=== PATIENT | female | born 1950 | race Caucasian/White ===

== ENCOUNTER → 2017-11-29 10:54 | Outpatient (CLI) | payer OTHER, SELFPAY ==
[2017-11-29 12:19] LABS: Add Manual Diff / Slide Review NO; Basophils Percent Auto 0.6 % (0-2); Eosinophils Percent Auto 2.1 % (2-4); Hemoglobin 11.7 g/dL (12.0-16.0); Lymphocytes Percent Auto 26.3 % (25-40); Mean Corpuscular HGB Conc 34.4 % (30-36); Mean Corpuscular Hemoglobin 29.3 PG (26-34); Mean Corpuscular Volume 85.2 fL (80-100); Monocytes Percent Auto 5.5 % (3-14); Neutrophils Absolute Auto 3500 /uL (3000-5900); Neutrophils Percent Auto 65.5 % (50-75); Platelet Count 219 X10^3/uL (150-400); Red Blood Cell Count 3.99 X10^6/uL (4.0-5.2); Red Cell Distribution Width 15.2 % (11.6-14.8); White Blood Cell Count 5.3 X10^3/uL (4.5-11.0)
[2017-11-29 12:46] LABS: Alanine Aminotransferase 21 IU/L (9-52); Albumin 3.7 g/dL (3.5-5.0); Alkaline Phosphatase 76 U/L (38-126); Aspartate Aminotransferase 19 IU/L (14-36); Bilirubin Total 0.4 mg/dL (0.2-1.3); Blood Urea Nitrogen 21 mg/dL (7-17); Carbon Dioxide 27 mmol/L (22-32); Chloride 106 mmol/L (98-107); Estimated Glomerular Filt Rate 34.4 mL/min (>60); Globulin 3.6 g/dL (1.7-4.1); Glucose 94 mg/dL (80-110); HEMOLYSIS < 15 (0-50); Potassium 3.9 mmol/L (3.4-5.1); Sodium 143 mmol/L (137-145); Total Protein 7.3 g/dL (6.3-8.2)
[2017-11-29 12:55] LABS: Cholesterol 165 mg/dL (140-199); HDL Cholesterol 65 mg/dL (40-60); LDL Cholesterol Calculated 75 mg/dL (<100); Triglycerides 124 mg/dL (35-150)
[2017-11-29 13:19] LABS: Thyroid Stimulating Hormone 2.43 uIU/mL (0.47-4.68)
== END ==
PROVIDERS: Family Provider Internal Medicine Hematology & Oncology; PCP Family Medicine; Visit Provider Family Medicine
DX: E03.9 Hypothyroidism, unspecified (principal); E78.5 Hyperlipidemia, unspecified; I10 Essential (primary) hypertension; D64.9 Anemia, unspecified; C50.912 Malignant neoplasm of unspecified site of left female breast
CPT/HCPCS: 36415; 80053; 80061; 84443; 85025

== ENCOUNTER → 2018-01-09 09:58 | Outpatient (CLI) | payer OTHER, SELFPAY ==
--- NOTE | 2018-01-09 10:00 | DI.US.S_ITS ---
ULTRASOUND OF LEFT BREAST: 01/09/2018 Comparison is made to exams dated: 01/09/2018 mammogram, 12/14/2016 mammogram, 02/03/2016 localization, 02/03/2016 specimen, 02/03/2016 mammogram, and 12/31/2015 mammogram - [facility]. Color flow and real-time ultrasound of the left breast were performed on the areas of interest. Valente scale images of the real-time examination were reviewed. There is a post-surgical scar in the left breast at 2 o'clock middle depth. This correlates as palpated and with mammography findings. IMPRESSION: BENIGN There is no sonographic evidence of malignancy. The post-surgical scar in the left breast is benign. However, clinical follow up is recommended. A 1 year screening mammogram is recommended. This exam was interpreted at Station ID: [id number]. Electronically Signed By: Radha peña/:01/09/2018 11:45:02 letter sent: Clinical Evaluation Ultrasound BI-RADS: 2 Benign
--- NOTE | 2018-01-09 10:00 | DI.MG.S_ITS ---
BILATERAL DIGITAL DIAGNOSTIC MAMMOGRAM 3D/2D POST LUMPECTOMY: 01/09/2018 CLINICAL: Left breast mass. Personal history of breast cancer. Family history of breast cancer. Comparison is made to exams dated: 12/14/2016 mammogram, 02/03/2016 localization, and 02/03/2016 [facility]. There are scattered fibroglandular elements in both breasts. No significant masses, calcifications, or other findings are seen in either breast. IMPRESSION: INCOMPLETE: NEEDS ADDITIONAL IMAGING EVALUATION There is no mammographic abnormality seen in the left breast to correspond with the area of clinical concern, however, targeted ultrasound of the left breast is recommended and will be performed immediately following this exam. This exam was interpreted at Station ID: [id number]. NOTE: For mammograms, a report in lay terms will be sent to the patient. Approximately 15% of breast malignancies will not be visualized mammographically. In the management of a palpable breast mass, a negative mammogram must not discourage biopsy of a clinically suspicious lesion. Electronically Signed By: Radha Sharma M.D. lk/:01/09/2018 10:40:11 letter sent: Additional Imaging Needed ACR BI-RADS Category 0: Incomplete [id number]
== END ==
PROVIDERS: Family Provider Internal Medicine Hematology & Oncology; PCP Family Medicine; Visit Provider Internal Medicine Hematology & Oncology
DX: R92.8 Other abnormal and inconclusive findings on diagnostic imaging of breast (principal); L90.5 Scar conditions and fibrosis of skin; Z85.3 Personal history of malignant neoplasm of breast; Z80.3 Family history of malignant neoplasm of breast
CPT/HCPCS: 76642; 77066; G0279

== ENCOUNTER 2018-01-13 16:00 | Oncology outpatient (ONC) | payer OTHER, SELFPAY ==
[2017-08-02 14:25] LABS: Add Manual Diff / Slide Review NO; Basophils Percent Auto 0.9 % (0-2); Eosinophils Percent Auto 2.4 % (2-4); Hematocrit 33.9 % (36-46); Hemoglobin 11.7 g/dL (12.0-16.0); Lymphocytes Percent Auto 25.2 % (25-40); Mean Corpuscular HGB Conc 34.4 % (30-36); Mean Corpuscular Hemoglobin 28.7 PG (26-34); Mean Corpuscular Volume 83.5 fL (80-100); Monocytes Percent Auto 8.2 % (3-14); Neutrophils Absolute Auto 3200 /uL (3000-5900); Neutrophils Percent Auto 63.3 % (50-75); Platelet Count 249 X10^3/uL (150-400); Red Blood Cell Count 4.06 X10^6/uL (4.0-5.2); Red Cell Distribution Width 15.3 % (11.6-14.8)
[2017-08-02 14:41] LABS: Alanine Aminotransferase 24 IU/L (9-52); Albumin Globulin Ratio 1.1 (1.0-2.8); Alkaline Phosphatase 95 U/L (38-126); Aspartate Aminotransferase 18 IU/L (14-36); BUN Creatinine Ratio 12.9 (6-22); Bilirubin Total 0.4 mg/dL (0.2-1.3); Blood Urea Nitrogen 18 mg/dL (7-17); Calcium 9.3 mg/dL (8.4-10.2); Carbon Dioxide 28 mmol/L (22-32); Chloride 102 mmol/L (98-107); Estimated Glomerular Filt Rate 37.3 mL/min (>60); Globulin 3.6 g/dL (1.7-4.1); Glucose 106 mg/dL (80-110); HEMOLYSIS < 15 (0-50); Potassium 3.8 mmol/L (3.4-5.1); Sodium 139 mmol/L (137-145); Total Protein 7.6 g/dL (6.3-8.2)
--- NOTE | 2017-08-02 16:58 | ONC.GEN.PN ---
Diagnosis (1) Breast cancer, left breast Diagnosis: 08/02/17 16:59 1. Antecedent history of left-sided breast cancer, following a confirmatory needle biopsy on 12/31/2015. Tissue consistent with infiltrating ductal carcinoma. ERA/PRA receptors both strongly positive. The Her 2 [place] protein was under expressed. The patient went on to have a left lumpectomy and sentinel node biopsy on 02/03/2016. Four sentinel lymph nodes were negative for metastatic disease. Grade 2 disease. The primary tumor measured 9 mm. Patient was staged as T1b, N0, grade 2. Oncotype testing on 02/13/2016 confirmed a recurrence score of 10. The patient went on to complete radiation therapy. Initiated on Femara 04/15/2016. Very poorly tolerated. Subsequently discontinued after approximately 1 month of coverage. No subsequent antiestrogen therapy pursued. 2. Recently confirmed atrial fibrillation, under management. 3. Next mammography screening due in either December or January of this year. History of Present Illness History Of Present Illness: 08/02/17 17:03 Marifer returns today for routine follow-up. Her last visit here was in late August of last year. Overall she continues to do very well. She is pain-free. She still has dyspnea on exertion, which she attributes to generalized deconditioning and her weight. Home Medications and Allergies Home Medications Medication Instructions Recorded Confirmed Type cholecalciferol (vitamin D3) 4,000 Q DAY #0 10/10/15 History [Vitamin D3] metronidazole [Metrogel Vaginal] 1 appl TOPICAL HSP #0 04/15/16 History potassium chloride [Klor-Con M20] 20 meq PO [facility] #90 tab 09/03/16 Rx furosemide 20 mg PO QDAY #90 tab 11/04/16 Rx atorvastatin [Lipitor] 20 mg PO HS #90 tab 12/09/16 Rx warfarin [Jantoven] 0 PO SEE INSTRUCTIONS #100 tab 05/31/17 Rx levothyroxine 137 mcg tablet 137 mcg PO Q DAY #90 tab 07/19/17 Rx Allergies Allergy/AdvReac Type Severity Reaction Status Date / Time nickel [NICKEL] Allergy Mild RASH Unverified 06/15/17 13:04 Exam Exam: Blood pressure 156/79. Temperature 98.2??. Pulse rate 72. O2 saturation on room air was 97%. Weight 231 lb. The oropharynx today was clear. Teeth were in excellent repair. There was no direct percussible spinal tenderness. There was no palpable rib cage tenderness. Both lungs were clear to auscultation and percussion. No pathologic lymphadenopathy was noted today in the pre or postauricular, neck, chin, supraclavicular or axillary areas. The breast examination was quite unremarkable bilaterally. There was little if any seroma effect or induration in the left breast. Heart sounds were fine. Her abdomen was soft, nontender and without palpable hepatomegaly. There was no left upper extremity lymphedema. There was no lower extremity fluid retention. Results - Labs 08/02/17 14:13 08/02/17 14:13 Laboratory Last Values WBC 5.0 X10^3/uL (4.5-11.0) 08/02/17 14:13 RBC 4.06 X10^6/uL (4.0-5.2) 08/02/17 14:13 Hgb 11.7 g/dL (12.0-16.0) L 08/02/17 14:13 Hct 33.9 % (36-46) L 08/02/17 14:13 MCV 83.5 fL (80-100) 08/02/17 14:13 MCH 28.7 PG (26-34) 08/02/17 14:13 MCHC 34.4 % (30-36) 08/02/17 14:13 RDW 15.3 % (11.6-14.8) H 08/02/17 14:13 Plt Count 249 X10^3/uL (150-400) 08/02/17 14:13 Neut % (Auto) 63.3 % (50-75) 08/02/17 14:13 Lymph % (Auto) 25.2 % (25-40) 08/02/17 14:13 [place] % (Auto) 8.2 % (3-14) 08/02/17 14:13 Eos % (Auto) 2.4 % (2-4) 08/02/17 14:13 Baso % (Auto) 0.9 % (0-2) 08/02/17 14:13 Neut # (Auto) 3200 /uL (5264-9352) 08/02/17 14:13 Sodium 139 mmol/L (137-145) 08/02/17 14:13 Potassium 3.8 mmol/L (3.4-5.1) 08/02/17 14:13 Chloride 102 mmol/L (98-107) 08/02/17 14:13 Carbon Dioxide 28 mmol/L (22-32) 08/02/17 14:13 BUN 18 mg/dL (7-17) H 08/02/17 14:13 Creatinine 1.40 mg/dL (0.52-1.04) H 08/02/17 14:13 Estimated GFR 37.3 mL/min (>60) L 08/02/17 14:13 BUN/Creatinine Ratio 12.9 (6-22) 08/02/17 14:13 Glucose 106 mg/dL (80-110) 08/02/17 14:13 Calcium 9.3 mg/dL (8.4-10.2) 08/02/17 14:13 Total Bilirubin 0.4 mg/dL (0.2-1.3) 08/02/17 14:13 AST 18 IU/L (14-36) 08/02/17 14:13 ALT 24 IU/L (9-52) 08/02/17 14:13 Alkaline Phosphatase 95 U/L (38-126) 08/02/17 14:13 Total Protein 7.6 g/dL (6.3-8.2) 08/02/17 14:13 Albumin 4.0 g/dL (3.5-5.0) 08/02/17 14:13 Globulin 3.6 g/dL (1.7-4.1) 08/02/17 14:13 Albumin/Globulin Ratio 1.1 (1.0-2.8) 08/02/17 14:13 Impression Marifer is now about 18 months out from her surgery. Her examination today was fine. I did make a strong pitch today for her to be initiated on tamoxifen. She had a terrible go of things with the Femara. She was warned about the rare side effects of endometrial cancer and thrombus. She will call immediately for any vaginal bleeding, unilateral leg swelling or unexplained acute dyspnea. I made note today of her borderline anemia and serum creatinine of 1.6 in late April. I will plan to recheck both of those tests today before her departure. I have her returning for routine follow-up in 3 months. She will see one of our new colleagues at that time. Addendum: Marfier's follow-up CBC today shows improvement in her hemoglobin level from 11.0 to 11.9. Her white count, MCV and platelet count were all normal. Her serum creatinine improved from 1.6 to 1.4. We will follow up again regarding these numbers when she returns for her 3 month revisitatation.
[2017-08-04 18:42] LABS: Cancer Antigen 27.29 17 U/mL (< 38)
--- NOTE | 2017-12-12 12:44 | ONC.PN ---
PN -Subjective Interval history: Chief complaint 67-year-old female with left breast cancer here for scheduled follow-up. History of present illness Mrs. Marifer Harris is a 67-year-old female with left sided breast cancer. It was confirmed by needle biopsy on December the 08/25/2015. And the histology was consistent with infiltrating ductal carcinoma. The cancer is ER positive NV positive and her 2 negative. The patient went on to have a left lumpectomy and sentinel lymph node biopsy on February 03, 2016. Four lymph nodes were negative for metastasis. Grade 2 disease. The primary tumor measured 9 mm. Patient was staged pT1 B N0 grade 2. Oncotype recurrence score performed on February 13, 2016 was 10. Patient then completed a full course of radiation treatment. She was initiated on Femara on April 15, 2016. Patient tolerated extremely poor and had to stop about 1 month later. She was evaluated by Dr. Coleman about in July of 2017, who pursuaded her to start treatment with tamoxifen. Patient said that she is now taking tamoxifen 20 mg once daily and tolerated very well. She recalled that when she was on Femara, she had no energy at all and felt terrible. She was also found to have a kidney damage after she was started on Femara. During her previous visit with Dr. Coleman, the kidney function has been stable with creatinine level 1.4. Patient presents here today for continued follow-up. Patient is not taking in addition warfarin for atrial fibrillation. She denies any abnormal bleeding. Patient reports good energy and good appetite. Her weight has been stable. Patient has not had her annual mammogram yet has already received the reminder. - Additional ROS All systems PM: reviewed and no additional remarkable complaints except as stated Home Medications and Allergies Home Medications Medication Instructions Recorded Confirmed Type cholecalciferol (vitamin D3) 4,000 units PO Q DAY #0 10/10/15 12/12/17 History [Vitamin D3] atorvastatin 20 mg tablet 20 mg PO HS #90 tab 09/26/17 12/12/17 Rx furosemide 20 mg tablet 20 mg PO QDAY #90 tab 09/26/17 12/12/17 Rx metronidazole 0.75 % vaginal gel 0.75 % VAG BEDTIME PRN #0 gram 09/26/17 12/12/17 History potassium chloride ER 20 mEq 20 meq PO [facility] #90 tab 09/26/17 12/12/17 Rx tablet,extended release(part/cryst) tamoxifen 20 mg tablet 20 mg PO DAILY 09/26/17 12/12/17 History warfarin 5 mg tablet 5 mg PO SEE INSTRUCTIONS #100 tab 09/27/17 12/12/17 Rx levothyroxine 137 mcg tablet 137 mcg PO Q DAY #90 tab 10/26/17 12/12/17 Rx Allergies Allergy/AdvReac Type Severity Reaction Status Date / Time nickel [NICKEL] Allergy Mild RASH Verified 11/15/17 15:32 Exam Vital signs: Temperature 97.6?, heart rate 74, respiratory rate 17, blood pressure 138/74, saturation 99% on room air, weight 105.4 kilos. ECOG 1 Narrative: Constitutional: Well developed, well nourished, not in any acute respiratory distress, average body habitus, well groomed, pleasant and cooperative. HEENT: Normocephalic atraumatic. Extraocular muscle movement intact. Pupils are round, equal and reactive to light and accommodations. Anicteric sclera. No hearing difficulty; Oral mucus membrane moist and without ulcers. Neck: Supple, symmetrical, and tracheal midline; No palpable thyromegaly and no palpable lymph nodes. Respiratory: No use of accessory muscles. Clear to auscultation, and no wheezes or rales or rubs. Cardiovascular: Regular rate and rhythm, S1 and S2 normal, no murmurs gallops or rubs. No JVD. No pitting edema of lower extremities. Abdomen: Soft, nontender, non-distended, bowel sounds normal, no palpable organomegaly, no hernia, no palpable masses. Lower extremities: No palpable pedal edema. Lymphatic: no palpable lymph nodes in the neck, axillae, or groins. Musculoskeletal: normal gait and station, no clubbing, no cyanosis, no pitting edema. Skin: no rashes, no ulcers, no petechiae Neurological: Awake and alert and oriented x3. CN II-XII grossly intact. No focal motor or sensory deficit. Psychiatric: Good judgment, good insight, normal affect, normal thought process, cooperative, no depression, no anxiety. Breast exam: Right: The nipple is not retracted, no skin changes. No palpable masses or nodules and no palpable lymph nodes in the right axilla. Left: The nipple is without any retraction. There is no skin changes. There is surgical wound that has completely healed. There is a 1 cm size nodule at about 2-3 o'clock location just adjacent to the surgical wound. Nontender. No palpable lymph nodes in the left axilla. Physical examinations were chaperoned. Results - Labs All the lab results were reviewed with the patient. The most recent laboratory tests were performed on November 29, 2017 and creatinine level is 1.5 which is slightly higher than previous 1.4 in July of 2017. No other abnormal findings of of the blood work, except mild anemia which is stable. Hgb was 11.7 Assessment and Plan (1) Breast cancer, left breast Patient will continue to take the tamoxifen 20 mg once daily. I once again emphasized the potential side effects associated with the use of tamoxifen especially endometrial carcinoma as well as the increased risk of thromboembolism. Patient voiced understanding. Patient is now taking warfarin for her atrial fibrillation. It will help prevent the thromboembolism. Patient is due for her annual mammogram. I will order the mammogram I will bring the patient back after the mammogram is done. On my physical examination, there is a 1 cm nodule in the left breast at 2-3 o'clock region which could be just a scar after the previous breast surgery. (2) CKD (chronic kidney disease) stage 3, GFR 30-59 ml/min Patient has a chronic kidney disease stage 3. The exact etiology is not sure. The relationship with Femara is also uncertain. I encouraged the patient to stay follow-up with her primary care provider and also possibly referred to kidney specialist to establish care. Patient voiced understanding. (3) Anemia Chronic anemia probably related to the chronic kidney disease. We will continue to follow since it is stable without any symptoms.
[2017-12-12 13:20] VITALS: BP 138/74; PULSE 74; RESP 17; TEMP 36.4; O2SAT 99
--- NOTE | 2018-01-02 11:18 | ONC.NAV ---
Description: Survivorship Care Plan Summary Activity: Copy sent to patient, PCP notified that a copy can be found scanned into the patient's EMR.
[2018-01-13 16:15] VITALS: BP 134/61; PULSE 73; RESP 18; TEMP 36.7; O2SAT 99
--- NOTE | 2018-01-13 16:36 | ONC.PN ---
PN -Subjective Interval history: 67-year-old female with left breast cancer here for scheduled follow-up. Since her previous visit, patient underwent a mammogram on January 09, 2018. The mammogram showed scattered fibroglandular elements in both breasts. The same day ultrasound showed no sonographic evidence malignancy. A 1 year screening mammogram is recommended. In addition patient also was evaluated by Nephrology. History of present illness Mrs. Marifer Harris is a 67-year-old female with left sided breast cancer. It was confirmed by needle biopsy on Dec 11, 2015. 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 The cancer is ER positive [place] positive and HER2 negative. The patient went on to have a left lumpectomy and sentinel lymph node biopsy on Feb 03, 2016. Four lymph nodes were negative for metastasis. Grade 2 disease. The primary tumor measured 9 mm. Patient was staged pT1b N0, grade 2. Oncotype recurrence score performed on Feb 13, 2016 was 10. Patient then completed a full course of radiation treatment. She was initiated on Femara on Apr 15, 2016. Patient tolerated extremely poor and had to stop about 1 month later. She was evaluated by Dr. Coleman about in July of 2017, who pursuaded her to start treatment with tamoxifen. Patient said that she is now taking tamoxifen 20 mg once daily and tolerated very well. She recalled that when she was on Femara, she had no energy at all and felt terrible. She was also found to have a kidney damage after she was started on Femara. During her previous visit with Dr. Coleman, the kidney function has been stable with creatinine level 1.4. Patient presents here today for continued follow-up. Patient is now taking in addition warfarin for atrial fibrillation. . - Additional ROS All systems PM: reviewed and no additional remarkable complaints except as stated Home Medications and Allergies Home Medications Medication Instructions Recorded Confirmed Type cholecalciferol (vitamin D3) 4,000 units PO Q DAY #0 10/10/15 12/12/17 History [Vitamin D3] atorvastatin 20 mg tablet 20 mg PO HS #90 tab 09/26/17 12/12/17 Rx furosemide 20 mg tablet 20 mg PO QDAY #90 tab 09/26/17 12/12/17 Rx metronidazole 0.75 % vaginal gel 0.75 % VAG BEDTIME PRN #0 gram 09/26/17 12/12/17 History potassium chloride ER 20 mEq 20 meq PO [facility] #90 tab 09/26/17 12/12/17 Rx tablet,extended release(part/cryst) tamoxifen 20 mg tablet 20 mg PO DAILY 09/26/17 12/12/17 History warfarin 5 mg tablet 5 mg PO SEE [facility] #100 tab 09/27/17 12/12/17 Rx levothyroxine 137 mcg tablet 137 mcg PO Q DAY #90 tab 10/26/17 12/12/17 Rx Allergies Allergy/AdvReac Type Severity Reaction Status Date / Time nickel [NICKEL] Allergy Mild RASH Verified 11/15/17 15:32 Exam Vital signs: Temp 98.1 F 01/13/18 16:15 Pulse 73 01/13/18 16:15 Resp 18 01/13/18 16:15 BP 134/61 01/13/18 16:15 Pulse Ox 99 01/13/18 16:15 ECOG 1 Narrative: Constitutional: Well developed, well nourished, not in any acute respiratory distress, average body habitus, well groomed, pleasant and cooperative. HEENT: Normocephalic atraumatic. Extraocular muscle movement intact. Pupils are round, equal and reactive to light and accommodations. Anicteric sclera. No hearing difficulty; Oral mucus membrane moist and without ulcers. Neck: Supple, symmetrical, and tracheal midline; No palpable thyromegaly and no palpable lymph nodes. Respiratory: No use of accessory muscles. Clear to auscultation, and no wheezes or rales or rubs. Cardiovascular: Regular rate and rhythm, S1 and S2 normal, no murmurs gallops or rubs. No JVD. No pitting edema of lower extremities. Abdomen: Soft, nontender, non-distended, bowel sounds normal, no palpable organomegaly, no hernia, no palpable masses. Lower extremities: No palpable pedal edema. Lymphatic: no palpable lymph nodes in the neck, axillae, or groins. Musculoskeletal: normal gait and station, no clubbing, no cyanosis, no pitting edema. Skin: no rashes, no ulcers, no petechiae Neurological: Awake and alert and oriented x3. CN II-XII grossly intact. No focal motor or sensory deficit. Psychiatric: Good judgment, good insight, normal affect, normal thought process, cooperative, no depression, no anxiety. Breast exam: DEFERRED. Results - Labs Lab from november 29, 2017: wbc 5.3, hemoglobin 11.7, hematocrit 34, platelets 219, sodium 143, potassium 3.9, chloride 106, carbon dioxide 27, BUN 21, creatinine 1.5, EGFR 34.4, glucose level 94, calcium 9.0, total bilirubin 0.4, total protein 7.3, albumin 3.7, triglyceride 124, cholesterol 165, LDL cholesterol 75 high density cholesterol 65 Assessment and Plan (1) Breast cancer, left breast I reviewed the mammogram and the ultrasound study of the left breast with the patient. There is no evidence of abnormal findings. A 1 year follow-up screening mammogram is recommended. Plan 1. Continue Tamoxifen 20 mg daily 2. RTC in 6 months, CBC, CMP 3. Next mammogram due in one year (01/2019) (2) CKD (chronic kidney disease) stage 3, GFR 30-59 ml/min Patient has a chronic kidney disease stage 3. The exact etiology is not sure. The relationship with Femara is also uncertain. 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 Alvarez (3) Anemia Chronic anemia probably related to the chronic kidney disease. We will continue to follow since it is stable without any symptoms. Plan: Surveillance.
--- NOTE | 2018-01-13 16:47 | P.PNONC_ITS ---
PN -Subjective Interval history: 67-year-old female with left breast cancer here for scheduled follow-up. Since her previous visit, patient underwent a mammogram on January 09, 2018. The mammogram showed scattered fibroglandular elements in both breasts. The same day ultrasound showed no sonographic evidence malignancy. A 1 year screening mammogram is recommended. In addition patient also was evaluated by Nephrology. History of present illness Mrs. Marifer Harris is a 67-year-old female with left sided breast cancer. It was confirmed by needle biopsy on Dec 11, 2015. 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 The cancer is ER positive SD positive and HER2 negative. The patient went on to have a left lumpectomy and sentinel lymph node biopsy on Feb 03, 2016. Four lymph nodes were negative for metastasis. Grade 2 disease. The primary tumor measured 9 mm. Patient was staged pT1b N0, grade 2. Oncotype recurrence score performed on Feb 13, 2016 was 10. Patient then completed a full course of radiation treatment. She was initiated on Femara on Apr 15, 2016. Patient tolerated extremely poor and had to stop about 1 month later. She was evaluated by Dr. Coleman about in July of 2017, who pursuaded her to start treatment with tamoxifen. Patient said that she is now taking tamoxifen 20 mg once daily and tolerated very well. She recalled that when she was on Femara, she had no energy at all and felt terrible. She was also found to have a kidney damage after she was started on Femara. During her previous visit with Dr. Coleman, the kidney function has been stable with creatinine level 1.4. Patient presents here today for continued follow-up. Patient is now taking in addition warfarin for atrial fibrillation. . - Additional ROS All systems PM: reviewed and no additional remarkable complaints except as stated Home Medications and Allergies Home Medications Medication Instructions Recorded Confirmed Type cholecalciferol (vitamin D3) 4,000 units PO Q DAY #0 10/10/15 12/12/17 History [Vitamin D3] atorvastatin 20 mg tablet 20 mg PO HS #90 tab 09/26/17 12/12/17 Rx furosemide 20 mg tablet 20 mg PO QDAY #90 tab 09/26/17 12/12/17 Rx metronidazole 0.75 % vaginal gel 0.75 % VAG BEDTIME PRN #0 gram 09/26/17 History potassium chloride ER 20 mEq 20 meq PO AMCC #90 tab 09/26/17 12/12/17 Rx tablet,extended release(part/cryst) tamoxifen 20 mg tablet 20 mg PO DAILY 09/26/17 12/12/17 History warfarin 5 mg tablet 5 mg PO SEE INSTRUCTIONS #100 tab 09/27/17 12/12/17 Rx levothyroxine 137 mcg tablet 137 mcg PO Q DAY #90 tab 10/26/17 12/12/17 Rx Allergies Allergy/AdvReac Type Severity Reaction Status Date / Time nickel [NICKEL] Allergy Mild RASH Verified 11/15/17 15:32 Exam Vital signs: 3 Temp 98.1 F 01/13/18 16:15 Pulse 73 01/13/18 16:15 Resp 18 01/13/18 16:15 BP 134/61 01/13/18 16:15 Pulse Ox 99 01/13/18 16:15 ECOG 1 Narrative: Constitutional: Well developed, well nourished, not in any acute respiratory distress, average body habitus, well groomed, pleasant and cooperative. HEENT: Normocephalic atraumatic. Extraocular muscle movement intact. Pupils are round, equal and reactive to light and accommodations. Anicteric sclera. No hearing difficulty; Oral mucus membrane moist and without ulcers. Neck: Supple, symmetrical, and tracheal midline; No palpable thyromegaly and no palpable lymph nodes. Respiratory: No use of accessory muscles. Clear to auscultation, and no wheezes or rales or rubs. Cardiovascular: Regular rate and rhythm, S1 and S2 normal, no murmurs gallops or rubs. No JVD. No pitting edema of lower extremities. Abdomen: Soft, nontender, non-distended, bowel sounds normal, no palpable organomegaly, no hernia, no palpable masses. Lower extremities: No palpable pedal edema. Lymphatic: no palpable lymph nodes in the neck, axillae, or groins. Musculoskeletal: normal gait and station, no clubbing, no cyanosis, no pitting edema. Skin: no rashes, no ulcers, no petechiae Neurological: Awake and alert and oriented x3. CN II-XII grossly intact. No focal motor or sensory deficit. Psychiatric: Good judgment, good insight, normal affect, normal thought process , cooperative, no depression, no anxiety. Breast exam: DEFERRED. Results - Labs Lab from november 29, 2017: wbc 5.3, hemoglobin 11.7, hematocrit 34, platelets 219, sodium 143, potassium 3.9, chloride 106, carbon dioxide 27, BUN 21, creatinine 1.5, EGFR 34.4, glucose level 94, calcium 9.0, total bilirubin 0.4, total protein 7.3, albumin 3.7, triglyceride 124, cholesterol 165, LDL cholesterol 75 high density cholesterol 65 Assessment and Plan (1) Breast cancer, left breast I reviewed the mammogram and the ultrasound study of the left breast with the patient. There is no evidence of abnormal findings. A 1 year follow-up screening mammogram is recommended. Plan 1. Continue Tamoxifen 20 mg daily 2. RTC in 6 months, CBC, CMP 3. Next mammogram due in one year (01/2019) (2) CKD (chronic kidney disease) stage 3, GFR 30-59 ml/min Patient has a chronic kidney disease stage 3. The exact etiology is not sure. The relationship with Femara is also uncertain. I encouraged the patient to stay follow-up with her primary care provider Plan: She is now being followed by hospice rn Dr. Alvarez (3) Anemia Chronic anemia probably related to the chronic kidney disease. We will continue to follow since it is stable without any symptoms. Plan: Surveillance.
--- NOTE | 2018-01-23 16:00 | PC.NURSE ---
Triage: pt called to ask when she is supposed to get a screening mammogram next. Per Dr Gomez's dictation, pt is due for her next screening mammogram in 1 year 01/2019. Pt states she was confused because she got a letter from radiology stating that she may need further imaging tests. Explained that she already had ultrasound which confirmed the findings of no abnormalities found by mammogram. Nothing in Dr Gomez's note suggests any further imaging needs to be done currently.
== END 2018-01-14 12:00 ==
PROVIDERS: Family Provider Family Medicine; PCP Family Medicine; Visit Provider Internal Medicine Hematology & Oncology
DX: C50.912 Malignant neoplasm of unspecified site of left female breast (principal); I48.91 Unspecified atrial fibrillation; N18.3 Chronic kidney disease, stage 3 (moderate); Z17.0 Estrogen receptor positive status [ER+]; D64.9 Anemia, unspecified; Z79.810 Long term (current) use of selective estrogen receptor modulators (SERMs); Z79.01 Long term (current) use of anticoagulants
CPT/HCPCS: 36415; 80053; 85025; 86300; 99214; 99215

== ENCOUNTER → 2018-02-09 10:07 | Outpatient (CLI) | payer OTHER, SELFPAY ==
--- NOTE | 2018-02-09 | DI.US.S_ITS ---
PROCEDURE: US RENAL COMPLETE INDICATIONS: CHRONIC KIDNEY DISEASE TECHNIQUE: Real-time scanning was performed of the kidneys and bladder, with image documentation. COMPARISON: [facility], , RENAL COMPLETE, 10/11/2016, 13:27. FINDINGS: Kidneys: Kidneys are normal in size. Right kidney measures 10.3 cm long; left kidney measures 10.1 cm long. Right renal cortical thickness is 1.4 cm; left renal cortical thickness is 1.2 cm. Renal cortical echotexture is normal. No hydronephrosis or nephrolithiasis. No suspicious solid mass lesions. Bladder: Pre-void bladder volume is 91 mL. Post-void residual is 7 mL. Pre-void images demonstrate no intraluminal masses or stones. On pre-void images, bilateral ureteral jets are noted with color Doppler interrogation. (Of note, ureteral jets may not be detectable in up to 25% of cases due to insufficient differences in specific gravity between ureteral and bladder urine). Miscellaneous: No free pelvic fluid. IMPRESSION: Normal appearance of the kidneys. Dictated by: Mc VALE Interpreted: Joaquín Hernandez MD on 02/09/2018 at 14:21 Approved by: Joaquín Hernandez M.D. on 02/09/2018 at 16:42
== END ==
PROVIDERS: PCP Family Medicine; Visit Provider Physician Assistant
DX: N18.9 Chronic kidney disease, unspecified (principal)
CPT/HCPCS: 76770

== ENCOUNTER 2018-03-22 09:37 | Emergency (ER) | payer OTHER, SELFPAY ==
[2018-03-22 09:40] VITALS: BP 150/67; PULSE 82; RESP 18; TEMP 36.7; O2SAT 95
--- NOTE | 2018-03-22 09:49 | ED.GIBLEED ---
HPI - GI Bleed General Chief complaint: Syncope Stated complaint: passed out last night,blood in stool Time Seen by Provider: 03/22/18 09:47 Source: patient and family Mode of arrival: ambulatory Limitations: no limitations History of Present Illness HPI Narrative: 67-year-old female, former smoker presents with a chief complaint a near syncopal episode last evening. She has had trouble with cramping abdominal discomfort off for many months. Typically her symptoms will last a short bit and then she feels better. She is unable to establish any pattern to these cramps but she has been evaluated multiple times. Yesterday the patient was walking when her cramps became very sudden and intense causing her to feel sweaty and then lightheaded. She helped herself to the ground and may or may not have passed out completely. She denies any chest pain or shortness of breath. Her symptoms past after 15 min or so and she was at her normal baseline until this morning when she had a bowel movement and noticed some blood on toilet paper. Given that she is on Coumadin for her AFib and had this near syncopal episode she was instructed by her primary care provider to present to the emergency department for evaluation MD complaint: blood on toilet paper Onset (ago): day(s) Pain Consistency: intermittent, now resolved and colicky Severity: moderate Relieving factors: none Exacerbating factors: none Context: anticoagulant use Associated symptoms: abdominal pain Treatments Prior to Arrival: none Related Data Home Medications Medication Instructions Recorded Confirmed tamoxifen 20 mg tablet 20 mg PO DAILY 09/26/17 03/22/18 atorvastatin [Lipitor] 20 mg PO BEDTIME 03/22/18 03/22/18 diltiazem HCl [Cartia XT] 300 mg PO QPM 03/22/18 03/22/18 flecainide 100 mg PO Q12H 03/22/18 03/22/18 levothyroxine 137 mcg PO DAILY 03/22/18 03/22/18 metronidazole 1 applic TOPICAL BEDTIME PRN 03/22/18 03/22/18 warfarin 5 mg PO MOTUWETHFRSA 03/22/18 03/22/18 warfarin [Jantoven] 7.5 mg PO FARRELL 03/22/18 03/22/18 Allergies Allergy/AdvReac Type Severity Reaction Status Date / Time nickel [NICKEL] Allergy Mild RASH Verified 11/15/17 15:32 Review of Systems Constitutional Denies chills, Denies fever(s), Denies lethargy and Denies weakness Eyes Denies change in vision, Denies eye discharge, Denies irritation and Denies loss of vision ENT Ears, Nose, Mouth, and Throat: Denies change in voice, Denies neck pain and Denies sore throat Cardiovascular Denies chest pain, Denies irregular heart rhythm, Denies lightheadedness, Denies palpitations, Denies dyspnea, Denies dyspnea on exertion and Denies orthopnea Respiratory Denies cough, Denies dyspnea, Denies dyspnea on exertion and Denies wheezing Gastrointestinal Gastrointestinal: Reports abdominal pain, Denies change in bowel habits, Denies diarrhea, Denies nausea and Denies vomiting Genitourinary Denies hematuria, Denies flank pain, Denies urinary incontinence and Denies urinary urgency Musculoskeletal Denies neck pain Integumentary/Breasts Denies pruritus, Denies erythema, Denies rash and Denies wounds Neurologic Denies confusion, Denies loss of vision and Denies weakness Psychiatric Denies anxiety, Denies confusion, Denies depression, Denies homicidal ideation and Denies suicidal ideation Endocrine Denies palpitations Hematologic/Lymphatic Denies easy bruising Allergic/Immunologic Denies wheezing [facility] Medical History Atrial fibrillation (Chronic) Depression (Chronic 1997) Dyspepsia (Chronic) Hypothyroidism (Chronic 1997) Menopause (Chronic) Mitral regurgitation (Chronic 05/2014) Rosacea (Chronic 2015) Sleep apnea (Chronic) Ankle pain (Resolved 2015) Chicken pox (Resolved ~1962) Foot pain (Resolved 2015) Mumps (Resolved ~1957) Surgical History Anesthesia (Resolved) History of bilateral salpingo-oophorectomy (BSO) (Resolved 11/26/16) History of cardiac radiofrequency ablation (RFA) (Resolved 01/2015) History of knee replacement (Resolved 10/04/08) Status post tubal ligation (Resolved 1979) Family History Brother Tachycardia Hyperlipidemia Alzheimer's dementia, Onset Age: 55 Bladder cancer Father CAD (coronary artery disease) Mother Age: 90 Hypothyroidism DDD (degenerative disc disease) Dementia Grandfather Heart disease Grandmother Heart disease Grandfather No problems noted. Grandmother No problems noted. Social History marital status: household members: family lives independently: Yes caregiver/support person: No housing: house Smoking Status: Former smoker second hand exposure: No alcohol intake: never substance use type: does not use Exam Narrative Exam Narrative: GENERAL: 67-year-old female, pleasant, resting comfortably minimal distress HEAD: Atraumatic. Normocephalic. No temporal or scalp tenderness. EYES: Pupils equal round and reactive. Extraocular motions intact. No scleral icterus. No injection or drainage. ENT: Nose without bleeding, purulent drainage or septal hematoma. Throat without erythema, tonsillar hypertrophy or exudate. Uvula midline. Airway patent. NECK: Trachea midline. No JVD or lymphadenopathy. Supple, nontender, no meningeal signs. CARDIOVASCULAR: Regular rate and rhythm without murmurs, gallops, or rubs. RESPIRATORY: Clear to auscultation. Breath sounds equal bilaterally. No wheezes, rales, or rhonchi. GASTROINTESTINAL: Abdomen soft, non-tender, nondistended. No hepato-splenomegaly, or palpable masses. No guarding. RECTAL: Very minimal amount of bright red blood on tip of finger. No hernia fissure or pain on palpation. This test performed with patient's permission and female nursing clinical recruiter at bedside EXTREMITIES: No clubbing, cyanosis, or edema. No joint tenderness, effusion, or edema noted. BACK: Nontender without deformity or crepitance. No flank tenderness. NEURO: AOx3. SKIN: No rash or erythema. Initial Vital Signs Initial Vital Signs: Vital Signs Temperature 98.1 F 03/22/18 09:40 Pulse Rate 82 03/22/18 09:40 Respiratory Rate 18 03/22/18 09:40 Blood Pressure 150/67 H 03/22/18 09:40 Pulse Oximetry 95 03/22/18 09:40 Course Orders Ordered: ED Orders 03/22/18 10:06 EKG-12 Lead Routine 03/22/18 10:30 Complete Blood Count AUTO DIFF Stat Comprehensive Metabolic Panel Stat Partial Thromboplastin Time Stat Prothrombin Time INR Stat Troponin & CK Cardiac Panel Stat Type and Screen Stat Discontinued Medications Ondansetron HCl (Zofran) 4 mg IV NOW ONE Stop: 03/22/18 09:48 Last Admin: 03/22/18 10:44 Dose: 4 mg Pantoprazole Sodium (Protonix) 40 mg IV NOW ONE Stop: 03/22/18 09:48 Last Admin: 03/22/18 10:44 Dose: 40 mg Reevaluation(s) Reevaluation #1: Patient feels great at time of discharge. Asymptomatic with orthostatics and able to ambulate to the department without difficulty Vital Signs - 8 hr 03/22/18 09:40 03/22/18 11:00 03/22/18 12:00 Temperature 98.1 F Pulse Rate 82 70 75 Pulse Rate [Orthostatic Sitting] Pulse Rate [Orthostatic Standing] Respiratory Rate 18 Blood Pressure 150/67 H Blood Pressure [Left Arm] 134/71 151/110 H Blood Pressure [Orthostatic Sitting] Blood Pressure [Orthostatic Standing] Pulse Oximetry 95 96 97 03/22/18 12:28 Temperature Pulse Rate Pulse Rate [Orthostatic Sitting] 75 Pulse Rate [Orthostatic Standing] 90 Respiratory Rate Blood Pressure Blood Pressure [Left Arm] Blood Pressure [Orthostatic Sitting] 151/110 H Blood Pressure [Orthostatic Standing] 154/87 H Pulse Oximetry MDM - GI Bleed Differential Diagnosis Likely Lower gastrointestinal hemorrhage Medical Records Attestation: I reviewed the patient's medical records. Lab Data Attestation: I reviewed the patient's lab results. Result diagrams: 03/22/18 10:30 03/22/18 10:30 Lab Results 03/22/18 03/22/18 03/22/18 Range/Units 10:30 10:30 10:30 WBC 9.2 (4.5-11.0) X10^3/uL RBC 4.09 (4.0-5.2) X10^6/uL Hgb 11.7 L (12.0-16.0) g/dL Hct 35.1 L (36-46) % MCV 85.8 (80-100) fL MCH 28.6 (26-34) PG MCHC 33.3 (30-36) % RDW 14.6 (11.6-14.8) % Plt Count 245 (150-400) X10^3/uL Neut % (Auto) 78.4 H (50-75) % Lymph % (Auto) 15.9 L (25-40) % [place] % (Auto) 4.7 (3-14) % Eos % (Auto) 0.4 L (2-4) % Baso % (Auto) 0.6 (0-2) % Neut # (Auto) 7200 H (8182-7343) /uL Lymph # (Auto) 1500 (1670-9083) /uL [place] # (Auto) 400 (0-900) /uL Eos # (Auto) 0 (0-450) /uL Baso # (Auto) 100 (0-100) /uL PT 27.6 H (10.1-12.7) SECONDS INR 2.3 H (0.9-1.3) APTT 36 (26.4-36.2) SECONDS Sodium 139 (137-145) mmol/L Potassium 3.7 (3.4-5.1) mmol/L Chloride 104 (98-107) mmol/L Carbon Dioxide 27 (22-32) mmol/L BUN 19 H (7-17) mg/dL Creatinine 1.40 H (0.52-1.04) mg/dL Estimated GFR 37.3 L (>60) mL/min BUN/Creatinine Ratio 13.6 (6-22) Glucose 99 (80-110) mg/dL Calcium 8.7 (8.4-10.2) mg/dL Total Bilirubin 0.4 (0.2-1.3) mg/dL AST 19 (14-36) IU/L ALT 25 (9-52) IU/L Alkaline Phosphatase 59 (38-126) U/L Total Creatine Kinase 34 (30-135) U/L CK-MB (CK-2) TNP CK-MB (CK-2) Rel Index TNP Troponin I < 0.012 (0.01-0.034) ng/mL Total Protein 6.6 (6.3-8.2) g/dL Albumin 3.5 (3.5-5.0) g/dL Globulin 3.1 (1.7-4.1) g/dL Albumin/Globulin Ratio 1.1 (1.0-2.8) Blood Type Antibody Screen 03/22/18 Range/Units 10:30 WBC (4.5-11.0) X10^3/uL RBC (4.0-5.2) X10^6/uL Hgb (12.0-16.0) g/dL Hct (36-46) % MCV (80-100) fL MCH (26-34) PG MCHC (30-36) % RDW (11.6-14.8) % Plt Count (150-400) X10^3/uL Neut % (Auto) (50-75) % Lymph % (Auto) (25-40) % [place] % (Auto) (3-14) % Eos % (Auto) (2-4) % Baso % (Auto) (0-2) % Neut # (Auto) (8160-0514) /uL Lymph # (Auto) (0710-0358) /uL [place] # (Auto) (0-900) /uL Eos # (Auto) (0-450) /uL Baso # (Auto) (0-100) /uL PT (10.1-12.7) SECONDS INR (0.9-1.3) APTT (26.4-36.2) SECONDS Sodium (137-145) mmol/L Potassium (3.4-5.1) mmol/L Chloride (98-107) mmol/L Carbon Dioxide (22-32) mmol/L BUN (7-17) mg/dL Creatinine (0.52-1.04) mg/dL Estimated GFR (>60) mL/min BUN/Creatinine Ratio (6-22) Glucose (80-110) mg/dL Calcium (8.4-10.2) mg/dL Total Bilirubin (0.2-1.3) mg/dL AST (14-36) IU/L ALT (9-52) IU/L Alkaline Phosphatase (38-126) U/L Total Creatine Kinase (30-135) U/L CK-MB (CK-2) CK-MB (CK-2) Rel Index Troponin I (0.01-0.034) ng/mL Total Protein (6.3-8.2) g/dL Albumin (3.5-5.0) g/dL Globulin (1.7-4.1) g/dL Albumin/Globulin Ratio (1.0-2.8) Blood Type O Positive Antibody Screen Negative [facility] Narrative Medical decision making narrative: Multiple etiologies for patient's symptoms considered including: [Arrhythmia, but thought less likely given lack of palpitations and her prodromal symptoms. Anemia or hypotension considered but thought not to be primary factor given her resolution of symptoms without addressing this cause. Vagal response to pain thought likely to be a large contributor given presence of significant pain, diaphoresis and slow onset with complete resolution after pain improved. Patient's symptoms improved or duration of stay with above-stated therapies. Findings and discharge diagnosis discussed with patient/family followed by verbalization of understanding Return precautions discussed with patient/family whom verbalize understanding. Discharge Plan Departure Patient Disposition: Home Clinical Impression: Bright red rectal bleeding Discharge Date/Time: 03/22/18 13:20 Interventions: ED Discharge Assessment Last Done: 03/22/18 13:20 Instructions: DI for Rectal Bleeding Activity Restrictions/Additional Instructions: *You have been diagnosed with [ acute rectal bleed, therapeutic INR ] *What to do: *Take medications as directed *Follow up with your primary care provider in 2-3 days, call for an appointment. Let them know you were seen in the Emergency Department and that we ask that you be seen in follow up *Return to ER if you should have any new, worsening or concerning symptoms Prescriptions: No Action tamoxifen 20 mg tablet 20 mg PO DAILY RF: 0 diltiazem HCl [Cartia XT] 300 mg capsule,extended release 24hr 300 mg PO QPM RF: 0 flecainide 100 mg tablet 100 mg PO Q12H RF: 0 levothyroxine 137 mcg tablet 137 mcg PO DAILY RF: 0 atorvastatin [Lipitor] 20 mg tablet 20 mg PO BEDTIME RF: 0 warfarin 5 mg tablet 5 mg PO MOTUWETHFRSA RF: 0 metronidazole 0.75 % Gel 1 applic TOPICAL BEDTIME PRN (Reason: ROSACIA) RF: 0 warfarin [Jantoven] 5 mg tablet 7.5 mg PO FARRELL RF: 0 Referrals: Lily Belcher MD [Primary Care Provider] - Melissa Cast MD [Physician] -
--- NOTE | 2018-03-22 10:23 | PC.NURSE ---
hx of afib on warfarin, pt reports, intermittent diarrhea for 3 weeks, last night approx 630pm, developed abdominal cramping, felt like fainting, leaned against the wall, sat self down. then walk to the bathroom, pt did have have some nausea and vomiting. slept , then at 5am, noted blood when wiping. still has nausea at this time. pt report [place] [facility] [place] [facility].
[2018-03-22] MEDS: ONDANSETRON 4 MG/2 ML INJ IV (10:44)
[2018-03-22] MEDS: PANTOPRAZOLE 40 MG VIAL IV (10:44)
[2018-03-22 10:51] LABS: Add Manual Diff / Slide Review NO; Basophils Absolute Auto 100 /uL (0-100); Basophils Percent Auto 0.6 % (0-2); Eosinophils Absolute Auto 0 /uL (0-450); Eosinophils Percent Auto 0.4 % (2-4); Hematocrit 35.1 % (36-46); Hemoglobin 11.7 g/dL (12.0-16.0); Lymphocytes Absolute Auto 1500 /uL (1100-4500); Lymphocytes Percent Auto 15.9 % (25-40); Mean Corpuscular HGB Conc 33.3 % (30-36); Mean Corpuscular Hemoglobin 28.6 PG (26-34); Mean Corpuscular Volume 85.8 fL (80-100); Monocytes Absolute Auto 400 /uL (0-900); Monocytes Percent Auto 4.7 % (3-14); Neutrophils Absolute Auto 7200 /uL (1500-7000); Neutrophils Percent Auto 78.4 % (50-75); Platelet Count 245 X10^3/uL (150-400); Red Blood Cell Count 4.09 X10^6/uL (4.0-5.2); Red Cell Distribution Width 14.6 % (11.6-14.8); White Blood Cell Count 9.2 X10^3/uL (4.5-11.0)
[2018-03-22 10:52] LABS: INR 2.3 (0.9-1.3); Prothrombin Time 27.6 SECONDS (10.1-12.7)
[2018-03-22 10:55] LABS: PTT Partial Thromboplastin Tim 36 SECONDS (26.4-36.2)
[2018-03-22 10:57] LABS: Alanine Aminotransferase 25 IU/L (9-52); Albumin 3.5 g/dL (3.5-5.0); Albumin Globulin Ratio 1.1 (1.0-2.8); Alkaline Phosphatase 59 U/L (38-126); Aspartate Aminotransferase 19 IU/L (14-36); BUN Creatinine Ratio 13.6 (6-22); Bilirubin Total 0.4 mg/dL (0.2-1.3); Blood Urea Nitrogen 19 mg/dL (7-17); Calcium 8.7 mg/dL (8.4-10.2); Carbon Dioxide 27 mmol/L (22-32); Chloride 104 mmol/L (98-107); Creatine Kinase 34 U/L (30-135); Estimated Glomerular Filt Rate 37.3 mL/min (>60); Globulin 3.1 g/dL (1.7-4.1); Glucose 99 mg/dL (80-110); HEMOLYSIS < 15 (0-50); Potassium 3.7 mmol/L (3.4-5.1); Sodium 139 mmol/L (137-145); Total Protein 6.6 g/dL (6.3-8.2)
[2018-03-22 11:00] VITALS: BP 134/71; PULSE 70; O2SAT 96
[2018-03-22 11:09] LABS: Troponin I < 0.012 ng/mL (0.01-0.034)
[2018-03-22 12:00] VITALS: BP 151/110; PULSE 75; O2SAT 97
[2018-03-22 12:28] VITALS: BP 151/110; BP 154/87; PULSE 75; PULSE 90
--- NOTE | 2018-03-22 12:28 | PC.NURSE ---
by nursing center tutor jermaine wise
== END 2018-03-22 13:20 | disposition home or self-care (01) ==
PROVIDERS: Emergency Provider Emergency Medicine; PCP Family Medicine
DX: K62.5 Hemorrhage of anus and rectum (principal)
CPT/HCPCS: 36591; 80053; 82550; 84484; 85025; 85610; 85730; 86850; 86900; 86901; 93005; 93010; 96374; 96375; 99283; 99284; C9113; J2405

== ENCOUNTER → 2018-04-10 09:09 | Outpatient (CLI) | payer OTHER, SELFPAY ==
--- NOTE | 2018-04-10 09:13 | DI.US.S_ITS ---
PROCEDURE: US ABDOMEN COMPLETE INDICATIONS: persistent nausea, RUQ/epigastric abd pain TECHNIQUE: Real-time scanning was performed of the abdominal and retroperitoneal organs, with image documentation. COMPARISON: , US, RENAL COMPLETE, 10/11/2016, 13:27. FINDINGS: Liver: The liver is enlarged without visualized focal lesion. Gallbladder: Gallbladder is unremarkable. Wall thickness is within normal limits measuring 2.2 mm. Biliary ducts: Intrahepatic bile ducts are non-dilated. Extrahepatic bile duct caliber measures 4.8 mm. Normal is 6-7 mm or less in diameter, or 10 mm or less post-cholecystectomy. Pancreas: Visualized portions of the pancreas are sonographically normal. Spleen: Spleen is normal in size and homogeneous in echotexture. Kidneys: Kidneys are normal in size and echotexture. Right kidney measures 11.0 cm long; left kidney measures 9.9 cm long. No hydronephrosis or nephrolithiasis. No solid masses. Aorta: Visualized aorta is normal in caliber at less than 3 cm. Iliacs: Proximal common iliac arteries are normal in caliber at less than 2.5 cm. IVC: Intrahepatic inferior vena cava is patent. Miscellaneous: No free abdominal fluid. IMPRESSION: 1. Hepatomegaly without visualized focal lesion. 2. Gallbladder is unremarkable. Dictated by: Tere Camacho M.D. on 04/10/2018 at 10:56 Approved by: Tere Camacho M.D. on 04/10/2018 at 10:57
== END ==
PROVIDERS: PCP Family Medicine; Visit Provider Family Medicine
DX: R11.0 Nausea (principal); R10.11 Right upper quadrant pain; R16.0 Hepatomegaly, not elsewhere classified
CPT/HCPCS: 76700

== ENCOUNTER 2018-06-13 13:25 | Day surgery (SDC) | payer OTHER, SELFPAY ==
--- NOTE | 2018-06-13 | PATH_ITS ---
[facility] Accession Number: [id number] . 01 Material submitted: . colon - MIDRIGHT COLON POLYP . 02 Diagnosis: Mid Right Colon, Polyp, Biopsy: Multiple fragments of tubular adenoma. No evidence of malignancy or high-grade dysplasia. MRV/06/15/2018 . 02 Electronically signed: . Jessa Larose MD, Pathologist NPI- [id number] . 01 Gross description: . MIDRIGHT COLON POLYP: Received in formalin are multiple fragment(s) of chapa, soft tissue measuring 1.8 x 1.0 x 0.5 cm in aggregate submitted entirely in 1 cassette(s) /CKI /CKI . 02 Pathologist provided ICD-10: D12.6 . 02 CPT . 098738 Performed at: 01 [facility] [address] [id number] MD Yariel Houston MD Phone: [phone] Performed at: 02 [facility] [place] [address] [place], [place] [id number] MD Jessa Larose MD Phone: [phone]
[2018-06-13] MEDS: SODIUM CHLORIDE 0.9% 1,000 ML 100 ML IV (13:48)
[2018-06-13 13:50] VITALS: BP 131/73; PULSE 76; RESP 20; TEMP 37.2; O2SAT 96; BMI 41.1
--- NOTE | 2018-06-13 15:36 | PM.PREOP ---
Pre-operative Note Interval Note History & Physical reviewed/Exam performed by Physician: Yes Changes to H&P: No ASA Class (for procedural sedation): II
[2018-06-13 16:25] VITALS: BP 111/42; PULSE 77; RESP 16; TEMP 36.8; O2SAT 97
[2018-06-13 16:29] VITALS: BP 119/56; PULSE 72; RESP 21; O2SAT 97
[2018-06-13 16:35] VITALS: PULSE 74; RESP 17; O2SAT 97
[2018-06-13 16:36] VITALS: BP 122/57
--- NOTE | 2018-06-13 16:48 | PM.OP.1 ---
Operative Date/Time/Diagnoses Date of procedure: 06/13/18 Time of procedure: 16:49 Post-op diagnosis: same Procedure & Clinicians Procedure: Colonoscopy to the cecum with polypectomy Same procedure as scheduled: Yes Indications: Rectal bleeding Surgeon: Melissa Cast Anesthesia Type: Sedation (Fentanyl and Versed) Operative Notes Findings: 1. Adequate prep 2. Two to 2-1/2 cm polyp in the mid to proximal ascending colon. Removed approximately 90% of the polyp with snare and cautery and retained most of it for pathology. The site was marked with Zaina ink 3. Tortuous, lax, and elongated colon 4. Grade 2 internal hemorrhoids without stigmata of recent bleeding 5. Diverticulosis limited to the sigmoid region with primarily small scattered pockets Closure Type: not applicable Specimen(s): other (Polyp from the mid ascending colon) Estimated Blood Loss (mL): 1 Procedure in detail: After obtaining informed consent, the patient was brought to the GI suite and placed in the left lateral decubitus position on the examination table. After placement of appropriate monitors, the patient was given incremental doses of Versed and Fentanyl until an appropriate level of sedation was achieved. A time out was held per SCOAP protocol. A digital rectal examination was performed and did not reveal any masses or obstructing lesions. The colonoscope was gently passed into the patient's anus and the entire colon navigated to the level of the cecum with significant difficulty due to colon laxity and tortuosity.. Once in the cecum, the scope was withdrawn being sure to go before and beyond all mucosal folds and prominences and get an excellent examination. Upon pulling the scope back, we noted a large semi pedunculated polyp in the proximal to mid ascending colon. This was removed in 3 pieces with snare and cautery and retained for pathology using a combination of Sommer net, tripod device, and graspers. The remaining bed of the polyp was so thin that it was felt not safe to proceed for the last few fragments. The area was tattooed with Zaina ink for later surveillance. Other findings are noted above. At the level of the rectal vault, the scope was retroflexed and the internal anal canal was examined. The scope was straightened and air aspirated from the colon. The instrument was removed from the patient's body and the procedure was concluded. The patient was allowed to awaken from sedation without difficulty and taken to the post-anesthesia care unit in good condition. Total sedation time was 36 minutes Total withdrawal time was 21 minutes Complications: none Condition: stable Disposition: PACU Plan for aftercare: 1. Discharge to home 2. Await pathology results for final recommendations 3. Assuming benign pathology, plan for repeat colonoscopy in 3 months
[2018-06-13 16:56] VITALS: BP 127/68; PULSE 71; RESP 12; TEMP 37.2; O2SAT 98
[2018-06-13 18:09] LABS: Adenovirus F 40/41 Not Detected (Not Detect); Astrovirus Not Detected (Not Detect); Campylobacter Not Detected (Not Detect); Clostridium difficile toxin AB Not Detected (Not Detect); Cryptosporidium Not Detected (Not Detect); Cyclospora cayetanensis Not Detected (Not Detect); Entamoeba histolytica Not Detected (Not Detect); Enteroaggregative E.coli Not Detected (Not Detect); Enteropathogenic E.coli Not Detected (Not Detect); Enterotoxigenic E.coli It/st Not Detected (Not Detect); Giardia lamblia Not Detected (Not Detect); Norovirus GI/GII Not Detected (Not Detect); Plesiomonsa shigelloides Not Detected (Not Detect); Rotavirus A Not Detected (Not Detect); Salmonella Not Detected (Not Detect); Sapovirus Not Detected (Not Detect); Shiga-like toxin-prod E.coli Not Detected (Not Detect); Shigella/Enteroinvasive E.coli Not Detected (Not Detect); Vibrio Not Detected (Not Detect); Vibrio cholerae Not Detected (Not Detect); Yersinia enterocolitica Not Detected (Not Detect)
== END 2018-06-13 17:04 | disposition home or self-care (01) ==
PROVIDERS: PCP Family Medicine; Visit Provider Surgery
PROC: 0DJD8ZZ Inspection of Lower Intestinal Tract, Via Natural or Artificial Opening Endoscopic (ICD-10-PCS; CPT 45378; principal; 2018-06-13 16:00)
DX: K62.5 Hemorrhage of anus and rectum (principal); I48.91 Unspecified atrial fibrillation; Z79.01 Long term (current) use of anticoagulants; F32.9 Major depressive disorder, single episode, unspecified; E03.9 Hypothyroidism, unspecified; G47.30 Sleep apnea, unspecified; I34.0 Nonrheumatic mitral (valve) insufficiency; K64.1 Second degree hemorrhoids; K57.30 Diverticulosis of large intestine without perforation or abscess without bleeding; D12.2 Benign neoplasm of ascending colon
CPT/HCPCS: 45381; 45385; 87507; 99152; 99153

== ENCOUNTER 2018-09-28 06:42 | Day surgery (SDC) | payer OTHER, SELFPAY ==
[2018-09-28] VITALS (12 sets, daily range): BP systolic 115–154; BP diastolic 54–80; PULSE 64–70; RESP 11–16; TEMP 35.8–36.6; O2SAT 96–99; BMI 39.8
--- NOTE | 2018-09-28 | PATH_ITS ---
[facility] Accession Number: [id number] . 01 Material submitted: . colon - TRANSVERSE COLON POLYP . 01 Clinical history: . COLONOSCOPY . 02 Diagnosis: Biopsy, Transverse Colon Polyp: Tubular adenoma. MRV/09/29/2018 . 02 Electronically signed: . Anoop Shepherd MD, Pathologist NPI- [id number] . 01 Gross description: . TRANSVERSE COLON POLYP: Received in formalin is 1 fragment(s) of chapa, soft tissue measuring 0.2 x 0.2 x 0.2 cm which is entirely submitted and submitted entirely in 1 cassette(s) /DMC /DMC . 02 Pathologist provided ICD-10: D12.3 . 02 CPT . 624080 Performed at: 01 [facility] [address] [id number] MD Yariel Houston MD Phone: [phone] Performed at: 02 [facility] [place] [address] [place], [place] [id number] MD Jessa Larose MD Phone: [phone]
[2018-09-28] MEDS: SODIUM CHLORIDE 0.9% 1,000 ML 200 ML IV (07:27)
--- NOTE | 2018-09-28 07:54 | PM.HP.1 ---
History of Present Illness Date Patient Seen: 09/28/18 Time Patient Seen: 07:35 Chief complaint: [id number] COLONOSCOPY Narrative: PT seen and examined unchanged since recent clinic note reattempt un resectable polypectomy Patient History Family & Social History Social History: household members family lives independently Yes caregiver/support person No Tobacco & Substance use: Smoking Status Former smoker alcohol intake never Meds Home Medications Medication Instructions Recorded Confirmed Type tamoxifen 20 mg tablet 20 mg PO DAILY 09/26/17 09/28/18 History atorvastatin [Lipitor] 20 mg PO BEDTIME 03/22/18 09/28/18 History diltiazem HCl 300 mg PO QPM 03/22/18 09/28/18 History flecainide 100 mg PO Q12H 03/22/18 09/28/18 History metronidazole 1 applic TOPICAL BEDTIME PRN 03/22/18 09/28/18 History warfarin 5 mg PO MOTUWETHFRSA 03/22/18 09/28/18 History warfarin [Jantoven] 7.5 mg PO FARRELL 03/22/18 09/14/18 History levothyroxine 137 mcg tablet 137 mcg PO DAILY #90 tab 05/01/18 09/28/18 Rx ResMed AirSense 10 CPAP #1 ea 05/29/18 09/14/18 History cholecalciferol (vitamin D3) 2,000 unit PO DAILY 09/28/18 09/28/18 History [Vitamin D3] Allergies Allergy/AdvReac Type Severity Reaction Status Date / Time nickel [NICKEL] Allergy Mild RASH Verified 09/28/18 07:12 Exam Vital Signs (past 8 hours): - 09/28/18 07:16 Temperature 97.9 F Pulse Rate 70 Respiratory Rate 15 Blood Pressure 117/67 Pulse Oximetry 97 Oxygen Delivery Method Room Air
[2018-09-28] MEDS: GLUCAGON,HUMAN RECOMBINANT 1 MG/ML VIAL IV (08:24)
--- NOTE | 2018-09-28 09:16 | SUR.OPER ---
changed positioning several times from side to back to stomach to other side, used stiffening wire and eventually ran out of scope but did not reach the cecum.
[2018-09-28] MEDS: fentaNYL 250 MCG/5 ML INJ IV (09:19)
[2018-09-28] MEDS: MIDAZOLAM 5 MG/5 ML VIAL IV (09:23)
--- NOTE | 2018-09-28 09:35 | P.OP.ENDO_ITS ---
Operative Date/Time/Diagnoses Date of procedure: 09/28/18 Time of procedure: 09:26 Pre-op diagnosis: incompletely resected right colon polyp Procedure & Clinicians Study performed: Diagnostic colonoscopy -incomplete Same procedure as scheduled: Yes Indications: 68-year-old female presents 3 months status post most recent colonoscopy which identified a large sessile polyp in the right colon. With multiple snare attempts majority of the polyp was removed approximately 90% however due to the a thin wall status post resection the decision was made to stop this and to complete the resection at a later time. Pathology ultimately demonstrated a tubular adenoma without malignancy. Patient recovered well she returned to clinic her warfarin anticoagulation was stopped for 7 days and she re-presented for repeat colonoscopy for attempted resection. Of note the area of the right colon with the incompletely resected polyp had been tattooed Surgeon: Brendon Leone Procedure Notes SCOAP/Timeout: Completed Procedure in detail: Patient was brought to the endoscopy suite time-out was completed. She was initially sedated with the small dose of fentanyl and midazolam. Of note during the course of her procedure she was exquisitely sensitive to the colonoscope manipulation and over the entire course of the procedure required a total of 350 mcg of fentanyl and 14 mg of midazolam. Despite these large amounts she was not clearly comfortable during much of the case. 160 cm colonoscope was advanced through the folds of the rectum and colon -of note she had a little long floppy colon with multiple tight turn. This proximal progression fairly slow. Numerous times a scope had to be withdrawn and readvanced reduced multiple loops. Abdominal pressure was applied multiple occasions. To advanced the scope the patient was placed in the supplying, prone, right and left decubitus positions at different times during the advancement of the scope. I was successful in advancing the scope as far as the hepatic flexure -but ran out of scope length multiple times at this juncture. This was despite multiple attempts to back out scope in readvance as well as utilization of the scope stiffener. Ultimately the entire scope was withdrawn - a small sessile lesion was identified at the mid transverse colon this was removed with cold biopsy forcep. A pediatric scope was advanced to assist with navigation through the tight turns -this was 160 cm and similarly there was none of scope length at the vicinity of the hepatic flexure. This was slowly withdrawn no additional lesions were identified Scope withdrawal time: na Sedation minutes: 80 Specimen(s): other (Polyp mid transverse colon) Complications: none Impression: Diverticula by of the sigmoid and transverse colons A transverse polyp status post cold biopsy resection Long tortuous highly redundant colon Recommendations: Other recommendation (Follow-up with advanced endoscopy) Plan for aftercare: Referral to advanced endoscopy Follow up: weeks Disposition: PACU
== END 2018-09-28 11:21 | disposition home or self-care (01) ==
PROVIDERS: PCP Family Medicine; Visit Provider Surgery
PROC: 0DJD8ZZ Inspection of Lower Intestinal Tract, Via Natural or Artificial Opening Endoscopic (ICD-10-PCS; CPT 45378; principal; 2018-09-28 07:45)
DX: Z86.010 Personal history of colon polyps (principal); Z79.01 Long term (current) use of anticoagulants; D12.3 Benign neoplasm of transverse colon
CPT/HCPCS: 45380; 99152; 99153; J1610; J2250; J3010

== ENCOUNTER → 2019-01-02 08:26 | Outpatient (CLI) | payer OTHER, SELFPAY ==
[2019-01-02 09:01] LABS: Add Manual Diff / Slide Review NO; Basophils Absolute Auto 0 /uL (0-100); Basophils Percent Auto 0.6 % (0-2); Eosinophils Absolute Auto 200 /uL (0-450); Eosinophils Percent Auto 2.6 % (2-4); Hematocrit 34.9 % (36-46); Hemoglobin 12.2 g/dL (12.0-16.0); Lymphocytes Absolute Auto 1300 /uL (1100-4500); Lymphocytes Percent Auto 22.1 % (25-40); Mean Corpuscular HGB Conc 34.9 % (30-36); Mean Corpuscular Hemoglobin 30.8 PG (26-34); Mean Corpuscular Volume 88.4 fL (80-100); Monocytes Absolute Auto 400 /uL (0-900); Monocytes Percent Auto 6.5 % (3-14); Neutrophils Absolute Auto 4000 /uL (1500-7000); Neutrophils Percent Auto 68.2 % (50-75); Platelet Count 222 X10^3/uL (150-400); Red Blood Cell Count 3.94 X10^6/uL (4.0-5.2); Red Cell Distribution Width 13.9 % (11.6-14.8); White Blood Cell Count 5.9 X10^3/uL (4.5-11.0)
[2019-01-02 09:13] LABS: Alanine Aminotransferase 15 IU/L (9-52); Albumin 3.7 g/dL (3.5-5.0); Albumin Globulin Ratio 1.1 (1.0-2.8); Alkaline Phosphatase 64 U/L (38-126); Aspartate Aminotransferase 19 IU/L (14-36); BUN Creatinine Ratio 14.7 (6-22); Bilirubin Total 0.4 mg/dL (0.2-1.3); Blood Urea Nitrogen 22 mg/dL (7-17); Calcium 8.9 mg/dL (8.4-10.2); Carbon Dioxide 28 mmol/L (22-32); Chloride 104 mmol/L (98-107); Estimated Glomerular Filt Rate 34.3 mL/min (>60); Globulin 3.3 g/dL (1.7-4.1); Glucose 104 mg/dL (80-110); HEMOLYSIS < 15 (0-50); Potassium 4.1 mmol/L (3.4-5.1); Sodium 138 mmol/L (137-145)
[2019-01-02 09:58] LABS: Thyroid Stimulating Hormone 2.87 uIU/mL (0.47-4.68)
== END ==
PROVIDERS: Internal Medicine Hematology & Oncology; Family Provider Family Medicine; PCP Family Medicine; Visit Provider Family Medicine
DX: E03.9 Hypothyroidism, unspecified (principal); C50.912 Malignant neoplasm of unspecified site of left female breast
CPT/HCPCS: 36415; 80053; 84443; 85025

== ENCOUNTER → 2019-01-10 11:02 | Outpatient (CLI) | payer OTHER, SELFPAY ==
--- NOTE | 2019-01-10 11:04 | DI.MG.S_ITS ---
BILATERAL DIGITAL SCREENING MAMMOGRAM 3D/2D WITH CAD POST LUMPECTOMY: 01/10/2019 CLINICAL: Routine screening. Personal history of left breast cancer. Family history of breast cancer. Comparison is made to exams dated: 01/09/2018 mammogram, 12/14/2016 mammogram, and 02/03/2016 [facility]. There are scattered fibroglandular elements in both breasts. Current study was also evaluated with a Computer Aided Detection (CAD) system. There are benign calcifications in both breasts. There also are benign post operative findings in the left breast. No significant masses, calcifications, or other findings are seen in either breast. There has been no significant interval change. IMPRESSION: There is no mammographic evidence of malignancy. A 1 year screening mammogram is recommended. This exam was interpreted at Station ID: [id number]. NOTE: For mammograms, a report in lay terms will be sent to the patient. Approximately 15% of breast malignancies will not be visualized mammographically. In the management of a palpable breast mass, a negative mammogram must not discourage biopsy of a clinically suspicious lesion. Electronically Signed By: Avi meyer/vivian:01/10/2019 13:30:19 letter sent: Normal Exam ACR BI-RADS Category 2: Benign Finding(s) 3342F
== END ==
PROVIDERS: Family Provider Family Medicine; PCP Family Medicine; Visit Provider Internal Medicine Hematology & Oncology
DX: Z12.31 Encounter for screening mammogram for malignant neoplasm of breast (principal); Z80.3 Family history of malignant neoplasm of breast; Z85.3 Personal history of malignant neoplasm of breast
CPT/HCPCS: 77063; 77067

== ENCOUNTER 2019-04-29 00:19 | Inpatient (IN) | payer OTHER, SELFPAY ==
[2019-04-29] VITALS (12 sets, daily range): BP systolic 86–171; BP diastolic 46–92; PULSE 73–98; RESP 12–25; TEMP 35.9–38.1; O2SAT 92–98; BMI 40.2
[2019-04-29 00:38] LABS: Add Manual Diff / Slide Review NO; Basophils Absolute Auto 100 /uL (0-100); Basophils Percent Auto 0.8 % (0-2); Eosinophils Absolute Auto 200 /uL (0-450); Eosinophils Percent Auto 1.1 % (2-4); Hemoglobin 12.6 g/dL (12.0-16.0); Lymphocytes Absolute Auto 3900 /uL (1100-4500); Lymphocytes Percent Auto 26.4 % (25-40); Mean Corpuscular HGB Conc 33.9 % (30-36); Mean Corpuscular Volume 88.4 fL (80-100); Monocytes Absolute Auto 500 /uL (0-900); Monocytes Percent Auto 3.6 % (3-14); Neutrophils Absolute Auto 10200 /uL (1500-7000); Neutrophils Percent Auto 68.1 % (50-75); Platelet Count 254 X10^3/uL (150-400); Red Blood Cell Count 4.19 X10^6/uL (4.0-5.2); Red Cell Distribution Width 14.5 % (11.6-14.8)
[2019-04-29 00:42] LABS: Alanine Aminotransferase 17 IU/L (<35); Albumin 3.9 g/dL (3.5-5.0); Albumin Globulin Ratio 1.1 (1.0-2.8); Alkaline Phosphatase 93 U/L (38-126); Aspartate Aminotransferase 23 IU/L (14-36); BUN Creatinine Ratio 12.3 (6-22); Bilirubin Total 0.4 mg/dL (0.2-1.3); Blood Urea Nitrogen 27 mg/dL (7-17); Calcium 9.6 mg/dL (8.4-10.2); Carbon Dioxide 24 mmol/L (22-32); Chloride 106 mmol/L (98-107); Creatine Kinase 111 U/L (30-135); Globulin 3.5 g/dL (1.7-4.1); Glucose 176 mg/dL (80-110); HEMOLYSIS < 15 (0-50); Potassium 3.5 mmol/L (3.4-5.1); Sodium 140 mmol/L (137-145); Total Protein 7.4 g/dL (6.3-8.2)
[2019-04-29 00:53] LABS: PTT Partial Thromboplastin Tim 26 SECONDS (26.4-36.2)
[2019-04-29 00:54] LABS: Troponin I < 0.012 ng/mL (0.01-0.034)
--- NOTE | 2019-04-29 00:55 | PC.NURSE ---
bright red blood present in stool when up to bedside commode. Provider Rebel chopra.
[2019-04-29 00:57] LABS: CKMB % Relative Index 0.8 % (1.5-5.0); Creatine Kinase MB 0.86 ng/mL (<2.37)
[2019-04-29] MEDS: SODIUM CHLORIDE 0.9% 1,000 ML 2000 ML IV (01:05)
[2019-04-29] MEDS: PANTOPRAZOLE 40 MG VIAL IV (01:05)
--- NOTE | 2019-04-29 01:20 | PC.NURSE ---
patient reports sudden onset of lower abd pain, cramping. Patient reports she knew she was going to pass out so she sat down but was unable to get up for some time approx 1 hr. pt orthostatic hypotension per EMS.
[2019-04-29] MEDS: PANTOPRAZOLE 80 MG in SODIUM CHLORIDE 0.9% 100 ML 10 ML IV ×3 (01:58→20:40)
--- NOTE | 2019-04-29 02:05 | ED.GENADULT ---
HPI - General Adult General Chief complaint: Syncope Stated complaint: Near Syncope Time Seen by Provider: 04/29/19 00:31 Source: EMS Mode of arrival: EMS History of Present Illness HPI narrative: 69-year-old woman with near-syncope after developing acute diarrhea. Apparently she has a history of recurring episodes of diarrhea associated with cramping and near syncope. Most recent colonoscopy was September 28, 2017 that showed 1 polyp and diverticulosis. With the 1st episode of stool this evening she is not sure what it looked like. She has another episode of moderate volume stool in the emergency department that appears to be melena. She states that she is not having any vomiting but she has been mildly nauseated. She will get diaphoretic as she is having more stomach cramps just prior to having another loose stool. Related Data Home Medications Medication Instructions Recorded Confirmed diltiazem HCl 300 mg PO QPM 03/22/18 11/28/18 flecainide 100 mg PO Q12H 03/22/18 11/28/18 metronidazole 1 applic TOPICAL BEDTIME PRN 03/22/18 11/28/18 ResMed AirSense 10 CPAP #1 ea 05/29/18 11/28/18 cholecalciferol (vitamin D3) 2,000 unit PO DAILY 09/28/18 11/28/18 [Vitamin D3] lisinopril 5 mg PO DAILY 02/05/19 02/05/19 Previous Rx's Medication Instructions Recorded atorvastatin 20 mg tablet See Rx Instructions .ROUTE 11/14/18 .COMPLEX #90 tablet levothyroxine 137 mcg tablet See Rx Instructions .ROUTE 02/09/19 .COMPLEX #90 tablet tamoxifen 20 mg PO DAILY #90 tab 02/26/19 warfarin 5 mg tablet 5 mg PO DAILY #45 tab 03/30/19 Allergies Allergy/AdvReac Type Severity Reaction Status Date / Time nickel [NICKEL] Allergy Mild RASH Verified 04/29/19 00:27 Review of Systems Review of Systems Narrative: Denies ? fever ? cough ? cold ? chest pain ? dyspnea ? orthopnea ? wheezing ? abdominal pain ? change to bowel or bladder habits ? nausea vomiting ? skin changes ? rashes Patient History Medical History Ankle pain (Resolved 2015) Atrial fibrillation (Chronic) Chicken pox (Resolved ~1962) Depression (Chronic 1997) Dyspepsia (Chronic) Foot pain (Resolved 2015) Hypothyroidism (Chronic 1997) Menopause (Chronic) Mitral regurgitation (Chronic 05/2014) Morbid obesity with body mass index (BMI) of 40.0 to 49.9 (Chronic) Mumps (Resolved ~195) Obstructive sleep apnea (Chronic ~10/27/09) Rosacea (Chronic 2015) Surgical History Anesthesia (Resolved) History of bilateral salpingo-oophorectomy (BSO) (Resolved 11/26/16) History of cardiac radiofrequency ablation (RFA) (Resolved 01/2015) History of knee replacement (Resolved 10/04/08) Status post tubal ligation (Resolved 1979) Family History Brother Tachycardia Hyperlipidemia Alzheimer's dementia Bladder cancer Father CAD (coronary artery disease) Mother Age: 91 Hypothyroidism DDD (degenerative disc disease) Dementia Grandfather Heart disease Grandmother Heart disease Grandfather No problems noted. Grandmother No problems noted. Social History marital status: household members: family lives independently: Yes caregiver/support person: No housing: house Smoking Status: Former smoker second hand exposure: No alcohol intake: never substance use type: does not use Smoking Status: Former smoker Exam Narrative Exam Narrative: General: Healthy appearing, Well-nourished well-developed HEENT: Moist mucous membranes, normal sclera with reactive pupils, Neck: No JVD, supple Respiratory: Lungs are clear to auscultation, no wheezing no rales no rhonchi. Full and symmetrical air movement Cardiac: Regular rate and rhythm no murmurs no bruits Abdomen: Soft nontender, hyperactive bowel tones, no flank pain Skin: Pale and dry, no rashes Neurologic: Grossly neurologically intact with no obvious asymmetries or abnormalities Extremities: No trauma, well perfused Psych: Cooperative, appropriate insight and affect Initial Vital Signs Initial Vital Signs: Vital Signs Temperature 96.6 F L 04/29/19 00:24 Pulse Rate 73 04/29/19 00:24 Respiratory Rate 12 04/29/19 00:24 Blood Pressure 134/60 04/29/19 00:24 Pulse Oximetry 98 04/29/19 00:24 Course Orders Ordered: ED Orders 04/29/19 00:15 Type and Screen Stat 04/29/19 00:20 Complete Blood Count AUTO DIFF Stat Comprehensive Metabolic Panel Stat Partial Thromboplastin Time Stat Prothrombin Time INR Stat Troponin & CK Cardiac Panel Stat 04/29/19 00:45 EKG-12 Lead Stat 04/29/19 05:41 Hemoglobin and Hematocrit Stat Pantoprazole Sodium 80 mg/ (Sodium Chloride) 100 mls @ 10 mls/hr IV CONT QUINTEN Last Admin: 04/29/19 01:58 Dose: 8 mg/hr, 10 mls/hr Documented by: NICHO Sodium Chloride (Normal Saline 0.9%) 1,000 mls @ 150 mls/hr IV CONT QUINTEN Sodium Chloride (Normal Saline 0.9%) 1,000 mls @ 1,000 mls/hr IV BOLUS ONE Stop: 04/29/19 03:50 Last Admin: 04/29/19 02:53 Dose: 1,000 mls/hr Documented by: NICHO Discontinued Medications Sodium Chloride (Normal Saline 0.9%) 1,000 mls @ 2,000 mls/hr IV BOLUS ONE Stop: 04/29/19 01:00 Last Infusion: 04/29/19 02:52 Dose: 0 mls/hr Documented by: Admin: 04/29/19 01:05 Dose: 2,000 mls/hr Documented by: VERONICA Ondansetron HCl (Zofran) 4 mg IV NOW ONE Stop: 04/29/19 00:43 Pantoprazole Sodium (Protonix) 40 mg IV NOW ONE Stop: 04/29/19 00:43 Last Admin: 04/29/19 01:05 Dose: 40 mg Documented by: VERONICA Phytonadione (Mephyton) 5 mg PO NOW ONE Stop: 04/29/19 03:39 Last Admin: 04/29/19 03:44 Dose: 5 mg Documented by: Vital Signs Vital signs: Vital Signs - 8 hr 04/29/19 00:24 04/29/19 00:31 04/29/19 01:19 Temperature 96.6 F L Pulse Rate 73 Respiratory Rate 12 Blood Pressure 134/60 Blood Pressure [Orthostatic Sitting] 87/46 L Blood Pressure [Right Arm] 86/47 L Pulse Oximetry 98 Medical Decision Making Lab Data Lab results reviewed: Yes I reviewed the patient's lab results. Result diagrams: 04/29/19 00:20 04/29/19 00:20 Labs: Lab Results 04/29/19 04/29/19 04/29/19 Range/Units 00:15 00:20 00:20 WBC 15.0 H (4.5-11.0) X10^3/uL RBC 4.19 (4.0-5.2) X10^6/uL Hgb 12.6 (12.0-16.0) g/dL Hct 37.0 (36-46) % MCV 88.4 (80-100) fL MCH 30.0 (26-34) PG MCHC 33.9 (30-36) % RDW 14.5 (11.6-14.8) % Plt Count 254 (150-400) X10^3/uL Neut % (Auto) 68.1 (50-75) % Lymph % (Auto) 26.4 (25-40) % [place] % (Auto) 3.6 (3-14) % Eos % (Auto) 1.1 L (2-4) % Baso % (Auto) 0.8 (0-2) % Neut # (Auto) 77624 H (2347-3935) /uL Lymph # (Auto) 3900 (6826-5345) /uL [place] # (Auto) 500 (0-900) /uL Eos # (Auto) 200 (0-450) /uL Baso # (Auto) 100 (0-100) /uL PT (10.1-12.7) SECONDS INR (0.9-1.3) APTT (26.4-36.2) SECONDS Sodium 140 (137-145) mmol/L Potassium 3.5 (3.4-5.1) mmol/L Chloride 106 (98-107) mmol/L Carbon Dioxide 24 (22-32) mmol/L BUN 27 H (7-17) mg/dL Creatinine 2.20 H (0.52-1.04) mg/dL Estimated GFR 22.0 L (>60) mL/min BUN/Creatinine Ratio 12.3 (6-22) Glucose 176 H (80-110) mg/dL Calcium 9.6 (8.4-10.2) mg/dL Total Bilirubin 0.4 (0.2-1.3) mg/dL AST 23 (14-36) IU/L ALT 17 (<35) IU/L Alkaline Phosphatase 93 (38-126) U/L Total Creatine Kinase 111 (30-135) U/L CK-MB (CK-2) 0.86 (<2.37) ng/mL CK-MB (CK-2) Rel Index 0.8 L (1.5-5.0) % Troponin I < 0.012 (0.01-0.034) ng/mL Total Protein 7.4 (6.3-8.2) g/dL Albumin 3.9 (3.5-5.0) g/dL Globulin 3.5 (1.7-4.1) g/dL Albumin/Globulin Ratio 1.1 (1.0-2.8) Blood Type O Positive Antibody Screen Negative 04/29/19 Range/Units 00:20 WBC (4.5-11.0) X10^3/uL RBC (4.0-5.2) X10^6/uL Hgb (12.0-16.0) g/dL Hct (36-46) % MCV (80-100) fL MCH (26-34) PG MCHC (30-36) % RDW (11.6-14.8) % Plt Count (150-400) X10^3/uL Neut % (Auto) (50-75) % Lymph % (Auto) (25-40) % [place] % (Auto) (3-14) % Eos % (Auto) (2-4) % Baso % (Auto) (0-2) % Neut # (Auto) (3645-0010) /uL Lymph # (Auto) (7960-7186) /uL [place] # (Auto) (0-900) /uL Eos # (Auto) (0-450) /uL Baso # (Auto) (0-100) /uL PT 23.0 H (10.1-12.7) SECONDS INR 2.0 H (0.9-1.3) APTT 26 L D (26.4-36.2) SECONDS Sodium (137-145) mmol/L Potassium (3.4-5.1) mmol/L Chloride (98-107) mmol/L Carbon Dioxide (22-32) mmol/L BUN (7-17) mg/dL Creatinine (0.52-1.04) mg/dL Estimated GFR (>60) mL/min BUN/Creatinine Ratio (6-22) Glucose (80-110) mg/dL Calcium (8.4-10.2) mg/dL Total Bilirubin (0.2-1.3) mg/dL AST (14-36) IU/L ALT (<35) IU/L Alkaline Phosphatase (38-126) U/L Total Creatine Kinase (30-135) U/L CK-MB (CK-2) (<2.37) ng/mL CK-MB (CK-2) Rel Index (1.5-5.0) % Troponin I (0.01-0.034) ng/mL Total Protein (6.3-8.2) g/dL Albumin (3.5-5.0) g/dL Globulin (1.7-4.1) g/dL Albumin/Globulin Ratio (1.0-2.8) Blood Type Antibody Screen Initial H&H suggests dehydration without initial anemia. INR is 2.0. Chemistries show significant worsening renal function with a change from 1.5 up to 2.2 for creatinine. ECG Data Attestation: I personally reviewed and interpreted this ECG as follows: Interpretation: Ventricular rate of 71. Normal sinus rhythm. Moderate intraventricular conduction delay. No ischemic changes normal axis MDM Narrative Medical decision making narrative: Presents with what she initially thought it was simply significant diarrhea with abdominal cramping. He rests breast turns out to be GI bleeding with melanotic stool. Initial H and H are unremarkable however renal function is worsening. Will continue hydration, plan on rechecking another H&H. Will continue Protonix drip anticipate admission with surgery/GI consultation tomorrow Fluid resuscitation is continuing as she is orthostatic. Will also give her 5 mg of oral vitamin K to try and correct the INR of 2 Care is reviewed with Dr. Blood, the admitting physician. With initial H&H of 12.6 and 37, 2 L of normal saline is infused. She is still mildly orthostatic but improving nicely. Another H&H will be obtained after the 2 L of fluid and after a number of episodes of recurrent melena here in the emergency department. She is no longer tachycardic. Blood has been typed and crossed. She is safe for admission to the hospital at this time. Discharge Plan Departure Patient Disposition: Admitted As Inpatient Clinical Impression: Anticoagulated on warfarin, Acute GI bleeding Referrals: Lily Belcher MD [Primary Care Provider] - Admit Date/Time: 04/29/19 03:41 Admit Provider: Esteban Blood
--- NOTE | 2019-04-29 02:07 | PC.NURSE ---
patient experienced another bloody stool. Gross blood present in commode. provider notified.
[2019-04-29] MEDS: SODIUM CHLORIDE 0.9% 1,000 ML 1000 ML IV (02:53)
[2019-04-29] MEDS: PHYTONADIONE (VIT K1) 5 MG TABLET PO (03:44)
[2019-04-29] MEDS: SODIUM CHLORIDE 0.9% 1,000 ML 150 ML IV ×3 (03:54→17:59)
[2019-04-29] MEDS: ONDANSETRON 4 MG/2 ML INJ IV (04:20)
--- NOTE | 2019-04-29 05:42 | PC.NURSE ---
Pt. admitted from ER, arrived via stretcher then use the BSC prior to transferring to hospital bed. Pt. voided and also passed a small amt. of bright red blood mixed in with urine. Pt. denies feeling dizzy, is c/o 5/10 constant abdominal cramping since ER stay, no c/o nausea or vomiting. VSS, HR per tele is sinus rhythm without ectopy. Settled in bed, instructed to use call light if needed anything and never get OOB without assistance callie. that she came in with c/o near syncopal episode. IVF is NS at 150 ml/hr still ER order as well as Pantoprazole at 8mg/hr both infusing at right AC. Pt. provided a warm blanket over her abdomen for cramping and a couple warm blankets for c/o feeling cold.
[2019-04-29 05:56] LABS: Hematocrit 35.9 % (36-46); Hemoglobin 11.8 g/dL (12.0-16.0)
--- NOTE | 2019-04-29 10:17 | P.HP_ITS ---
History of Present Illness History of Present Illness Date Patient Seen: 04/29/19 Time Patient Seen: 10:17 Chief complaint: Near Syncope Narrative: GI bleed. Patient mid early this morning through the emergency room for GI bleed. Patient is basically well yesterday during the day last night she began have abdominal cramps of some loose stools about 10:00 a.m.. She thinks it may been some but at that time. This morning she was having difficulty ambulating and felt like she was going to pass out daughter who was unable to lift her up so a horticultural nursery assistant was called. Evaluation by paramedics as well as emergency room found her to be have orthostatic ABS vital signs reviewed responding to fluid resuscitation successfully so. Report from the emergency room doctor was out there was stool there that appeared from her perspective be ?melena?. Patient denies having had black stools in the past or recently unclear whether not she has has not. She has not taken any anti-inflammatories. She does take warfarin for her atrial fibrillation. He has had intermittent GI issues in the past. Underwent colonoscopy twice last year by the surgeons here on hospital. Apparently was difficult unable to complete. Apparently was referred to remote encoding operations supervisor at yet to be determined as that has not been completed. Patient does have a history of a document diverticulosis. She polyp was done this past summer that showed tubular adenoma. Other medical problems and includes atrial fibrillation she has undergone cardioversion and ablation. She is in sinus rhythm. But she apparently is on warfarin ?forever?. She is unaware of a when she goes atrial fibrillation hands prophylaxis. 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 Has history of breast cancer status post lumpectomy and lymph node dissection. Underwent radiation and is ?cancer-free?. She is on tamoxifen for same for another couple years per Other medical problems include hypertension and hyperlipidemia, hypothyroidism. Has sleep apnea and uses CPAP machine Patient History Medical History Ankle pain (Resolved 2015) Atrial fibrillation (Chronic) Chicken pox (Resolved ~1962) Depression (Chronic 1997) Dyspepsia (Chronic) Foot pain (Resolved 2015) Hypothyroidism (Chronic 1997) Menopause (Chronic) Mitral regurgitation (Chronic 05/2014) Morbid obesity with body mass index (BMI) of 40.0 to 49.9 (Chronic) Mumps (Resolved ~1957) Obstructive sleep apnea (Chronic ~10/27/09) Rosacea (Chronic 2016) Surgical History Anesthesia (Resolved) History of bilateral salpingo-oophorectomy (BSO) (Resolved 11/26/16) History of cardiac radiofrequency ablation (RFA) (Resolved 01/2015) History of knee replacement (Resolved 10/04/08) Status post tubal ligation (Resolved 1979) Family & Social History Family History Brother Tachycardia Hyperlipidemia Alzheimer's dementia Bladder cancer Father CAD (coronary artery disease) Mother Age: 91 Hypothyroidism DDD (degenerative disc disease) Dementia Grandfather Heart disease Grandmother Heart disease Grandfather No problems noted. Grandmother No problems noted. Social History: household members family Prior Living Arrangements House lives independently Yes caregiver/support person No Safety & Behavioral: Feels Safe in Current Yes Environment Been Physically Hurt or No Threatened By a Person Suicidal Ideation Description None Suicide Plan Description No Plan Tobacco & Substance use: Smoking Status Former smoker Smoking packs per day 1 alcohol intake never Substance Use Type does not use Meds Home Medications and Allergies Home Medications Medication Instructions Recorded Confirmed Type diltiazem HCl 300 mg PO QPM 03/22/18 04/29/19 History flecainide 100 mg PO Q12H 03/22/18 04/29/19 History metronidazole 1 applic TOPICAL BEDTIME PRN 03/22/18 04/29/19 History ResMed AirSense 10 CPAP #1 ea 05/29/18 04/29/19 History cholecalciferol (vitamin D3) 2,000 unit PO DAILY 09/28/18 04/29/19 History [Vitamin D3] lisinopril 5 mg PO DAILY 02/05/19 04/29/19 History levothyroxine 137 mcg tablet See Rx Instructions .ROUTE 02/09/19 04/29/19 Rx .COMPLEX #90 tablet tamoxifen 20 mg PO DAILY #90 tab 02/26/19 04/29/19 Rx warfarin 5 mg tablet 5 mg PO DAILY #45 tab 03/30/19 04/29/19 Rx atorvastatin 20 mg PO QPM 04/29/19 04/29/19 History Allergies Allergy/AdvReac Type Severity Reaction Status Date / Time nickel [NICKEL] Allergy Mild RASH Verified 04/29/19 00:27 Review of Systems Review of Systems ROS: Yes All systems reviewed with the patient and are negative except as otherwise documented Exam Vital Signs (past 8 hours): - 04/29/19 04:32 04/29/19 05:20 04/29/19 06:03 Temperature 97.0 F L Pulse Rate 78 86 80 Respiratory Rate 15 21 19 Blood Pressure 139/92 H 147/75 H Blood Pressure [Right Arm] 141/65 H Pulse Oximetry 94 98 95 04/29/19 07:05 04/29/19 08:00 04/29/19 09:00 Temperature 97.2 F L Pulse Rate 82 86 Respiratory Rate 16 25 H Blood Pressure 140/66 140/73 142/76 H Blood Pressure [Right Arm] Pulse Oximetry 97 97 Oxygen Delivery Method Room Air Oxygen Flow Rate 0 Narrative Exam Narrative: Gen.: [] Patient is examined in her hospital bed resting quietly and she appears in no distress she does complain of some lower abdominal discomfort Skin: [Warm well perfused. No prominent lesions. Nonicteric]. HEENT: PERRL., [normal EOM, external ears canals TMs normal, nasal mucosa normal and midline septum, oropharynx without lesions.] Neck: [Trachea midline. Thyroid nontender and not enlarged. Carotids without bruits. No lymphadenopathy] Back: [No obvious deformity or tenderness]. Chest: [Clear to P&A. Symmetric]. CV: [RRR no murmur or gallop. No JVD]. Abdomen: [No masses bruits tenderness or visceromegaly]. Neuro: [Cranial nerves II through XII grossly intact. Sensory and motor exams intact. Gait normal.] Mental status: [Intact for screening] Extremities: [No cyanosis clubbing or edema] Musculoskeletal: [No gross deformities] Lymphatics: [Negative for lymphadenopathy, supraclavicular axillary or inguinal] Abdominal exam is totally benign. Objective Labs Result Diagrams: 04/29/19 05:43 04/29/19 00:20 Labs: Laboratory Results - last 24 hr 04/29/19 04/29/19 04/29/19 00:15 00:20 00:20 WBC 15.0 H RBC 4.19 Hgb 12.6 Hct 37.0 MCV 88.4 MCH 30.0 MCHC 33.9 RDW 14.5 Plt Count 254 Neut % (Auto) 68.1 Lymph % (Auto) 26.4 [place] % (Auto) 3.6 Eos % (Auto) 1.1 L Baso % (Auto) 0.8 Neut # (Auto) 88466 H Lymph # (Auto) 3900 [place] # (Auto) 500 Eos # (Auto) 200 Baso # (Auto) 100 PT INR APTT Sodium 140 Potassium 3.5 Chloride 106 Carbon Dioxide 24 BUN 27 H Creatinine 2.20 H Estimated GFR 22.0 L BUN/Creatinine Ratio 12.3 Glucose 176 H Calcium 9.6 Total Bilirubin 0.4 AST 23 ALT 17 Alkaline Phosphatase 93 Total Creatine Kinase 111 CK-MB (CK-2) 0.86 CK-MB (CK-2) Rel Index 0.8 L Troponin I < 0.012 Total Protein 7.4 Albumin 3.9 Globulin 3.5 Albumin/Globulin Ratio 1.1 Nasal Screen MRSA (PCR) Blood Type O Positive Antibody Screen Negative 04/29/19 04/29/19 04/29/19 00:20 05:10 05:43 WBC RBC Hgb 11.8 L Hct 35.9 L MCV MCH MCHC RDW Plt Count Neut % (Auto) Lymph % (Auto) [place] % (Auto) Eos % (Auto) Baso % (Auto) Neut # (Auto) Lymph # (Auto) [place] # (Auto) Eos # (Auto) Baso # (Auto) PT 23.0 H INR 2.0 H APTT 26 L D Sodium Potassium Chloride Carbon Dioxide BUN Creatinine Estimated GFR BUN/Creatinine Ratio Glucose Calcium Total Bilirubin AST ALT Alkaline Phosphatase Total Creatine Kinase CK-MB (CK-2) CK-MB (CK-2) Rel Index Troponin I Total Protein Albumin Globulin Albumin/Globulin Ratio Nasal Screen MRSA (PCR) Negative for mrsa Blood Type Antibody Screen Labs reviewed as above. Of significance hemoglobin is stable. INR is noted. Perhaps of more significance is a deterioration of her renal function creatinine is 2.2 the worse has been as far as I can tell. Patient received vitamin K in the emergency room Assessment & Plan Assessment & Plan narrative: 1. GI bleed. Clearly has lower GI bleed. Presumably from her diverticulosis. Questionable whether not she had melena and upper GI bleed. Yet to be determined. Have discussed same with Dr. Bell general surgeon automobiles salesperson who will be seeing her later on today to determine whether not she needs any further scoping unlikely that should need any colonoscopy. Question becomes whether not she needs EGD. 2. Chronic recurrent abdominal pain it sounds more like irritable bowel. She has had issues with abdominal pain for multiple years. Will try her on antispasmodics see if that helps. 3. Chronic kidney disease stage 3 creatinine worsened has been. Some of this may be related to dehydration and to the GI bleed. Will withhold her lisinopril for the time being. Sees ships or barges loader for same. 4. Atrial fibrillation now in sinus rhythm. On suppression as well as anticoagulation indefinitely. Sees Dr. Sterling for same. 5. Anticoagulation to be withheld for the time being. 6. History of breast cancer that apparently is in remission. Patient being followed by Oncology for same. 7. Pre-existing hypothyroidism presume stable. 8. Pre-existing hyperlipidemia presumed stable. 9. Pre-existing hypertension stable. 10. Pre-existing rosacea being treated with metronidazole stable. Patient medically stable at this time. Anticipate at least 2 midnight stay further is investigating forthcoming. Dr. Lily Belcher, her primary care physician will be seeing her in the morning to assume care Quality VTE Deep Vein Thrombosis/Pulmonary Embolism Present on Admission: Yes
[2019-04-29] MEDS: DICYCLOMINE 10 MG CAPSULE PO ×2 (10:46→14:04)
[2019-04-29 10:47] LABS: Add Manual Diff / Slide Review NO; Basophils Absolute Auto 300 /uL (0-100); Basophils Percent Auto 2.3 % (0-2); Eosinophils Absolute Auto 0 /uL (0-450); Eosinophils Percent Auto 0.1 % (2-4); Hemoglobin 12.1 g/dL (12.0-16.0); Lymphocytes Absolute Auto 600 /uL (1100-4500); Mean Corpuscular HGB Conc 33.6 % (30-36); Mean Corpuscular Hemoglobin 29.6 PG (26-34); Monocytes Absolute Auto 200 /uL (0-900); Neutrophils Absolute Auto 10300 /uL (1500-7000); Neutrophils Percent Auto 90.6 % (50-75); Platelet Count 205 X10^3/uL (150-400); Red Blood Cell Count 4.09 X10^6/uL (4.0-5.2); Red Cell Distribution Width 14.4 % (11.6-14.8); White Blood Cell Count 11.4 X10^3/uL (4.5-11.0)
[2019-04-29] MEDS: FLECAINIDE 100 MG TABLET PO ×2 (10:47→20:41)
[2019-04-29 10:54] LABS: BUN Creatinine Ratio 15.6 (6-22); Blood Urea Nitrogen 25 mg/dL (7-17); Calcium 8.6 mg/dL (8.4-10.2); Carbon Dioxide 19 mmol/L (22-32); Chloride 113 mmol/L (98-107); Estimated Glomerular Filt Rate 31.8 mL/min (>60); Glucose 121 mg/dL (80-110); HEMOLYSIS 49 (0-50); Potassium 4.6 mmol/L (3.4-5.1); Sodium 140 mmol/L (137-145)
--- NOTE | 2019-04-29 14:06 | DI.CT.S_ITS ---
PROCEDURE: CT ABDOMEN PELVIS WO CON INDICATIONS: suprapubic and llq pain r/o diverticulitis TECHNIQUE: After the administration of oral contrast, 5 mm thick sections acquired from the diaphragms to the symphysis. 5 mm coronal and sagittal reformats were performed. For radiation dose reduction, the following was used: automated exposure control, adjustment of mA and/or kV according to patient size. COMPARISON: [facility], CT, PE STUDY (CTA CHEST), 05/09/2014, 15:20. [facility], CT, THORAX WITHOUT CONTRAST, 03/03/2015, 10:18. [place], PET NECK TO MID THIGH STD, 02/06/2016, 13:34. FINDINGS: Image quality: Excellent. ABDOMEN: Lung bases: There is a 1.3 x 2.1 cm spiculated groundglass density in the right lower lobe. This was present on the priors PET/CT dated 02/06/2016 and appears slightly enlarged (previously 0.8 x 1.5 cm). Heart size is normal. There is a small hiatal hernia. Solid organs: Liver is normal in size. Gallbladder is normal. Pancreas is normal in size. Spleen is normal in size. No adrenal nodules. Both kidneys are normal in size, without hydronephrosis or nephrolithiasis. Peritoneum and bowel: There is diffuse colonic wall thickening and pericolonic stranding consistent with colitis. Scattered colonic diverticula are present. Bowel loops demonstrate normal caliber. Normal appendix. No free air. There is a small amount of free fluid. Nodes and vessels: No retroperitoneal or mesenteric adenopathy by size criteria. Aorta and inferior vena cava are normal in size. Miscellaneous: No ventral hernias. PELVIS: Genitourinary: Bladder wall thickness is normal. Miscellaneous: No inguinal hernias or adenopathy. Bones: No suspicious bony lesions. No vertebral body compression fractures. IMPRESSION: 1. Diffuse colonic wall thickening with pericolonic stranding consistent with colitis. Potential etiologies include infectious colitis, inflammatory bowel disease and ischemia. 2. There are scattered colonic diverticula. No CT findings to suggest acute diverticulitis. 3. A small amount of free fluid in the abdomen and pelvis. 4. A 1.3 x 2.1 cm groundglass density in the right lower lobe, which appears slightly enlarged since 02/06/2016. This could be a inflammatory nodule or low-grade malignancy such as adenocarcinoma in situ. A followup PET CT may be indicated. Dictated by: Ivan Barrow M.D. on 04/29/2019 at 17:16 Approved by: Ivan Barrow M.D. on 04/29/2019 at 17:24
--- NOTE | 2019-04-29 14:12 | P.CONS_ITS ---
History of Present Illness Consult details Date Patient Seen: 04/29/19 Time Patient Seen: 14:12 Chief complaint: Near Syncope Reason for consult: GI bleed Requesting provider: Esteban Blood Narrative: The patient is a woman who is been having intermittent GI bleeding. She had a colonoscopy by Dr. Cast over year ago and a repeat exam performed/attempted less than 1 year ago in September. That repeat was unsuccessful in viewing the area of abnormality in her ascending colon which was the desired effect of the colonoscopy. She was actually referred to GI but never made that follow-up call to make an appointment. She presents now with crampy suprapubic and left lower quadrant pain very similar to episodes in the past. It was not until she arrived here that she began to pass blood. She has abdomen she did not pass of black stool was just dark red. The patient is chronically anticoagulated due to atrial fibrillation. She also suffers from chronic renal failure with a creatinine of 1.6 Meds Home Medications and Allergies Home Medications Medication Instructions Recorded Confirmed Type diltiazem HCl 300 mg PO QPM 03/22/18 04/29/19 History flecainide 100 mg PO Q12H 03/22/18 04/29/19 History metronidazole 1 applic TOPICAL BEDTIME PRN 03/22/18 04/29/19 History ResMed AirSense 10 CPAP #1 ea 05/29/18 04/29/19 History cholecalciferol (vitamin D3) 2,000 unit PO DAILY 09/28/18 04/29/19 History [Vitamin D3] lisinopril 5 mg PO DAILY 02/05/19 04/29/19 History levothyroxine 137 mcg tablet See Rx Instructions .ROUTE 02/09/19 04/29/19 Rx .COMPLEX #90 tablet tamoxifen 20 mg PO DAILY #90 tab 02/26/19 04/29/19 Rx warfarin 5 mg tablet 5 mg PO DAILY #45 tab 03/30/19 04/29/19 Rx atorvastatin 20 mg PO QPM 04/29/19 04/29/19 History Allergies Allergy/AdvReac Type Severity Reaction Status Date / Time nickel [NICKEL] Allergy Mild RASH Verified 04/29/19 00:27 Review of Systems Review of Systems Narrative: Patient denies cough cold. No chest pain she is hypertensive and is on antiarrhythmic so because of her AFib. No blood in her urine. No seizures. No blackouts though she does get dizzy when she is having these episodes of bleeding Exam Vital Signs (past 8 hours): - 04/29/19 07:05 04/29/19 08:00 04/29/19 09:00 Temperature 97.2 F L Pulse Rate 82 86 Respiratory Rate 16 25 H Blood Pressure 140/66 140/73 142/76 H Pulse Oximetry 97 97 04/29/19 13:21 Temperature 98.2 F Pulse Rate 98 H Respiratory Rate 21 Blood Pressure 148/82 H Pulse Oximetry 92 Oxygen Delivery Method Room Air Oxygen Flow Rate 0 Narrative Exam Narrative: Very pleasant woman who is morbidly obese no apparent distress eyes nonicteric pupils equal round reactive to light conjunctiva were pink ears without lesion nasal septum midline oral mucosa is pink moist no open lesions. Lungs are clear to auscultation without rales or rhonchi heart regular rate and rhythm without murmur gallop abdomen is protuberant soft nontender. No masses. Objective Labs Result Diagrams: 04/29/19 10:25 04/29/19 10:25 Labs: Laboratory Results - last 24 hr 04/29/19 04/29/19 04/29/19 00:15 00:20 00:20 WBC 15.0 H RBC 4.19 Hgb 12.6 Hct 37.0 MCV 88.4 MCH 30.0 MCHC 33.9 RDW 14.5 Plt Count 254 Neut % (Auto) 68.1 Lymph % (Auto) 26.4 [place] % (Auto) 3.6 Eos % (Auto) 1.1 L Baso % (Auto) 0.8 Neut # (Auto) 57303 H Lymph # (Auto) 3900 [place] # (Auto) 500 Eos # (Auto) 200 Baso # (Auto) 100 PT INR APTT Sodium 140 Potassium 3.5 Chloride 106 Carbon Dioxide 24 BUN 27 H Creatinine 2.20 H Estimated GFR 22.0 L BUN/Creatinine Ratio 12.3 Glucose 176 H Calcium 9.6 Total Bilirubin 0.4 AST 23 ALT 17 Alkaline Phosphatase 93 Total Creatine Kinase 111 CK-MB (CK-2) 0.86 CK-MB (CK-2) Rel Index 0.8 L Troponin I < 0.012 Total Protein 7.4 Albumin 3.9 Globulin 3.5 Albumin/Globulin Ratio 1.1 Nasal Screen MRSA (PCR) Blood Type O Positive Antibody Screen Negative 02/04/29/19 04/29/19 00:20 05:10 05:43 WBC RBC Hgb 11.8 L Hct 35.9 L MCV MCH MCHC RDW Plt Count Neut % (Auto) Lymph % (Auto) [place] % (Auto) Eos % (Auto) Baso % (Auto) Neut # (Auto) Lymph # (Auto) [place] # (Auto) Eos # (Auto) Baso # (Auto) PT 23.0 H INR 2.0 H APTT 26 L D Sodium Potassium Chloride Carbon Dioxide BUN Creatinine Estimated GFR BUN/Creatinine Ratio Glucose Calcium Total Bilirubin AST ALT Alkaline Phosphatase Total Creatine Kinase CK-MB (CK-2) CK-MB (CK-2) Rel Index Troponin I Total Protein Albumin Globulin Albumin/Globulin Ratio Nasal Screen MRSA (PCR) Negative for mrsa Blood Type Antibody Screen 04/29/19 04/29/19 10:25 10:25 WBC 11.4 H RBC 4.09 Hgb 12.1 Hct 36.0 MCV 88.0 MCH 29.6 MCHC 33.6 RDW 14.4 Plt Count 205 Neut % (Auto) 90.6 H D Lymph % (Auto) 5.0 L D [place] % (Auto) 2.0 L Eos % (Auto) 0.1 L Baso % (Auto) 2.3 H Neut # (Auto) 24093 H Lymph # (Auto) 600 L [place] # (Auto) 200 Eos # (Auto) 0 Baso # (Auto) 300 H PT INR APTT Sodium 140 Potassium 4.6 Chloride 113 H Carbon Dioxide 19 L BUN 25 H Creatinine 1.60 H Estimated GFR 31.8 L BUN/Creatinine Ratio 15.6 Glucose 121 H Calcium 8.6 Total Bilirubin AST ALT Alkaline Phosphatase Total Creatine Kinase CK-MB (CK-2) CK-MB (CK-2) Rel Index Troponin I Total Protein Albumin Globulin Albumin/Globulin Ratio Nasal Screen MRSA (PCR) Blood Type Antibody Screen Assessment & Plan Assessment & Plan narrative: Well in the room as patient had to go to the bathroom she passed large maroon-colored stool. I orders CT scan of the abdomen and pelvis to make sure she does not have diverticulitis as her presenting complaint was actually pain not passage of blood which started later. She will probably require repeat colonoscopy. This would have to be done under general anesthesia. I would not do it at this time that is prep her today but probably tomorrow once she stop bleeding.
--- NOTE | 2019-04-29 14:42 | PC.NURSE ---
Pt has been up to BSC several times today passing bright red blood. Pt c/o intermittent cramping. First dose of bentyl was effective and pt was noted to be sleeping after administration. A few hours later, pt awoke with cramping pain 5/10. Called to Dr. Blood and rec'd call back and orders for add'l bentyl and zofran. After obtaining meds, pt was noted to back asleep. Will continue to monitor and administer as needed.
--- NOTE | 2019-04-29 15:45 | CM.DANOTE ---
Addendum entered by Delfina Lawson LPN 04/29/19 15:55: Payer: [facility] Admission status: INPT: confirmed by UR JCARLOS Castillo. Original Note: Discharge Planning/Care Management DCP: assessment: case received, EMR reviewed and met very briefly with pt and one of her daughters, at bedside. Introduced self and role. Pt was in process of getting ready to go to be taken off unit for further testing. Pt is a 69 year old female who admitted early this morning to care off A physician team. PCP: Dr. Belcher Consulting: Dr. Bell: plan is for him to take pt for colonoscopy tomorrow if she had stopped bleeding. Pt admitted with abdominal pain and then guaiac + stools and these have continued throughout the day. Pt is on Warfarin at baseline. P: follow as POC unfolds to assist with any d/c needs that may arise. CM Discharge Assessment Start: 04/29/19 15:43 Freq: Status: Active Protocol: Document 04/29/19 15:44 ITV (Rec: 04/29/19 15:45 ITV [id number]) Discharge Planning Assessment Advance Directives? Yes Advance Directives on File Yes History Provided By Patient,Family Member,Medical Record Prior Living Arrangements House Household Members family Is patient alert and oriented? Yes Whiteboard Updated in Patient Room with Yes name and ext. # of Transit Police Officer Review Status In Process
[2019-04-29] MEDS: dilTIAZem CD 180 MG CAP PO (18:07)
[2019-04-29] MEDS: dilTIAZem CD 120 MG CAP PO (18:07)
[2019-04-29] MEDS: ATORVASTATIN 20 MG TABLET PO (18:07)
[2019-04-29] MEDS: ACETAMINOPHEN 325 MG TABLET 650 MG PO (18:08)
[2019-04-29] MEDS: PIPERACILLIN-TAZO 3.375 GM/50 ML FROZ.PIGGY IV (21:46)
--- NOTE | 2019-04-29 22:13 | PC.NURSE ---
2044 - Dr. Bell notified of CT results, elevated temp 100.6. Amount and consistency of stool. Orders obtained. Dr. Blood notified as well, per Dr. Bell request. Pt educated to treatment plan. Supportive daughter at bedside. Pt calm and cooperative. Call light in reach.
[2019-04-30] VITALS: BP 130/62; PULSE 74; RESP 15; TEMP 36.9; O2SAT 96
[2019-04-30] MEDS: SODIUM CHLORIDE 0.9% 1,000 ML 150 ML IV ×2 (00:43→07:40)
--- NOTE | 2019-04-30 02:22 | PC.NURSE ---
Addendum entered by Tyesha Shahid R.N. 04/30/19 05:57: Pt has been up to use the BSC 2 times this shift with on stool but has continues to have bleeding from the rectum noted with use of the BSC and a small amount in her brief. Pt denies pain and reports only having a few episodes of cramping during the night. Original Note: NOC Note: Pt denies pain and cramping. Pt denies nausea. C-pap in use per her home routine. BT are hyperactive. Pt has not had a BM so far this shift.
[2019-04-30 03:52] VITALS: BP 116/56; PULSE 72; RESP 15; TEMP 36.1; O2SAT 95
[2019-04-30] MEDS: PIPERACILLIN-TAZO 3.375 GM/50 ML FROZ.PIGGY IV ×4 (04:29→21:48)
[2019-04-30 05:20] LABS: Add Manual Diff / Slide Review NO; Basophils Absolute Auto 0 /uL (0-100); Basophils Percent Auto 0.4 % (0-2); Eosinophils Absolute Auto 100 /uL (0-450); Eosinophils Percent Auto 0.7 % (2-4); Hematocrit 31.8 % (36-46); Hemoglobin 10.8 g/dL (12.0-16.0); Lymphocytes Absolute Auto 1300 /uL (1100-4500); Lymphocytes Percent Auto 13.6 % (25-40); Mean Corpuscular HGB Conc 33.8 % (30-36); Mean Corpuscular Hemoglobin 30.1 PG (26-34); Monocytes Absolute Auto 500 /uL (0-900); Monocytes Percent Auto 5.7 % (3-14); Neutrophils Absolute Auto 7600 /uL (1500-7000); Neutrophils Percent Auto 79.6 % (50-75); Platelet Count 181 X10^3/uL (150-400); Red Blood Cell Count 3.58 X10^6/uL (4.0-5.2); Red Cell Distribution Width 14.2 % (11.6-14.8); White Blood Cell Count 9.5 X10^3/uL (4.5-11.0)
[2019-04-30 05:21] LABS: INR 1.4 (0.9-1.3); Prothrombin Time 16.1 SECONDS (10.1-12.7)
[2019-04-30 05:27] LABS: BUN Creatinine Ratio 11.3 (6-22); Blood Urea Nitrogen 17 mg/dL (7-17); Calcium 7.6 mg/dL (8.4-10.2); Carbon Dioxide 20 mmol/L (22-32); Chloride 113 mmol/L (98-107); Estimated Glomerular Filt Rate 34.2 mL/min (>60); Glucose 104 mg/dL (80-110); HEMOLYSIS < 15 (0-50); Potassium 3.7 mmol/L (3.4-5.1); Sodium 137 mmol/L (137-145)
[2019-04-30] MEDS: LEVOTHYROXINE 137 MCG TABLET PO (05:34)
[2019-04-30] MEDS: ACETAMINOPHEN 325 MG TABLET 650 MG PO ×3 (07:40→16:47)
[2019-04-30] MEDS: PANTOPRAZOLE 80 MG in SODIUM CHLORIDE 0.9% 100 ML 10 ML IV ×2 (07:40→18:13)
--- NOTE | 2019-04-30 07:41 | PM.PN.1 ---
Subjective Subjective Date Patient Seen: 04/30/19 Time Patient Seen: 08:00 Interval history: The pt reports that this morning she woke up with a very stiff neck. It is very uncomfortable for her to move. She believes that she slept on it wrong. She continues to have abdominal cramping, however it is significantly improved from before. She has passed blood rectally multiple times, no significant stool has passed however so they have not yet been able to collect a stool sample. The pt did have a temperature to 100.6F last night. She denies fevers before coming to the hospital, but does report that when she felt faint and lay down on the bathroom floor, the coolness felt good. Exam Vital Signs (past 8 hours): - 04/30/19 00:00 04/30/19 03:52 Temperature 98.5 F 97.0 F L Pulse Rate 74 72 Respiratory Rate 15 15 Blood Pressure 130/62 116/56 L Pulse Oximetry 96 95 Oxygen Delivery Method CPAP Oxygen Flow Rate 0 Narrative Exam Narrative: Gen: NAD, sitting comfortably in bed, appears well CV: RRR, no murmurs Resp: clear to auscultation bilaterally Abd: soft, nontender, nondistended, normoactive bowel sounds Ext: no edema Objective Labs Result Diagrams: 04/30/19 04:48 04/30/19 04:48 Labs: Laboratory Results - last 24 hr 04/29/19 04/29/19 04/30/19 10:25 10:25 04:48 WBC 11.4 H 9.5 RBC 4.09 3.58 L Hgb 12.1 10.8 L Hct 36.0 31.8 L MCV 88.0 89.0 MCH 29.6 30.1 MCHC 33.6 33.8 RDW 14.4 14.2 Plt Count 205 181 Neut % (Auto) 90.6 H D 79.6 H Lymph % (Auto) 5.0 L D 13.6 L [place] % (Auto) 2.0 L 5.7 Eos % (Auto) 0.1 L 0.7 L Baso % (Auto) 2.3 H 0.4 Neut # (Auto) 83092 H 7600 H Lymph # (Auto) 600 L 1300 [place] # (Auto) 200 500 Eos # (Auto) 0 100 Baso # (Auto) 300 H 0 PT INR Sodium 140 Potassium 4.6 Chloride 113 H Carbon Dioxide 19 L BUN 25 H Creatinine 1.60 H Estimated GFR 31.8 L BUN/Creatinine Ratio 15.6 Glucose 121 H Calcium 8.6 04/30/19 04/30/19 04:48 04:48 WBC RBC Hgb Hct MCV MCH MCHC RDW Plt Count Neut % (Auto) Lymph % (Auto) [place] % (Auto) Eos % (Auto) Baso % (Auto) Neut # (Auto) Lymph # (Auto) [place] # (Auto) Eos # (Auto) Baso # (Auto) PT 16.1 H D INR 1.4 H Sodium 137 Potassium 3.7 Chloride 113 H Carbon Dioxide 20 L BUN 17 Creatinine 1.50 H Estimated GFR 34.2 L BUN/Creatinine Ratio 11.3 Glucose 104 Calcium 7.6 L Assessment & Plan Assessment & Plan narrative: 69yo woman with CKD, atrial fibrillation on chronic anticoagulation, hypothyroidism, hypertension, hx of diverticulosis, and hx of breast cancer who presented with abdominal cramping and orthostatic hypotension, then passing bright red blood per rectum in the ER. Pt continues to have signs of lower GI bleed with bright red blood. CT of her abdomen showed likely colitis. 1) Acute lower GI bleed: With resultant acute blood loss anemia. Pt with fever overnight, most likely the result of colitis - more likely infectious vs ischemic. - Surgery consulted, appreciate ongoing care and recommendations - Continue Zosyn due to fever overnight - Stool studies pending - Repeat CBC this afternoon to ensure stability after drop overnight. - Continue clear diet - Continue Bentyl for cramping - Continue Pantoprazole - mIVF decreased to 100cc/hr due to pt tolerating clears - Zofran PRN for nausea 2) Hypertension, Atrial Fibrillation: Currently in sinus rhythm - Hold Coumadin due to bleeding - Continue home Diltiazem, Flecainide, Lisinopril, Atorvastatin 3) Hx of breast cancer: - Continue Tamoxifen 4) Hypothyroidism: Last TSH 12/2018 normal range - Continue Levothyroxine 5) Right lower lobe groundglass density: Reportedly increased in size slightly since 2016 - Dedicated CT chest to be completed today FEN: Clear diet Code: Full DVT prophylaxis: SCDs for now due to bleeding Dispo: Pending stablilization of GI bleeding, work-up completed as per surgery. Quality VTE Deep Vein Thrombosis/Pulmonary Embolism Present on Admission: Yes
[2019-04-30 08:00] VITALS: BP 152/71; PULSE 66; RESP 20; TEMP 37; O2SAT 95
[2019-04-30] MEDS: LIDOCAINE PATCH 1 EACH ADH..PATCH TOP ×2 (09:02→18:14)
[2019-04-30] MEDS: CHOLECALCIFEROL (VITAMIN D3) 1,000 UNIT TABLET 2000 UNIT PO (09:03)
[2019-04-30] MEDS: TAMOXIFEN 10 MG TABLET 20 MG PO (09:03)
[2019-04-30] MEDS: FLECAINIDE 100 MG TABLET PO ×2 (09:03→21:48)
[2019-04-30 12:00] VITALS: BP 133/72; PULSE 68; RESP 18; TEMP 36.8; O2SAT 96
--- NOTE | 2019-04-30 12:39 | DI.CT.S_ITS ---
PROCEDURE: CT CHEST WO CON INDICATIONS: right lower lobe ground glass opacity, full eval lungs TECHNIQUE: Noncontrast 5 mm thick sections acquired from the pulmonary apices to the posterior costophrenic angles. 1 mm lung window, 5 mm thick coronal and sagittal and 7 mm axial MIP reformats were then acquired. For radiation dose reduction, the following was used: automated exposure control, adjustment of mA and/or kV according to patient size. COMPARISON: [facility], [place], PET NECK TO MID THIGH STD, 02/06/2016, 13:34. [facility], CT, THORAX WITHOUT CONTRAST, 03/03/2015, 10:18. [facility], CT, CT ABDOMEN PELVIS WO CON, 04/29/2019, 15:59. FINDINGS: Image quality: Excellent. Lungs and pleura: Redemonstration of ill-defined right posterior pleural-based mixed attenuation partial groundglass opacity since yesterday. Elsewhere, no other discrete pulmonary nodules. No new focal consolidation. Scattered scarring/atelectasis. No pleural effusions or pneumothorax. Central and peripheral airways are patent and normal in caliber. Mediastinum: Heart size is normal. Scant coronary artery calcifications are present. No pericardial effusion. No mediastinal adenopathy by size criteria. Thoracic aorta and central pulmonary arteries are normal in size. Esophagus is normal in caliber. No hiatal hernia. Bones and chest wall: No suspicious bony lesions. No vertebral body compression fractures. No axillary or supraclavicular adenopathy by size criteria. Thyroid gland negative. Partially visualized colonic mural thickening, better seen on the comparison abdominal pelvis CT dated yesterday. IMPRESSION: No additional discrete pulmonary nodules. Redemonstration of right posterior ill-defined and partial groundglass opacity. As previously described this could be post-inflammatory/infectious although cannot exclude indolent neoplasm. As such, recommend continued long-term surveillance with chest CT or further evaluation with PET/CT as previously discussed Dictated by: Joaquín Hernandez M.D. on 04/30/2019 at 15:13 Approved by: Joaquín Hernandez M.D. on 04/30/2019 at 15:24
[2019-04-30 14:28] LABS: Hematocrit 33.7 % (36-46); Hemoglobin 11.3 g/dL (12.0-16.0); Mean Corpuscular HGB Conc 33.7 % (30-36); Mean Corpuscular Volume 89.1 fL (80-100); Platelet Count 185 X10^3/uL (150-400); Red Blood Cell Count 3.78 X10^6/uL (4.0-5.2); Red Cell Distribution Width 14.4 % (11.6-14.8)
[2019-04-30 16:26] VITALS: BP 152/81; PULSE 71; RESP 20; TEMP 36.7; O2SAT 98
[2019-04-30] MEDS: dilTIAZem CD 120 MG CAP PO (16:28)
[2019-04-30] MEDS: dilTIAZem CD 180 MG CAP PO (16:28)
[2019-04-30] MEDS: ATORVASTATIN 20 MG TABLET PO (16:28)
[2019-04-30] MEDS: SODIUM CHLORIDE 0.9% 1,000 ML 100 ML IV (18:23)
[2019-04-30 20:45] VITALS: BP 146/79; PULSE 72; RESP 20; TEMP 36.8; O2SAT 97
[2019-05-01 00:18] VITALS: BP 136/63; PULSE 68; RESP 16; TEMP 36.9; O2SAT 95
[2019-05-01 04:30] VITALS: BP 151/67; PULSE 73; RESP 16; TEMP 37.2; O2SAT 94
[2019-05-01] MEDS: PIPERACILLIN-TAZO 3.375 GM/50 ML FROZ.PIGGY IV ×2 (04:42→09:43)
[2019-05-01] MEDS: SODIUM CHLORIDE 0.9% 1,000 ML 100 ML IV ×3 (04:43→23:06)
[2019-05-01] MEDS: PANTOPRAZOLE 80 MG in SODIUM CHLORIDE 0.9% 100 ML 10 ML IV ×2 (05:03→13:33)
[2019-05-01 05:05] LABS: Add Manual Diff / Slide Review NO; Basophils Absolute Auto 0 /uL (0-100); Basophils Percent Auto 0.6 % (0-2); Eosinophils Absolute Auto 100 /uL (0-450); Eosinophils Percent Auto 1.8 % (2-4); Hematocrit 29.4 % (36-46); Lymphocytes Absolute Auto 1100 /uL (1100-4500); Lymphocytes Percent Auto 16.3 % (25-40); Mean Corpuscular HGB Conc 34.1 % (30-36); Mean Corpuscular Hemoglobin 30.4 PG (26-34); Mean Corpuscular Volume 89.2 fL (80-100); Monocytes Absolute Auto 400 /uL (0-900); Monocytes Percent Auto 5.7 % (3-14); Neutrophils Absolute Auto 5000 /uL (1500-7000); Neutrophils Percent Auto 75.6 % (50-75); Platelet Count 157 X10^3/uL (150-400); Red Blood Cell Count 3.29 X10^6/uL (4.0-5.2); Red Cell Distribution Width 14.3 % (11.6-14.8); White Blood Cell Count 6.6 X10^3/uL (4.5-11.0)
[2019-05-01 05:08] LABS: INR 1.3 (0.9-1.3); Prothrombin Time 14.5 SECONDS (10.1-12.7)
[2019-05-01 05:14] LABS: Blood Urea Nitrogen 12 mg/dL (7-17); Calcium 7.8 mg/dL (8.4-10.2); Carbon Dioxide 19 mmol/L (22-32); Chloride 114 mmol/L (98-107); Estimated Glomerular Filt Rate 34.2 mL/min (>60); Glucose 90 mg/dL (80-110); HEMOLYSIS < 15 (0-50); Potassium 3.4 mmol/L (3.4-5.1); Sodium 140 mmol/L (137-145)
[2019-05-01] MEDS: LEVOTHYROXINE 137 MCG TABLET PO (06:44)
[2019-05-01 08:06] VITALS: BP 144/68; PULSE 70; RESP 18; TEMP 37.7; O2SAT 96
[2019-05-01] MEDS: LIDOCAINE PATCH 1 EACH ADH..PATCH TOP (08:35)
[2019-05-01] MEDS: ONDANSETRON 4 MG/2 ML INJ IV (08:35)
[2019-05-01] MEDS: DICYCLOMINE 10 MG CAPSULE 20 MG PO (08:36)
[2019-05-01] MEDS: CHOLECALCIFEROL (VITAMIN D3) 1,000 UNIT TABLET 2000 UNIT PO (08:36)
[2019-05-01] MEDS: FLECAINIDE 100 MG TABLET PO ×2 (08:37→21:49)
[2019-05-01] MEDS: TAMOXIFEN 10 MG TABLET 20 MG PO (08:37)
[2019-05-01] MEDS: ACETAMINOPHEN 325 MG TABLET 650 MG PO (08:43)
[2019-05-01 12:18] VITALS: BP 135/64; PULSE 64; RESP 17; TEMP 36.8; O2SAT 98
[2019-05-01 12:59] LABS: Adenovirus F 40/41 Not Detected (Not Detect); Astrovirus Not Detected (Not Detect); Campylobacter Not Detected (Not Detect); Clostridium difficile toxin AB Not Detected (Not Detect); Cryptosporidium Not Detected (Not Detect); Cyclospora cayetanensis Not Detected (Not Detect); Entamoeba histolytica Not Detected (Not Detect); Enteroaggregative E.coli Not Detected (Not Detect); Enteropathogenic E.coli Not Detected (Not Detect); Enterotoxigenic E.coli It/st Not Detected (Not Detect); Giardia lamblia Not Detected (Not Detect); Norovirus GI/GII Not Detected (Not Detect); Plesiomonsa shigelloides Not Detected (Not Detect); Rotavirus A Not Detected (Not Detect); Salmonella Not Detected (Not Detect); Sapovirus Not Detected (Not Detect); Shiga-like toxin-prod E.coli Not Detected (Not Detect); Shigella/Enteroinvasive E.coli Not Detected (Not Detect); Vibrio Not Detected (Not Detect); Vibrio cholerae Not Detected (Not Detect); Yersinia enterocolitica Not Detected (Not Detect)
--- NOTE | 2019-05-01 13:37 | P.PN_ITS ---
Subjective Subjective Date Patient Seen: 05/01/19 Time Patient Seen: 08:00 Interval history: The pt reports that her neck stiffness is minimally improved. Her abdominal cramping is still present, but more mild overall. She has passed liquid stool without any blood in it overnight. Exam Vital Signs (past 8 hours): - 05/01/19 08:06 05/01/19 12:18 Temperature 99.8 F H 98.2 F Pulse Rate 70 64 Respiratory Rate 18 17 Blood Pressure 144/68 H 135/64 Pulse Oximetry 96 98 Oxygen Delivery Method Room Air Oxygen Flow Rate 0 Narrative Exam Narrative: Gen: NAD, sitting comfortably in bed, appears well CV: RRR, no murmurs Resp: clear to auscultation bilaterally Abd: soft, nontender, nondistended, normoactive bowel sounds Ext: no edema Objective Labs Result Diagrams: 05/01/19 04:41 05/01/19 04:41 Labs: Laboratory Results - last 24 hr 04/30/19 05/01/19 05/01/19 14:20 04:41 04:41 WBC 11.0 6.6 RBC 3.78 L 3.29 L Hgb 11.3 L 10.0 L Hct 33.7 L 29.4 L MCV 89.1 89.2 MCH 30.0 30.4 MCHC 33.7 34.1 RDW 14.4 14.3 Plt Count 185 157 Neut % (Auto) 75.6 H Lymph % (Auto) 16.3 L [place] % (Auto) 5.7 Eos % (Auto) 1.8 L Baso % (Auto) 0.6 Neut # (Auto) 5000 Lymph # (Auto) 1100 [place] # (Auto) 400 Eos # (Auto) 100 Baso # (Auto) 0 PT 14.5 H INR 1.3 Sodium Potassium Chloride Carbon Dioxide BUN Creatinine Estimated GFR BUN/Creatinine Ratio Glucose Calcium Stl C. cayetanensis PCR Stool Rotavirus (PCR) Stool Adenovirus (PCR) Stool Astrovirus (PCR) Stool Cryptosporidium PCR Stl E.coli Shiga Tox PCR St Sh/Enteroin Ecoli PCR Stool E coli O157 PCR Stl Enterotoxigenic E PCR Stool EPEC (PCR) Stl E. histolytica PCR Stool Giardia Lamblia PCR Stool Sapovirus (PCR) Stl P. shigelloides PCR St Y.enterocolitica PCR Stool Vibrio (PCR) Stl Vibrio cholerae PCR Stl Enteroaggr Ecoli PCR Stl Norovirus GI/GII PCR Campylobacter (PCR) C. difficile Tox (PCR) Salmonella (PCR) 05/01/19 05/01/19 04:41 09:40 WBC RBC Hgb Hct MCV MCH MCHC RDW Plt Count Neut % (Auto) Lymph % (Auto) [place] % (Auto) Eos % (Auto) Baso % (Auto) Neut # (Auto) Lymph # (Auto) [place] # (Auto) Eos # (Auto) Baso # (Auto) PT INR Sodium 140 Potassium 3.4 Chloride 114 H Carbon Dioxide 19 L BUN 12 Creatinine 1.50 H Estimated GFR 34.2 L BUN/Creatinine Ratio 8.0 Glucose 90 Calcium 7.8 L Stl C. cayetanensis PCR Not detected Stool Rotavirus (PCR) Not detected Stool Adenovirus (PCR) Not detected Stool Astrovirus (PCR) Not detected Stool Cryptosporidium PCR Not detected Stl E.coli Shiga Tox PCR Not detected St Sh/Enteroin Ecoli PCR Not detected Stool E coli O157 PCR Not detected Stl Enterotoxigenic E PCR Not detected Stool EPEC (PCR) Not detected Stl E. histolytica PCR Not detected Stool Giardia Lamblia PCR Not detected Stool Sapovirus (PCR) Not detected Stl P. shigelloides PCR Not detected St Y.enterocolitica PCR Not detected Stool Vibrio (PCR) Not detected Stl Vibrio cholerae PCR Not detected Stl Enteroaggr Ecoli PCR Not detected Stl Norovirus GI/GII PCR Not detected Campylobacter (PCR) Not detected C. difficile Tox (PCR) Not detected Salmonella (PCR) Not detected Assessment & Plan Assessment & Plan narrative: 69yo woman with CKD, atrial fibrillation on chronic anticoagulation, hypothyroidism, hypertension, hx of diverticulosis, and hx of breast cancer who presented with abdominal cramping and orthostatic hypotension, then passing bright red blood per rectum in the ER. CT of her abdomen showed likely colitis. 1) Acute lower GI bleed: With resultant acute blood loss anemia. Pt with single fever after admission. Most likely the result of colitis - more likely infectious vs ischemic. H/H remains stable. Bleeding now stopped. Stool PCR negative. - Surgery consulted, appreciate ongoing care and recommendations - Continue Zosyn - Continue clear diet - Continue Bentyl for cramping - Continue Pantoprazole - mIVF at 100cc/hr due to pt tolerating clears - Zofran PRN for nausea 2) Hypertension, Atrial Fibrillation: Currently in sinus rhythm - Hold Coumadin due to bleeding - Continue home Diltiazem, Flecainide, Lisinopril, Atorvastatin 3) Hx of breast cancer: - Continue Tamoxifen 4) Hypothyroidism: Last TSH 12/2018 normal range - Continue Levothyroxine 5) Right lower lobe groundglass density: Reportedly increased in size slightly since 2016. Dedicated chest CT showing no additional areas of concern. Will plan for surveillance as an outpatient. FEN: Clear diet Code: Full DVT prophylaxis: SCDs for now due to bleeding Dispo: Pending work-up completed as per surgery, advancing of diet. Quality VTE Deep Vein Thrombosis/Pulmonary Embolism Present on Admission: Yes
[2019-05-01 16:13] VITALS: BP 138/61; PULSE 67; RESP 17; TEMP 36.8; O2SAT 99
[2019-05-01] MEDS: ATORVASTATIN 20 MG TABLET PO (17:38)
[2019-05-01] MEDS: dilTIAZem CD 180 MG CAP PO (17:39)
[2019-05-01] MEDS: dilTIAZem CD 120 MG CAP PO (17:39)
--- NOTE | 2019-05-01 19:04 | PM.PN.1 ---
Subjective Subjective Date Patient Seen: 05/01/19 Time Patient Seen: 17:04 Interval history: The patient appears to stop bleeding. She feels better though she still having some crampy discomfort at times. Exam Vital Signs (past 8 hours): - 05/01/19 12:18 05/01/19 16:13 Temperature 98.2 F 98.3 F Pulse Rate 64 67 Respiratory Rate 17 17 Blood Pressure 135/64 138/61 Pulse Oximetry 98 99 Oxygen Delivery Method Room Air Oxygen Flow Rate 0 Narrative Exam Narrative: Abdomen is soft no unusual tenderness at this time. No guarding. Lungs are clear to auscultation without rales or rhonchi. Objective Labs Result Diagrams: 05/01/19 04:41 05/01/19 04:41 Labs: Laboratory Results - last 24 hr 05/01/19 05/01/19 05/01/19 04:41 04:41 04:41 WBC 6.6 RBC 3.29 L Hgb 10.0 L Hct 29.4 L MCV 89.2 MCH 30.4 MCHC 34.1 RDW 14.3 Plt Count 157 Neut % (Auto) 75.6 H Lymph % (Auto) 16.3 L [place] % (Auto) 5.7 Eos % (Auto) 1.8 L Baso % (Auto) 0.6 Neut # (Auto) 5000 Lymph # (Auto) 1100 [place] # (Auto) 400 Eos # (Auto) 100 Baso # (Auto) 0 PT 14.5 H INR 1.3 Sodium 140 Potassium 3.4 Chloride 114 H Carbon Dioxide 19 L BUN 12 Creatinine 1.50 H Estimated GFR 34.2 L BUN/Creatinine Ratio 8.0 Glucose 90 Calcium 7.8 L Stl C. cayetanensis PCR Stool Rotavirus (PCR) Stool Adenovirus (PCR) Stool Astrovirus (PCR) Stool Cryptosporidium PCR Stl E.coli Shiga Tox PCR St Sh/Enteroin Ecoli PCR Stool E coli O157 PCR Stl Enterotoxigenic E PCR Stool EPEC (PCR) Stl E. histolytica PCR Stool Giardia Lamblia PCR Stool Sapovirus (PCR) Stl P. shigelloides PCR St Y.enterocolitica PCR Stool Vibrio (PCR) Stl Vibrio cholerae PCR Stl Enteroaggr Ecoli PCR Stl Norovirus GI/GII PCR Campylobacter (PCR) C. difficile Tox (PCR) Salmonella (PCR) 05/01/19 09:40 WBC RBC Hgb Hct MCV MCH MCHC RDW Plt Count Neut % (Auto) Lymph % (Auto) [place] % (Auto) Eos % (Auto) Baso % (Auto) Neut # (Auto) Lymph # (Auto) [place] # (Auto) Eos # (Auto) Baso # (Auto) PT INR Sodium Potassium Chloride Carbon Dioxide BUN Creatinine Estimated GFR BUN/Creatinine Ratio Glucose Calcium Stl C. cayetanensis PCR Not detected Stool Rotavirus (PCR) Not detected Stool Adenovirus (PCR) Not detected Stool Astrovirus (PCR) Not detected Stool Cryptosporidium PCR Not detected Stl E.coli Shiga Tox PCR Not detected St Sh/Enteroin Ecoli PCR Not detected Stool E coli O157 PCR Not detected Stl Enterotoxigenic E PCR Not detected Stool EPEC (PCR) Not detected Stl E. histolytica PCR Not detected Stool Giardia Lamblia PCR Not detected Stool Sapovirus (PCR) Not detected Stl P. shigelloides PCR Not detected St Y.enterocolitica PCR Not detected Stool Vibrio (PCR) Not detected Stl Vibrio cholerae PCR Not detected Stl Enteroaggr Ecoli PCR Not detected Stl Norovirus GI/GII PCR Not detected Campylobacter (PCR) Not detected C. difficile Tox (PCR) Not detected Salmonella (PCR) Not detected Assessment & Plan Assessment & Plan narrative: Patient colon this appears to be improving. Suspect that it is probably ischemic colitis. At some point she needs to have a colonoscopy to remove the residual polyp in her right a ascending colon as well as evaluate this colitis. The patient understands this. If she is sent home she probably should have a follow-up to see me in about a week. She was encouraged by me to proceed with her GI appointment which has been delayed for some time. Quality VTE Deep Vein Thrombosis/Pulmonary Embolism Present on Admission: Yes
[2019-05-01 19:32] VITALS: BP 137/63; PULSE 64; RESP 18; TEMP 37.2; O2SAT 96
--- NOTE | 2019-05-01 22:46 | PC.NURSE ---
2100 patient received patient education on her condition of diverticulitis and ulcerative colitis. Patient had some questions regarding nutritional diet with diagnosis of diverticulitis and ulcerative colitis. I reviewed the nutritional advice with the patient listed in her patient education. Patient gave verbal acknowledgement of understanding the material she was given.
[2019-05-02 02:30] VITALS: BP 143/69; PULSE 74; RESP 16; TEMP 37.3; O2SAT 95
[2019-05-02 05:02] VITALS: BP 133/61; PULSE 67; RESP 16; TEMP 36.6; O2SAT 94
[2019-05-02 05:14] LABS: Add Manual Diff / Slide Review NO; Basophils Absolute Auto 0 /uL (0-100); Basophils Percent Auto 0.6 % (0-2); Eosinophils Absolute Auto 100 /uL (0-450); Eosinophils Percent Auto 2.1 % (2-4); Hematocrit 28.1 % (36-46); Hemoglobin 9.5 g/dL (12.0-16.0); Lymphocytes Absolute Auto 1100 /uL (1100-4500); Lymphocytes Percent Auto 20.5 % (25-40); Mean Corpuscular HGB Conc 33.8 % (30-36); Mean Corpuscular Hemoglobin 30.2 PG (26-34); Mean Corpuscular Volume 89.3 fL (80-100); Monocytes Absolute Auto 300 /uL (0-900); Monocytes Percent Auto 5.8 % (3-14); Neutrophils Absolute Auto 3700 /uL (1500-7000); Platelet Count 154 X10^3/uL (150-400); Red Blood Cell Count 3.15 X10^6/uL (4.0-5.2); Red Cell Distribution Width 14.4 % (11.6-14.8); White Blood Cell Count 5.2 X10^3/uL (4.5-11.0)
[2019-05-02 05:17] LABS: INR 1.2 (0.9-1.3); Prothrombin Time 13.8 SECONDS (10.1-12.7)
[2019-05-02 05:23] LABS: BUN Creatinine Ratio 7.1 (6-22); Blood Urea Nitrogen 10 mg/dL (7-17); Calcium 7.8 mg/dL (8.4-10.2); Carbon Dioxide 19 mmol/L (22-32); Chloride 114 mmol/L (98-107); Estimated Glomerular Filt Rate 37.1 mL/min (>60); Glucose 86 mg/dL (80-110); HEMOLYSIS < 15 (0-50); Potassium 3.3 mmol/L (3.4-5.1); Sodium 139 mmol/L (137-145)
[2019-05-02] MEDS: LEVOTHYROXINE 137 MCG TABLET PO (06:34)
[2019-05-02 08:41] VITALS: BP 141/76; PULSE 67; RESP 17; TEMP 37.3; O2SAT 96
--- NOTE | 2019-05-02 09:01 | PT.IIE ---
Current Diagnoses Melena (04/29/19) Surgical History (Last Reviewed 04/29/19 @ 14:14 by Aayush Bell MD) Anesthesia (Resolved) History of bilateral salpingo-oophorectomy (BSO) (Resolved 11/26/16) History of cardiac radiofrequency ablation (RFA) (Resolved 01/2015) History of knee replacement (Resolved 10/04/08) Status post tubal ligation (Resolved 1979) Medical History (Last Reviewed 04/29/19 @ 14:14 by Aayush Bell MD) Ankle pain (Resolved 2015) Atrial fibrillation (Chronic) Chicken pox (Resolved ~1962) Depression (Chronic 1997) Dyspepsia (Chronic) Foot pain (Resolved 2015) Hypothyroidism (Chronic 1997) Menopause (Chronic) Mitral regurgitation (Chronic 05/2014) Morbid obesity with body mass index (BMI) of 40.0 to 49.9 (Chronic) Mumps (Resolved ~1957) Obstructive sleep apnea (Chronic ~10/27/09) Rosacea (Chronic 2015) Physical Therapy Inpatient Evaluation/Re-Eval M1 PT/OT-IP Prior Functional Status Start: 05/02/19 08:50 Freq: NEEDED Status: Active Protocol: Document 05/02/19 08:50 [facility] (Rec: 05/02/19 09:01 [facility] [id number]) Medical Review Prior Functional Status Medical History Reviewed Yes Diet/Fluid Consistency Regular Communication WNL Mobility and Gait indep without AD, goes for walks Activities of Daily Living and IADL's indep with ADLs, helps watch grandkids Social History Household Members family Living Arrangements House Number of Floors (Floors) Two Floors Number of Stairs To Enter/Railing? 3 ANA MARIA with rail, does not use basement d/t grandson lives there Home Environment Standard Height Toilet,Tub/ Shower Employment Status Retired M2 PT-IP Current Condition Start: 05/02/19 08:50 Freq: NEEDED Status: Active Protocol: Document 05/02/19 08:50 [facility] (Rec: 05/02/19 09:01 [facility] [id number]) Physical Therapy Current Condition Current Condition Evaluation Date 05/02/19 Treatment Diagnosis weakness,GI bleed Weight Bearing Status Weight Bearing Status Full Weight Bearing M3 PT-IP Subjective Start: 05/02/19 08:50 Freq: NEEDED Status: Active Protocol: Document 05/02/19 08:50 [facility] (Rec: 05/02/19 09:01 [facility] [id number]) Subjective Physical Therapy Visit Type Type Initial Evaluation Visit Start Time 08:18 Visit Stop Time 08:45 Total Visit Minutes 27 Number of POWDER WORKER TNT Visits 0 Physical Therapy Visit Comments Patient Comments Pt's dgt notes seseth can help her at home if neeeded Therapy Pain Assessment Pain When Pain Assessed At Rest Pain Present Pain Present Pain Reported Location Neck Pain Management Techniques Apply Heat M4 PT-IP Mobility and Gait Start: 05/02/19 08:50 Freq: NEEDED Status: Active Protocol: Document 05/02/19 08:50 [facility] (Rec: 05/02/19 09:01 [facility] [id number]) PT-Transfer Assessment Sit to and From Stand Sit to and from Stand Independent Equipment Transfer Assistive Device Gait Belt Orthotic/Prosthetic Devices or Brace: No Comments Mobility Comments Pt stood from chair for therapist and also stood from bench in room indep Gait Assessment Gait Gait Assistance Required: Standby Assistance Distance (Feet) 220 Able to Maintain Weight Bearing Status Yes During Gait Assistive Devices Assistive Device Gait Belt Orthotic/Prosthetic Devices or Brace: No Gait Deviations General Gait Pattern Within Normal Limits Comments Gait Comments Pt has slight SOB with ambulation but is able to cont to participate in balance testing. No lightheadedness or dizziness Stair Climbing Assessment Evaluation Level of Assist On Stairs Standby Assistance Technique/Endurance Stair Climbing Direction Ascend and Descend Stair Climbing Technique Step to Step Number of Steps Climbed 4 Query Text: Comments Stair Climbing Comments able to step up single step easily with L but difficult with R on 8 in single step-pt reports this is normal, she tries to work on this at home, alt use for side of railing PT-Balance Assessment Sitting Balance and Reactions Static Sitting Balance Ability Normal Dynamic Sitting Balance Ability Normal Standing Balance and Reactions Static Standing Balance Ability Normal Dynamic Standing Balance Ability Normal Balance Tests Garcia Balance Test Score 50 Query Text:Score Functional Assessments Functional Tests Tinetti Balance and Gait Assessment 24 M5 PT-IP Objective Assessments Start: 05/02/19 08:50 Freq: NEEDED Status: Active Protocol: Document 05/02/19 08:50 [facility] (Rec: 05/02/19 09:01 [facility] [id number]) Orientation Orientation/Cognition Level of Alertness Alert Language Function Ability No Deficits Noted Safety Awareness Understands Safety Issues Memory Description No Deficits Noted Strength Lower Extremity Strength Assessment Within Functional Limits M6 PT-IP Treatment Start: 05/02/19 08:50 Freq: NEEDED Status: Active Protocol: Document 05/02/19 08:50 [facility] (Rec: 05/02/19 09:01 [facility] [id number]) Physical Therapy Treatment Education Education Provided Safety Other Treatments Other Treatment Performed Pt educated indep in room but not to hop picker anything off floor indep and to call for assistance to move things out of her way as needed and if she feels SOB or lightheaded or dizzy. M7 PT-IP Assessment and Plan Start: 05/02/19 08:50 Freq: NEEDED Status: Active Protocol: Document 05/02/19 08:50 [facility] (Rec: 05/02/19 09:01 [facility] [id number]) PT Summary Assessment and Plan Potential Rehabilitation Potential Excellent Status of Condition at Evaluation Stable Summary Assessment Summary Pt is indep with her mobility at this time and will be safe to return home with family when medically stable. She is motivated to maintain her mobility and was aware of all safety conerns. Balance tests show low fall risk so pt indep in room. Frequency of Treatment Frequency Of Treatment Discharge Recommendations To Nursing Amount of Assist Needed Independent Discharge Recommendations PT Discharge Recommendations Home with Assistance, Outpatient PT Other Discharge Recommendations OP PT for neck pain Transportation Needs at Discharge Private Vehicle
[2019-05-02] MEDS: CHOLECALCIFEROL (VITAMIN D3) 1,000 UNIT TABLET 2000 UNIT PO (09:13)
[2019-05-02] MEDS: LIDOCAINE PATCH 1 EACH ADH..PATCH TOP (09:13)
[2019-05-02] MEDS: TAMOXIFEN 10 MG TABLET 20 MG PO (09:14)
[2019-05-02] MEDS: FLECAINIDE 100 MG TABLET PO ×2 (09:14→22:04)
--- NOTE | 2019-05-02 11:33 | OT.IPNOTE ---
Spoke to pt as here for GI bleed. Pt states has been cleared to be independent in the room by PT. Pt has been able to do all toileting needs on her own. Therefore, discharge OT eval. Pt states her neck pain is better due to now has her own pillow.
[2019-05-02 12:00] VITALS: BP 161/73; PULSE 67; RESP 18; TEMP 37.2; O2SAT 98
[2019-05-02 15:46] VITALS: BP 135/68; PULSE 61; RESP 16; TEMP 37.5; O2SAT 96
--- NOTE | 2019-05-02 16:33 | PM.PN.1 ---
Subjective Subjective Date Patient Seen: 05/02/19 Time Patient Seen: 08:00 Interval history: The pt reports continued improvement with her abdominal cramping. She tolerated full liquid diet well last night. She continues to have liquid bowel movements, frequently without warning. No chills. Exam Vital Signs (past 8 hours): - 05/02/19 08:41 05/02/19 12:00 05/02/19 15:46 Temperature 99.2 F 99.0 F 99.5 F Pulse Rate 67 67 61 Respiratory Rate 17 18 16 Blood Pressure 141/76 H 161/73 H 135/68 Pulse Oximetry 96 98 96 Oxygen Delivery Method Room Air Oxygen Flow Rate 0 Narrative Exam Narrative: Gen: NAD, sitting comfortably in bed, appears well CV: RRR, no murmurs Resp: clear to auscultation bilaterally Abd: soft, nontender, nondistended, normoactive bowel sounds Ext: no edema Objective Labs Result Diagrams: 05/02/19 04:44 05/02/19 04:44 Labs: Laboratory Results - last 24 hr 05/02/19 05/02/19 05/02/19 04:44 04:44 04:44 WBC 5.2 RBC 3.15 L Hgb 9.5 L Hct 28.1 L MCV 89.3 MCH 30.2 MCHC 33.8 RDW 14.4 Plt Count 154 Neut % (Auto) 71.0 Lymph % (Auto) 20.5 L [place] % (Auto) 5.8 Eos % (Auto) 2.1 Baso % (Auto) 0.6 Neut # (Auto) 3700 Lymph # (Auto) 1100 [place] # (Auto) 300 Eos # (Auto) 100 Baso # (Auto) 0 PT 13.8 H INR 1.2 Sodium 139 Potassium 3.3 L Chloride 114 H Carbon Dioxide 19 L BUN 10 Creatinine 1.40 H Estimated GFR 37.1 L BUN/Creatinine Ratio 7.1 Glucose 86 Calcium 7.8 L Assessment & Plan Assessment & Plan narrative: 69yo woman with CKD, atrial fibrillation on chronic anticoagulation, hypothyroidism, hypertension, hx of diverticulosis, and hx of breast cancer who presented with abdominal cramping and orthostatic hypotension, then passing bright red blood per rectum in the ER. CT of her abdomen showed likely colitis. 1) Acute lower GI bleed: With resultant acute blood loss anemia. Pt with single fever after admission. Most likely the result of colitis - more likely ischemic. H/H remains stable. Bleeding now stopped. Stool PCR negative. - Surgery consulted, appreciate ongoing care and recommendations - Zosyn stopped yesterday - Continue to advance diet - Continue Bentyl for cramping - Continue Pantoprazole - D/C mIVF - Zofran PRN for nausea 2) Hypertension, Atrial Fibrillation: Currently in sinus rhythm - Hold Coumadin due to bleeding - Continue home Diltiazem, Flecainide, Lisinopril, Atorvastatin 3) Hx of breast cancer: - Continue Tamoxifen 4) Hypothyroidism: Last TSH 12/2018 normal range - Continue Levothyroxine 5) Right lower lobe groundglass density: Reportedly increased in size slightly since 2016. Dedicated chest CT showing no additional areas of concern. Will plan for surveillance as an outpatient. FEN: Cardiac diet Code: Full DVT prophylaxis: SCDs for now due to bleeding Dispo: Plan for discharge tomorrow assuming pt tolerates full diet today. Quality VTE Deep Vein Thrombosis/Pulmonary Embolism Present on Admission: Yes
[2019-05-02] MEDS: dilTIAZem CD 180 MG CAP PO (17:52)
[2019-05-02] MEDS: dilTIAZem CD 120 MG CAP PO (17:52)
[2019-05-02] MEDS: ATORVASTATIN 20 MG TABLET PO (17:52)
[2019-05-02 21:04] VITALS: BP 151/59; PULSE 74; RESP 16; TEMP 36.8; O2SAT 98
--- NOTE | 2019-05-02 22:08 | PC.NURSE ---
2200 - Pt resting in bed. Reports 2 episodes of loose stool this evening. One with scant blood tinge. Denies cramping, denies nausea. Home C-pap machine at bedside. Able to take HS meds without difficulty. Denies further need at this time. Call light in reach.
[2019-05-03 00:31] VITALS: BP 120/59; PULSE 73; RESP 16; TEMP 36.2; O2SAT 91
[2019-05-03 05:23] VITALS: BP 113/54; PULSE 64; RESP 18; TEMP 35.8; O2SAT 96
[2019-05-03 05:27] LABS: Add Manual Diff / Slide Review NO; Basophils Absolute Auto 0 /uL (0-100); Basophils Percent Auto 0.6 % (0-2); Eosinophils Absolute Auto 200 /uL (0-450); Eosinophils Percent Auto 3.1 % (2-4); Hematocrit 28.1 % (36-46); Hemoglobin 9.6 g/dL (12.0-16.0); INR 1.1 (0.9-1.3); Lymphocytes Absolute Auto 1200 /uL (1100-4500); Lymphocytes Percent Auto 23.5 % (25-40); Mean Corpuscular HGB Conc 34.2 % (30-36); Mean Corpuscular Hemoglobin 30.4 PG (26-34); Mean Corpuscular Volume 88.7 fL (80-100); Monocytes Absolute Auto 300 /uL (0-900); Monocytes Percent Auto 6.2 % (3-14); Neutrophils Absolute Auto 3400 /uL (1500-7000); Neutrophils Percent Auto 66.6 % (50-75); Platelet Count 184 X10^3/uL (150-400); Prothrombin Time 12.9 SECONDS (10.1-12.7); Red Blood Cell Count 3.16 X10^6/uL (4.0-5.2); Red Cell Distribution Width 14.3 % (11.6-14.8); White Blood Cell Count 5.1 X10^3/uL (4.5-11.0)
[2019-05-03 05:41] LABS: BUN Creatinine Ratio 7.9 (6-22); Blood Urea Nitrogen 11 mg/dL (7-17); Calcium 8.3 mg/dL (8.4-10.2); Carbon Dioxide 22 mmol/L (22-32); Chloride 112 mmol/L (98-107); Estimated Glomerular Filt Rate 37.1 mL/min (>60); Glucose 104 mg/dL (80-110); HEMOLYSIS < 15 (0-50); Potassium 3.4 mmol/L (3.4-5.1); Sodium 139 mmol/L (137-145)
--- NOTE | 2019-05-03 06:42 | PC.NURSE ---
Assumed care of Pt @ 0330 Resting comfortably, reports no further urgent stools so far this shift. Plans to d/c home later today. Call light in reach.
[2019-05-03] MEDS: LEVOTHYROXINE 137 MCG TABLET PO (07:19)
[2019-05-03 07:45] VITALS: BP 156/72; PULSE 64; RESP 18; TEMP 37.4; O2SAT 98
[2019-05-03] MEDS: CHOLECALCIFEROL (VITAMIN D3) 1,000 UNIT TABLET 2000 UNIT PO (08:38)
[2019-05-03] MEDS: TAMOXIFEN 10 MG TABLET 20 MG PO (08:40)
[2019-05-03] MEDS: FLECAINIDE 100 MG TABLET PO (08:40)
--- NOTE | 2019-05-03 09:06 | P.DS_ITS ---
History of Present Illness History of Present Illness Date Patient Seen: 05/03/19 Time Patient Seen: 08:00 Chief complaint: Near Syncope Narrative: Patient mid early this morning through the emergency room for GI bleed. Patient is basically well yesterday during the day last night she began have abdominal cramps of some loose stools about 10:00 a.m.. She thinks it may been some but at that time. This morning she was having difficulty ambulating and felt like she was going to pass out daughter who was unable to lift her up so a slitter helper was called. Evaluation by paramedics as well as emergency room found her to be have orthostatic ABS vital signs reviewed responding to fluid resuscitation successfully so. Report from the emergency room doctor was out there was stool there that appeared from her perspective be ?melena?. Patient denies having had black stools in the past or recently unclear whether not she has has not. She has not taken any anti-inflammatories. She does take warfarin for her atrial fibrillation. He has had intermittent GI issues in the past. Underwent colonoscopy twice last year by the surgeons here on hospital. Apparently was difficult unable to complete. Apparently was referred to global supply chain vice president at yet to be determined as that has not been completed. Patient does have a history of a document diverticulosis. She polyp was done this past summer that showed tubular adenoma. Other medical problems and includes atrial fibrillation she has undergone cardioversion and ablation. She is in sinus rhythm. But she apparently is on warfarin ?forever?. She is unaware of a when she goes atrial fibrillation hands prophylaxis. She has chronic kidney disease stage 3 seeing press helper on a regular basis. Has history of breast cancer status post lumpectomy and lymph node dissection. Underwent radiation and is ?cancer-free?. She is on tamoxifen for same for another couple years per Other medical problems include hypertension and hyperlipidemia, hypothyroidism. Has sleep apnea and uses CPAP machine Discharge Providers Provider Date of admission: 04/29/19 03:41 Discharge Date: 05/03/19 Primary care physician: Lily Belcher MD Consults: 04/29/19 09:35 Consult to General Surgery Routine Comment: Consulting Provider: Aayush Bell Reason for consultation: gi bleed Has provider been notified: Yes 04/29/19 14:31 Consult to Respiratory Therapy Evaluate & Treat Comment: pt has home CPAP Physician Instructions: Evaluate and treat 05/02/19 08:08 Consult to Occupational Therapy Evaluate & Treat Comment: Physician Instructions: Evaluate and treat Consult to Physical Therapy Evaluate & Treat Comment: Physician Instructions: Evaluate and Treat Discharge provider: Lily Belcher MD Summary Hospital Course Discharge Diagnosis: Acute lower GI bleed Acute blood loss anemia due to lower GI bleed Ischemic colitis Hypertension Atrial Fibrillation Hypothyroidism Hx of breast cancer Hospital Course: The pt presented with abdominal cramping and near syncopal episode at home, then with bright red bleeding per rectum in the ER. She was admitted due to lower GI bleed. Surgery was consulted, and recommended conservative management. The pt remained hemodynamically stable, and her H/H stabilized. Abdominal CT showed evidence of colitis and possible diverticulitis. The first evening after admission the pt developed a fever to 100.6F. She was started on IV antibiotics, which were continued until the day prior to discharge. Stool studies returned negative. The pts colitis was thought to be ischemic in nature. The pts diet was gradually advanced, without return of her bleeding. She continues to have intermittent diarrhea, but it is becoming more formed. At the time of discharge, the pt was feeling overall well. She denied any further abdominal cramping. She will f/u with surgery as an outpatient with plans for colonoscopy. She will also f/u with GI as an outpatient. After discussion of the risks vs benefits, the pt will stop her Coumadin for now due to the GI bleeding. Status at Discharge Cognitive/behavioral status at discharge: oriented Functional status at discharge: independent ambulation Overall status at discharge: patient is progressing back to baseline Time Spent with Patient Time spent: Greater than 30 minutes Exam Vital Signs (past 8 hours): - 05/03/19 05:23 05/03/19 07:45 Temperature 96.5 F L 99.3 F Pulse Rate 64 64 Respiratory Rate 18 18 Blood Pressure 113/54 L 156/72 H Pulse Oximetry 96 98 Oxygen Delivery Method Room Air Oxygen Flow Rate 0 Narrative Exam Narrative: Gen: NAD, sitting comfortably in bed, appears well CV: RRR, no murmurs Resp: clear to auscultation bilaterally Abd: soft, nontender, nondistended, normoactive bowel sounds Ext: no edema Objective Labs Result Diagrams: 05/03/19 05:04 05/03/19 05:04 Labs: Laboratory Results - last 24 hr 05/03/19 05/03/19 05/03/19 05:04 05:04 05:04 WBC 5.1 RBC 3.16 L Hgb 9.6 L Hct 28.1 L MCV 88.7 MCH 30.4 MCHC 34.2 RDW 14.3 Plt Count 184 Neut % (Auto) 66.6 Lymph % (Auto) 23.5 L [place] % (Auto) 6.2 Eos % (Auto) 3.1 Baso % (Auto) 0.6 Neut # (Auto) 3400 Lymph # (Auto) 1200 [place] # (Auto) 300 Eos # (Auto) 200 Baso # (Auto) 0 PT 12.9 H INR 1.1 Sodium 139 Potassium 3.4 Chloride 112 H Carbon Dioxide 22 BUN 11 Creatinine 1.40 H Estimated GFR 37.1 L BUN/Creatinine Ratio 7.9 Glucose 104 Calcium 8.3 L Discharge Plan Discharge Plan Patient Disposition: Home Discharge orders & Medications Prescriptions: Continued levothyroxine 137 mcg tablet See Rx Instructions .ROUTE .COMPLEX Qty: 90 RF: 4 lisinopril 5 mg Tablet 5 mg PO DAILY RF: 0 tamoxifen 20 mg Tablet 20 mg PO DAILY Qty: 90 RF: 4 diltiazem HCl 300 mg capsule,extended release 24hr 300 mg PO QPM RF: 0 flecainide 100 mg tablet 100 mg PO Q12H RF: 0 metronidazole 0.75 % Gel 1 applic TOPICAL BEDTIME PRN (Reason: ROSACIA) RF: 0 cholecalciferol (vitamin D3) [Vitamin D3] 2,000 unit Capsule 2,000 unit PO DAILY RF: 0 atorvastatin 20 mg tablet 20 mg PO QPM RF: 0 (DME) ResMed AirSense 10 CPAP Qty: 1 RF: 0 Discontinued warfarin 5 mg tablet 5 mg PO DAILY Qty: 45 RF: 0 Follow up/Referrals: Lily Belcher MD [Primary Care Provider] - 1 Month (Dr. Spencer RN will call patient to schedule appointment.) Diet/Activity/Treatments Diet: Diet as Tolerated Visit Report/Discharge Packet Instructions: Gastrointestinal Bleeding, DI for Colitis Visit Report Forms: Patient Portal/API, Stroke Signs & Symptoms Discharge Data Primary Care Provider: Lily Belcher Quality VTE Deep Vein Thrombosis/Pulmonary Embolism Present on Admission: Yes
--- NOTE | 2019-05-03 10:21 | PC.NURSE ---
Discharge teaching completed with Pt and follow up appt scheduled as requested. PIV x2 removed, tele removed. Up to w/c for d/c to private vehicle.
--- NOTE | 2019-05-03 13:56 | CM.DPC ---
DCP: continued: case received and reviewed for last several days. Discussed in Team Rounds. A d/c to home order was noted. Checked in after Rounds and noted that pt had already left for the home settin
== END 2019-05-03 11:04 | disposition home or self-care (01) | DRG 377 ==
LOC: ED 02:38 → AC 03:42 → ICU 05:07
PROVIDERS: Specialist; Admitting Provider Family Medicine; Emergency Provider Emergency Medicine; Family Provider Family Medicine; PCP Family Medicine; Referring Provider Emergency Medicine; Visit Provider Family Medicine
DX: K92.2 Gastrointestinal hemorrhage, unspecified (principal); K55.039 Acute (reversible) ischemia of large intestine, extent unspecified; Z68.41 Body mass index [BMI] 40.0-44.9, adult; D62 Acute posthemorrhagic anemia; D68.32 Hemorrhagic disorder due to extrinsic circulating anticoagulants; N18.3 Chronic kidney disease, stage 3 (moderate); Z79.01 Long term (current) use of anticoagulants; E66.01 Morbid (severe) obesity due to excess calories; I12.9 Hypertensive chronic kidney disease with stage 1 through stage 4 chronic kidney disease, or unspecified chronic kidney disease; I48.0 Paroxysmal atrial fibrillation; E78.5 Hyperlipidemia, unspecified; G47.33 Obstructive sleep apnea (adult) (pediatric); E03.9 Hypothyroidism, unspecified; Z85.3 Personal history of malignant neoplasm of breast; L71.9 Rosacea, unspecified; Z87.891 Personal history of nicotine dependence; T45.515A Adverse effect of anticoagulants, initial encounter
CPT/HCPCS: 36415; 71250; 74176; 80048; 80053; 82550; 82553; 84484; 85014; 85018; 85025; 85027; 85610; 85730; 86850; 86900; 86901; 87507; 87797; 93005; 96361; 96365; 96366; 96375; 96376; 97161; 99223; 99231; 99232; 99238; 99284; C9113; J2405; J2543

== ENCOUNTER → 2019-08-12 09:03 | Outpatient (CLI) | payer OTHER, SELFPAY ==
[2019-07-09 14:33] VITALS: BMI 40.2
[2019-08-13 03:30] LABS: COVID19 Sendout Not Detected (Not Detect)
== END ==
PROVIDERS: Family Provider Family Medicine; PCP Family Medicine; Visit Provider Physician Assistant
DX: Z01.812 Encounter for preprocedural laboratory examination (principal)
CPT/HCPCS: 87635

== ENCOUNTER 2019-08-15 13:37 | Day surgery (SDC) | payer OTHER, SELFPAY ==
[2019-07-09 14:33] VITALS: BMI 40.2
[2019-08-15] VITALS (8 sets, daily range): BP systolic 122–149; BP diastolic 47–71; PULSE 62–66; RESP 12–22; TEMP 35.9–36.7; O2SAT 95–99; BMI 38.1
--- NOTE | 2019-08-15 | PATH_ITS ---
[facility] Accession Number: [id number] . 01 Material submitted: . PART A: body - RISIDUAL POLYP AT TATTOO SITE PART B: ileo-cecal valve - LARGE ILEOCECAL POLYP . 02 Diagnosis: A. Residual Polyp at Tattoo Site, Biopsy: Tubular adenoma. . B. Large Ileocecal Polyp, Biopsy: Tubulovillous adenoma. No evidence of malignancy or high-grade dysplasia. MRV 08/17/2019 1135 Local . 02 Electronically signed: . Jessa Larose MD, Pathologist NPI- [id number] . 01 Gross description: . Part A: RISIDUAL POLYP AT TATTOO SITE: Received in formalin is 1 fragment(s) of chapa, soft tissue measuring 0.3 x 0.3 x 0.2 cm submitted entirely in 1 cassette(s) Part B: LARGE ILEOCECAL POLYP: Received in formalin are multiple fragment(s) of chapa, soft tissue measuring 0.1 x 0.1 x 0.1 cm to 0.6 x 0.6 x 0.5 cm submitted entirely in 3 cassette(s) /MORRIS 08/16/2019 1813 Local . 02 Pathologist provided ICD-10: D12.0, D12.6 . 02 CPT . 985291, 009084 Performed at: 01 [facility] [address] [id number] MD Yariel Houston MD Phone: [phone] Performed at: 02 [facility] [address] [place], [place] [id number] MD Jessa Larose MD Phone: [phone]
--- NOTE | 2019-08-15 14:08 | SUR.PREOP ---
Had pre-op lab/EKG orders; spoke with Dr. Weinberg. He stated that it is only is the anesthesiologist wants them. Spoke to Dr. Geller. She didn't want labs; EKG w/i one year is OK. Recent EKG printed for her.
[2019-08-15] MEDS: SODIUM CHLORIDE 0.9% 1,000 ML 150 ML IV (14:16)
--- NOTE | 2019-08-15 14:33 | PM.PREOP ---
Pre-operative Note COVID-19 COVID-19 status: Negative Interval Note History & Physical reviewed/Exam performed by Physician: Yes Changes to H&P: No ASA Class (for procedural sedation): II
--- NOTE | 2019-08-15 14:34 | PM.OP.ENDO ---
Operative Date/Time/Diagnoses Date of procedure: 08/15/19 Time of procedure: 14:34 Pre-op diagnosis: See indication and findings Procedure & Clinicians Study performed: Colonoscopy Same procedure as scheduled: Yes Indications: Possibly incompletely removed colon polyp in the ascending colon. Need for follow-up of polyp removal and to remove and treat any residual Surgeon: Nataliia Weinberg Procedure Notes Procedure in detail: After informed consent was obtained the patient placed in left lateral decubitus position. The video colonoscope was introduced the rectum and slowly advanced cecum. On slow withdrawal mucosa was carefully examined. Preparation was good. The scope was removed. The patient tolerated procedure well. Blood loss none Complications none Sedation Monitored anesthesia care Findings 1. Large tattoo in the mid ascending colon. In the midst of this the 0 1 cm flat polyp. This apprised single E was able to be raised with several cc of saline. Attempt to remove by snare was successful in only 1/3. Attempt to use APC had a machine failure. Therefore a hot biopsy forcep was used to grab the not biopsy and apply cautery to all remaining areas of the polyp. One small satellite lesion was also treated that was within the tattoo. 2. Very large protuberant multilobulated polyp projecting from IC valve. This appeared to be the most proximal lip. This area was carefully injected with saline and using a snare taken off in a piecemeal fashion with injections in between removing chunks of polyp. While the IC valve appeared relatively normal and the other was a bit difficult to tell. There may have been a bit a polyp that prolapsed into the IC valve and was not easily accessible. Total procedure time 1 hour We will merely await the results of her the biopsies but she certainly will need follow-up colonoscopy in 3-6 months with anesthesia to re-evaluate the IC valve site to determine whether further polypectomy as necessary.
--- NOTE | 2019-08-15 16:50 | SUR.PHASEII ---
Discharged patient in stable condition with daughter. All belongings returned to patient. Stable at discharge.
== END 2019-08-15 16:51 | disposition home or self-care (01) ==
PROVIDERS: PCP Family Medicine; Referring Provider Internal Medicine Gastroenterology; Visit Provider Internal Medicine Gastroenterology
PROC: 0DJD8ZZ Inspection of Lower Intestinal Tract, Via Natural or Artificial Opening Endoscopic (ICD-10-PCS; CPT 45378; principal; 2019-08-15 15:00)
DX: Z86.010 Personal history of colon polyps (principal); G47.33 Obstructive sleep apnea (adult) (pediatric); N18.9 Chronic kidney disease, unspecified; I48.91 Unspecified atrial fibrillation; E03.9 Hypothyroidism, unspecified; F32.9 Major depressive disorder, single episode, unspecified; D12.0 Benign neoplasm of cecum; D12.6 Benign neoplasm of colon, unspecified
CPT/HCPCS: 45385; 45384; J2704; J3010

== ENCOUNTER → 2019-08-28 14:13 | Outpatient (CLI) | payer OTHER, SELFPAY ==
[2019-07-09 14:33] VITALS: BMI 40.2
== END ==
PROVIDERS: PCP Family Medicine; Visit Provider Family Medicine
DX: N89.8 Other specified noninflammatory disorders of vagina (principal)
CPT/HCPCS: 87070; 87205; 87210

== ENCOUNTER → 2020-01-14 10:38 | Outpatient (CLI) | payer OTHER, SELFPAY ==
[2019-07-09 14:33] VITALS: BMI 40.2
--- NOTE | 2020-01-14 10:39 | DI.MG.S_ITS ---
BILATERAL DIGITAL SCREENING MAMMOGRAM 3D/2D WITH CAD: 01/14/2020 CLINICAL: Routine screening. Family history of breast cancer. Breast cancer. Comparison is made to exams dated: 01/10/2019 mammogram, 01/09/2018 mammogram, and 12/14/2016 mammogram - [facility]. There are scattered fibroglandular elements in both breasts. Current study was also evaluated with a Computer Aided Detection (CAD) system. There are benign calcifications in both breasts. There also are benign vascular calcifications in both breasts. Additionally, there are benign post operative findings in the left breast. No significant masses, calcifications, or other findings are seen in either breast. There has been no significant interval change. IMPRESSION: BENIGN There is no mammographic evidence of malignancy. A 1 year screening mammogram is recommended. This exam was interpreted at Station ID: [id number]. NOTE: For mammograms, a report in lay terms will be sent to the patient. Approximately 15% of breast malignancies will not be visualized mammographically. In the management of a palpable breast mass, a negative mammogram must not discourage biopsy of a clinically suspicious lesion. Electronically Signed By: Omar Whitehead acr/penrad:01/14/2020 11:42:36 copy to: Lily Belcher M.D., [facility] [employer], ph: [phone], fax: [phone] letter sent: Normal Exam ACR BI-RADS Category 2: Benign Finding(s) 3342F
== END ==
PROVIDERS: PCP Family Medicine; Referring Provider Internal Medicine Hematology & Oncology; Visit Provider Internal Medicine Hematology & Oncology
DX: Z12.31 Encounter for screening mammogram for malignant neoplasm of breast (principal); C50.912 Malignant neoplasm of unspecified site of left female breast; Z80.3 Family history of malignant neoplasm of breast
CPT/HCPCS: 77063; 77067

== ENCOUNTER → 2020-04-01 07:00 | Outpatient (CLI) | payer OTHER, SELFPAY ==
[2019-07-09 14:33] VITALS: BMI 40.2
[2020-04-01 09:08] LABS: Thyroid Stimulating Hormone 4.82 uIU/mL (0.47-4.68)
[2020-04-01 16:40] LABS: Cholesterol 147 mg/dL (140-199); HDL Cholesterol 42 mg/dL (40-60); LDL Cholesterol Calculated 71 mg/dL (<100); Triglycerides 168 mg/dL (35-150)
== END ==
PROVIDERS: PCP Family Medicine; Referring Provider Family Medicine; Visit Provider Family Medicine
DX: E03.9 Hypothyroidism, unspecified (principal); E78.5 Hyperlipidemia, unspecified
CPT/HCPCS: 36415; 80061; 84443

== ENCOUNTER → 2020-04-16 11:08 | Outpatient (CLI) | payer OTHER, SELFPAY ==
[2019-07-09 14:33] VITALS: BMI 40.2
[2020-04-16 12:40] LABS: Thyroid Stimulating Hormone 2.89 uIU/mL (0.47-4.68)
== END ==
PROVIDERS: PCP Family Medicine; Referring Provider Family Medicine; Visit Provider Family Medicine
DX: E03.9 Hypothyroidism, unspecified (principal)
CPT/HCPCS: 36415; 84443

== ENCOUNTER → 2020-05-08 11:18 | Outpatient (CLI) | payer OTHER, SELFPAY ==
[2019-07-09 14:33] VITALS: BMI 40.2
[2020-05-08 11:49] LABS: Bacteria Urine None Seen; WBC Urine None Seen (0-5/HPF)
[2020-05-08 13:03] LABS: Appearance Urine UA CLEAR; Bilirubin Urine UA NEGATIVE (NEGATIVE); Color Urine UA YELLOW; Glucose Urine UA NEGATIVE (Negative); Ketones Urine UA NEGATIVE (NEGATIVE); Leukocyte Esterase Urine UA NEGATIVE (NEGATIVE); Nitrite Urine UA NEGATIVE (Negative); Occult Blood Urine UA 3+ (Negative); Protein Urine UA NEGATIVE (Negative); Specific Gravity Urine UA <=1.005 (1.000-1.035); Urobilinogen Urine UA 0.2 E.U./dL (0.2)
[2020-05-08 13:07] LABS: pH Urine UA 6.5 (4.5-8.0)
[2020-05-08 13:10] LABS: Amorphous Sediment Urine 1+; Culture Indicated Urine Cult Not Indicated; RBC Urine 10-30/HPF (0-5/HPF)
[2020-05-08 13:15] LABS: Add Manual Diff / Slide Review NO; Basophils Absolute Auto 0 /uL (0-100); Basophils Percent Auto 0.7 % (0-2); Eosinophils Absolute Auto 100 /uL (0-450); Eosinophils Percent Auto 2.5 % (2-4); Hematocrit 36.2 % (36-46); Hemoglobin 12.1 g/dL (12.0-16.0); Lymphocytes Absolute Auto 1700 /uL (1100-4500); Lymphocytes Percent Auto 31.4 % (25-40); Mean Corpuscular HGB Conc 33.4 % (30-36); Mean Corpuscular Volume 89.6 fL (80-100); Monocytes Absolute Auto 400 /uL (0-900); Monocytes Percent Auto 7.2 % (3-14); Neutrophils Absolute Auto 3200 /uL (1500-7000); Neutrophils Percent Auto 58.2 % (50-75); Platelet Count 177 X10^3/uL (150-400); Red Blood Cell Count 4.04 X10^6/uL (4.0-5.2); White Blood Cell Count 5.5 X10^3/uL (4.5-11.0)
[2020-05-08 13:26] LABS: BUN Creatinine Ratio 11.8 (6-22); Blood Urea Nitrogen 15 mg/dL (7-17); Calcium 9.3 mg/dL (8.4-10.2); Carbon Dioxide 25 mmol/L (22-32); Chloride 105 mmol/L (98-107); Estimated Glomerular Filt Rate 41.4 mL/min (>60); Glucose 82 mg/dL (80-110); Magnesium 1.9 mg/dL (1.6-2.3); Phosphorous 4.2 mg/dL (2.8-4.1); Sodium 136 mmol/L (137-145)
[2020-05-08 13:29] LABS: HEMOLYSIS 164 (0-50); Potassium 4.8 mmol/L (3.4-5.1)
[2020-05-08 15:25] LABS: Creatinine Urine Random 76.7 mg/dL
[2020-05-08 15:31] LABS: Microalbumi Creatinin Ratio Ur 69.1 ug/mg CR (<30); Microalbumin Urine Random 5.3 mg/dL (0-1.6)
[2020-05-08 15:43] LABS: Vitamin D 25 Hydroxy (D3) 33.3 ng/mL (30.0-100.0)
[2020-05-08 17:16] LABS: Uric Acid 7.3 mg/dL (2.5-6.2)
[2020-06-04 12:39] LABS: Parathyroid Hormone Int 33 pg/mL (15-65)
== END ==
PROVIDERS: PCP Family Medicine; Referring Provider Internal Medicine Nephrology; Visit Provider Internal Medicine Nephrology
DX: N18.30 Chronic kidney disease, stage 3 unspecified (principal); I10 Essential (primary) hypertension
CPT/HCPCS: 36415; 80048; 81001; 82043; 82306; 82570; 83735; 83970; 84100; 84550; 85025

== ENCOUNTER → 2020-05-08 11:25 | Outpatient (CLI) | payer OTHER, SELFPAY ==
[2019-07-09 14:33] VITALS: BMI 40.2
--- NOTE | 2020-05-08 11:25 | DI.MRI.S_ITS ---
PROCEDURE: MR HEAD/BRAIN WO CON INDICATIONS: FU SD hematoma and subarachnoid hemorrhage TECHNIQUE: Non-contrast axial T1 spin echo, axial T2 fast spin echo, sagittal and axial FLAIR, coronal T2 fast spin echo, axial gradient echo, axial diffusion and ADC through the brain. COMPARISON: None. FINDINGS: Image quality: Excellent. CSF spaces: Ventricles appear symmetric in size and shape. Basal cisterns are patent. There is a small right temporal occipital lobe subdural high T1 signal intensity focus, measuring roughly 4 mm in thickness. There is a small amount high T1 signal intensity at the medial aspect of the right occipital lobe measuring 5 mm thickness. There is a small focus of high T1 signal intensity measuring 4 mm overlying the right posterolateral frontal lobe. Brain: There is cerebral volume loss for age. There are periventricular and deep white matter chronic small vessel ischemic changes. Brainstem appears normal. Diffusion-weighted images show no acute ischemic insults. No chronic ischemic insults. Normal intravascular flow voids are present. Skull and face: Calvarial bone marrow is normal in signal. Orbits are normal. Sinuses: Sinuses and mastoids are clear. IMPRESSION: 1. Small amount of subdural hemorrhage adjacent to the right cerebral hemisphere as described above. No mass effect. 2. Volume loss and small vessel ischemic disease. Dictated by: Sabas Culver M.D. on 05/08/2020 at 11:23 Approved by: Sabas Culver M.D. on 05/08/2020 at 11:25
== END ==
PROVIDERS: PCP Family Medicine; Referring Provider Family Medicine; Visit Provider Family Medicine
DX: I60.9 Nontraumatic subarachnoid hemorrhage, unspecified (principal); N18.30 Chronic kidney disease, stage 3 unspecified; I10 Essential (primary) hypertension
CPT/HCPCS: 36415; 70551; 80048; 81001; 82043; 82306; 82570; 83735; 83970; 84100; 84550; 85025

== ENCOUNTER → 2020-05-15 10:14 | Outpatient (CLI) | payer MEDICARE, SELFPAY ==
[2019-07-09 14:33] VITALS: BMI 40.2
[2020-05-15] MEDS: COVID-19 VACC, Ad26(JANSSEN)/PF 0.5 ML IM (10:21)
== END ==
PROVIDERS: PCP Family Medicine; Visit Provider Internal Medicine
DX: Z23 Encounter for immunization (principal)
CPT/HCPCS: 0031A; 91303

== ENCOUNTER → 2020-06-03 11:16 | Outpatient (CLI) | payer OTHER, SELFPAY ==
[2019-07-09 14:33] VITALS: BMI 40.2
[2020-06-04 08:29] LABS: Alanine Aminotransferase 13 IU/L (<35); Albumin 3.5 g/dL (3.5-5.0); Albumin Globulin Ratio 1.2 (1.0-2.8); Alkaline Phosphatase 58 U/L (38-126); Aspartate Aminotransferase 19 IU/L (14-36); BUN Creatinine Ratio 14.2 (6-22); Bilirubin Total 0.4 mg/dL (0.2-1.3); Blood Urea Nitrogen 18 mg/dL (7-17); Calcium 9.8 mg/dL (8.4-10.2); Carbon Dioxide 26 mmol/L (22-32); Chloride 106 mmol/L (98-107); Estimated Glomerular Filt Rate 41.4 mL/min (>60); Globulin 2.9 g/dL (1.7-4.1); Glucose 81 mg/dL (80-110); HEMOLYSIS < 15 (0-50); Potassium 4.3 mmol/L (3.4-5.1); Sodium 137 mmol/L (137-145); Total Protein 6.4 g/dL (6.3-8.2)
== END ==
PROVIDERS: Internal Medicine Hematology & Oncology; PCP Family Medicine; Referring Provider Family Medicine; Visit Provider Family Medicine
DX: C50.912 Malignant neoplasm of unspecified site of left female breast (principal)
CPT/HCPCS: 36415; 80053

== ENCOUNTER → 2020-06-04 10:09 | Outpatient (CLI) | payer OTHER, SELFPAY ==
[2019-07-09 14:33] VITALS: BMI 40.2
--- NOTE | 2020-06-04 10:25 | DI.CT.S_ITS ---
PROCEDURE: CT ABDOMEN WO/W CON INDICATIONS: liver laceration TECHNIQUE: 4 phase scanning was performed. Non-contrast 5 mm axial sections acquired from the diaphragm to the iliac crests. Following the administration of intravenous contrast, 5 mm thick arterial-phase, portal venous-phase, and 5-minute delayed phase images were acquired through the liver. 5 mm thick coronal and sagittal reformats were performed. For radiation dose reduction, the following was used: automated exposure control, adjustment of mA and/or kV according to patient size. COMPARISON: [facility], CT, CT ABDOMEN PELVIS WO CON, 04/29/2019, 15:59. [facility], CT, CT CHEST WO CON, 04/30/2019, 13:28. Outside Facility, RG, CT THORAX/ ABD/ PELVIS WITH CONTRAST, 04/01/2020, 20:16. FINDINGS: Image quality: Excellent. Lung bases: Lung bases are clear. Heart size is normal. Liver: Complete resolution of an intrahepatic liver laceration identified during outside CT scanning from [facility], dated 04/01/20. Other solid organs: Gallbladder appears normal. Biliary system is non dilated. Pancreas is normal in morphology. Spleen is normal in size and enhancement. No new adrenal nodules. And a presumed posttraumatic right adrenal hemorrhage I present 04/01/[address] scanning has almost completely involuted. Both kidneys demonstrate normal size and enhancement, without hydronephrosis or nephrolithiasis. Nodes and vessels: No retroperitoneal or mesenteric adenopathy by size criteria. Aorta and inferior vena cava are normal in size. Bowel and peritoneum: Unenhanced bowel loops are normal in caliber. No free fluid or air. Bones: No suspicious bony lesions. No vertebral body compression fractures. Miscellaneous: No ventral hernias. IMPRESSION: Resolution of intrahepatic liver laceration seen on CT scanning 04/01/20. A presumed right adrenal hemorrhage also present on that prior CT has almost completely resolved. Dictated by: Justice Amador M.D. on 06/04/2020 at 14:44 Approved by: Justice Amador M.D. on 06/04/2020 at 14:55
== END ==
PROVIDERS: PCP Family Medicine; Referring Provider Family Medicine; Visit Provider Family Medicine
DX: S36.113A Laceration of liver, unspecified degree, initial encounter (principal); X58.XXXA Exposure to other specified factors, initial encounter
CPT/HCPCS: 74170

== ENCOUNTER → 2021-07-06 09:55 | Outpatient (CLI) | payer OTHER, SELFPAY ==
[2019-07-09 14:33] VITALS: BMI 40.2
[2021-07-06 11:32] LABS: COVID19 -Nasal RAPID Negative (Negative)
== END ==
PROVIDERS: PCP Family Medicine; Visit Provider Family Medicine Sleep Medicine
DX: Z20.822 Contact with and (suspected) exposure to COVID-19 (principal)
CPT/HCPCS: 87635; C9803

== ENCOUNTER 2021-07-08 08:23 | Day surgery (SDC) | payer OTHER, SELFPAY ==
[2019-07-09 14:33] VITALS: BMI 40.2
--- NOTE | 2021-07-08 | PATH_ITS ---
[facility] Accession Number: [id number] . 01 Material submitted: . ileo-cecal valve - ILEOCECAL VALVE POLYP . 02 Diagnosis: Ileocecal Valve, Polyp, Biopsy: Tubulovillous adenoma. No evidence of malignancy or high-grade dysplasia. [facility] 07/13/2021 1525 Local . 02 Electronically signed: . Jessa Larose MD, Pathologist NPI- [id number] . 01 Gross description: . ILEOCECAL VALVE POLYP: Received in formalin is 1 fragment(s) of chapa, soft tissue measuring 0.3 x 0.3 x 0.2 cm submitted entirely in 1 cassette(s) /CPE 07/09/2021 0805 Local . 02 Pathologist provided ICD-10: D12.0 . 02 CPT . 398264 Specimen Comment: A courtesy copy of this report has been sent to [phone] Performed at: [address] [facility] [address], [place], [place] [id number] MD Yariel Houston MD Phone: [phone] Performed at: 02 [facility] [place] [address] [place], [place] [id number] MD Jessa Larose MD Phone: [phone]
[2021-07-08 08:53] VITALS: BMI 39.8
[2021-07-08] MEDS: LACTATED RINGERS 1,000 ML 42 ML IV (08:59)
[2021-07-08 09:00] VITALS: BP 131/80; PULSE 67; RESP 16; TEMP 36.4; O2SAT 99
--- NOTE | 2021-07-08 09:19 | PM.HP.1 ---
History of Present Illness History of Present Illness Chief complaint: COLONOSCOPY Patient History Medical History Ankle pain (2015) Atrial fibrillation Chicken pox (~1963) Depression (1997) Dyspepsia Foot pain (2015) Hearing loss Hypothyroidism (1997) Liver laceration Menopause Mitral regurgitation (05/2014) Morbid obesity with body mass index (BMI) of 40.0 to 49.9 Mumps (~1958) Obstructive sleep apnea (~10/27/09) Pulmonary contusion Right adrenal mass Rosacea (2015) Tinnitus Surgical History Anesthesia H/O cardiac radiofrequency ablation (~2014) History of bilateral salpingo-oophorectomy (BSO) (11/26/16) History of cardiac radiofrequency ablation (RFA) (01/2015) History of knee replacement (10/04/08) Status post tubal ligation (1979) Family & Social History Family History Brother Tachycardia Hyperlipidemia Alzheimer's dementia Bladder cancer Father CAD (coronary artery disease) Mother Age: 93 Hypothyroidism DDD (degenerative disc disease) Dementia Grandfather Heart disease Grandmother Heart disease Grandfather No problems noted. Grandmother No problems noted. Social History: household members family lives independently Yes caregiver/support person No Tobacco & Substance use: Smoking Status Former smoker alcohol intake never Substance Use Type does not use Meds Home Medications and Allergies Home Medications Medication Instructions Recorded Confirmed Type flecainide 100 mg tablet 50 mg PO Q12H 03/22/18 07/08/21 History metronidazole 0.75 % topical gel 1 applic TOPICAL BEDTIME PRN 03/22/18 04/14/21 History ResMed AirSense 10 CPAP #1 ea 05/29/18 04/14/21 History cholecalciferol (vitamin D3) 50 2,000 unit PO DAILY 09/28/18 07/08/21 History mcg (2,000 unit) capsule (Vitamin D3) metoprolol succinate 50 mg 50 mg PO DAILY 08/28/19 07/08/21 History tablet,extended release 24 hr aspirin 81 mg tablet,delayed 81 mg PO DAILY 10/30/19 07/08/21 History release (Adult Aspirin Regimen) lisinopril 5 mg tablet 2.5 mg PO DAILY 01/21/21 07/08/21 History tamoxifen 20 mg tablet 20 mg PO DAILY #90 tab 04/02/21 07/08/21 [address] permit #1 ea NS 06/01/21 Rx atorvastatin 20 mg tablet See Rx Instructions .ROUTE 06/02/21 07/08/21 Rx .COMPLEX #90 tab levothyroxine 137 mcg tablet See Rx Instructions .ROUTE 06/25/21 07/08/21 Rx .COMPLEX #90 tab Allergies Allergy/AdvReac Type Severity Reaction Status Date / Time nickel [NICKEL] Allergy Mild RASH Verified 07/08/21 08:51 Review of Systems Review of Systems Narrative: NEGATIVE Exam Vital Signs (past 8 hours): - 07/08/21 09:00 Temperature 97.6 F Pulse Rate 67 Respiratory Rate 16 Blood Pressure 131/80 Pulse Oximetry 99 Oxygen Delivery Method Room Air Narrative Exam Narrative: AWAKE ALERT AND ORIENTED X3, PUPILS EQUAL ROUND REACTIVE TO LIGHT, OROPHARYNX CLEAR, HEART REGULAR RATE AND RHYTHM, LUNGS CLEAR TO AUSCULTATION BILATERALLY, ABDOMEN NONTENDER AND NONDISTENDED, EXTREMITIES WITHOUT EDEMA, NO GROSS NEUROLOGIC DEFICITS NOTED Assessment & Plan Assessment & Plan narrative: HISTORY OF COLON POLYPS FOR COLONOSCOPY WITH POLYPECTOMY IF NEEDED Time Spent With Patient Critical Care time: I spent a total of [] minutes of critical care time on this patient's care today; this time is exclusive of procedural time.
--- NOTE | 2021-07-08 09:51 | PM.OP.COLON ---
Operative Date/Time/Diagnoses Date of procedure: 07/08/21 Procedure & Clinicians Study performed: Colonoscopy with cold biopsy Indications: History of advanced colon polyps, partially resected. Last colonoscopy performed in 2019. Procedure Notes Procedure in detail: Prior to the procedure, history and physical was performed, and patient medications and allergies were reviewed. Preprocedure nursing history and assessment was reviewed. Patient identification and proposed procedure were verified by the physician and nurse in the procedure room. The physical status of the patient was reassessed after the procedure. After informed consent was obtained including risks, benefits, and alternatives, the scope was passed under direct vision. Throughout the procedure, the patient's blood pressure, pulse, and oxygen saturations were monitored continuously. The colonoscope was introduced through the anus and advanced to the cecum as identified by the appendiceal orifice and ileocecal valve. The patient tolerated the procedure well. Bowel prep was deemed adequate to detect polyps greater than 5 mm. Perianal examination and digital rectal examination were unremarkable. Retroflexion in the rectum was unrevealing. There was looping in the sigmoid colon. Advancing the colonoscope to the cecum required manual pressure, repositioning, and a stiffener. Small to medium-sized diverticula were noted throughout the colon. A large tattoo was found in the ascending colon. There was no obvious associated colonic polyp. At the IC valve, there was a sessile polyp who has dimensions could not be fully assessed due to poor scope positioning related to looping and polyps location which was overlying a fold at the IC valve. The polyp was at least 2.5 cm in diameter. It was biopsied with the cold forceps. Complications: other (EBL minimal. No complications) Impression: Pancolonic diverticulosis Ascending colon tattoo Large IC valve polyp measuring at least 2.5 cm. Removal was not attempted due to difficulty positioning endoscope relative to the polyp which was overlying a fold at the IC valve. Prior attempt at endoscopic removal was not successful. Post-procedure Plan for aftercare: Refer to a surgeon for consideration of right hemicolectomy Follow-up pathology results Resume home medications High fiber diet Patient has a contact number available for emergencies. The signs and symptoms of potential delayed complications were discussed with the patient. Return to normal activities tomorrow. Written discharge instructions were provided to the patient. Discharge home with escort
[2021-07-08 09:54] VITALS: BP 94/34; PULSE 63; RESP 20; TEMP 37; O2SAT 97
[2021-07-08 10:00] VITALS: BP 92/38; PULSE 65; RESP 16; O2SAT 97
[2021-07-08 10:05] VITALS: BP 123/58; PULSE 62; RESP 16; O2SAT 99
[2021-07-08 10:10] VITALS: BP 121/96; PULSE 63; RESP 17; O2SAT 100
[2021-07-08 10:15] VITALS: BP 122/56; PULSE 63; RESP 17; O2SAT 100
== END 2021-07-08 10:28 | disposition home or self-care (01) ==
PROVIDERS: PCP Family Medicine; Referring Provider Internal Medicine; Visit Provider Internal Medicine
PROC: 0DJD8ZZ Inspection of Lower Intestinal Tract, Via Natural or Artificial Opening Endoscopic (ICD-10-PCS; CPT 45378; principal; 2021-07-08 09:30)
DX: Z12.11 Encounter for screening for malignant neoplasm of colon (principal); Z86.010 Personal history of colon polyps; I48.91 Unspecified atrial fibrillation; I10 Essential (primary) hypertension; E78.5 Hyperlipidemia, unspecified; E66.9 Obesity, unspecified; G47.30 Sleep apnea, unspecified; D12.0 Benign neoplasm of cecum
CPT/HCPCS: 45380; J2704

== ENCOUNTER → 2021-07-17 17:14 | Outpatient (CLI) | payer OTHER, SELFPAY ==
[2019-07-09 14:33] VITALS: BMI 40.2
--- NOTE | 2021-07-17 17:16 | DI.RAD.S_ITS ---
PROCEDURE: XR KNEE LT 3V INDICATIONS: left knee pain TECHNIQUE: 3 views of the knee were acquired. COMPARISON: None. FINDINGS: Bones: No fractures or dislocations. No suspicious bony lesions. There is moderate medial femorotibial joint space narrowing seen, with associated remodeling changes including subchondral sclerosis and osteophyte formation along the jointline. On the sunrise view, there is moderate lateral patellofemoral joint space narrowing seen. Osteophyte formation can be seen along the margins of the patella. Soft tissues: There is a mild to moderate left knee joint effusion. No suspicious soft tissue calcifications. IMPRESSION: Osteoarthritic degenerative changes are seen, which are most prominent involving the medial femorotibial compartment of the knee. Dictated by: Blas Young M.D. on 07/17/2021 at 16:35 Approved by: Blas Young M.D. on 07/17/2021 at 16:35
== END ==
PROVIDERS: PCP Family Medicine; Referring Provider Physician Assistant; Visit Provider Physician Assistant
DX: M25.562 Pain in left knee (principal)
CPT/HCPCS: 73562

== ENCOUNTER → 2021-08-11 12:06 | Outpatient (CLI) | payer OTHER, SELFPAY ==
[2019-07-09 14:33] VITALS: BMI 40.2
--- NOTE | 2021-08-11 12:09 | DI.CT.S_ITS ---
PROCEDURE: CT CHEST ABD PEL WO CON INDICATIONS: colon polyp and prior lung lesion TECHNIQUE: After the administration of oral contrast, 5 mm thick sections acquired from the lung apices to the symphysis pubis. 5 mm thick coronal and sagittal reformats acquired, with additional 7 mm coronal MIP reformats through the lungs. For radiation dose reduction, the following was used: automated exposure control, adjustment of mA and/or kV according to patient size. COMPARISON: Outside Facility, , CT THORAX/ ABD/ PELVIS WITH CONTRAST, 04/01/2020, 20:16. [facility], CT, CT ABDOMEN WO/W CON, 06/04/2020, 10:24. FINDINGS: Image quality: Excellent. CHEST: Lungs and pleura: There is a 1.3 x 2.1 cm cavitary lesion in the right lower lobe (series 3, image 167). It appears slightly enlarged (previously 1.2 x 1.9 cm on 04/01/2020). There is associated bronchiectasis. More inferior and lateral in the right lower lung base, there is a 1.3 x 2.0 cm subpleural density, new. A 0.7 x 1.3 cm subpleural density is noted posterior to the major fissure in the lateral aspect of the left lower lobe (series 3, image 179), not seen on the last exam, most likely atelectasis. There is a 3 mm nodule in the right upper lobe (series 3 image 113). Dependent atelectasis in right lower lobe. Mild emphysema. No acute pulmonary opacities. No pleural effusions or pneumothorax. Central and peripheral airways are patent are normal in caliber. Mediastinum: Heart size is normal. Mild coronary artery calcification. No pericardial effusion. No mediastinal adenopathy by CT size criteria. Thoracic aorta and central pulmonary arteries are normal in size. Esophagus is normal in caliber. Small hiatal hernia. Chest wall: No axillary or supraclavicular adenopathy by size criteria. Thyroid gland is unremarkable. ABDOMEN: Solid organs: Liver is normal in size. Gallbladder is normal. Pancreas is normal in contours. Spleen is normal in size. No adrenal nodules. Both kidneys are normal in size, without hydronephrosis or nephrolithiasis. Peritoneum and bowel: Small and large bowel loops are normal in caliber and wall thickness. There is a moderate amount of stool in colon. Normal appendix. No free fluid or air. Nodes and vessels: No retroperitoneal or mesenteric adenopathy by size criteria. Aorta and inferior vena cava are normal in size. Miscellaneous: No ventral hernias. PELVIS: Genitourinary: Bladder wall thickness is normal. Uterus is unremarkable. Ovaries are not well seen. No pathological free-fluid in the cul-de-sac. Miscellaneous: No inguinal hernias or adenopathy. Bones: No suspicious bony lesions. No vertebral body compression fractures. Degenerative changes are noted in thoracic and lumbar spine. IMPRESSION: 1. No lymphadenopathy in thorax, abdomen or pelvis. 2. A 1.3 x 2.1 cm cavitary lesion in the right lower lobe with associated bronchiectasis. It appears slightly enlarged when compared to the last exam dated 04/01/2020. A PET-CT is suggested for follow-up. 3. In the lateral aspect of the right lung base, there is a new 1.3 x 2.0 cm subpleural density. This can be evaluated at the same time with PET-CT. 4. A 0.7 x 1.3 cm subpleural density in the left lower lobe. Recommend imaging follow-up. Dictated by: Ivan Barrow M.D. on 08/11/2021 at 17:33 Approved by: Ivan Barrow M.D. on 08/12/2021 at 9:22
[2021-08-11 14:05] LABS: BUN Creatinine Ratio 9.5 (6-22); Blood Urea Nitrogen 18 mg/dL (7-17); Estimated Glomerular Filt Rate 28 mL/min (>60)
== END ==
PROVIDERS: PCP Family Medicine; Referring Provider Surgery; Visit Provider Surgery
DX: R91.8 Other nonspecific abnormal finding of lung field (principal); K63.5 Polyp of colon; E27.8 Other specified disorders of adrenal gland; J47.9 Bronchiectasis, uncomplicated
CPT/HCPCS: 36415; 71250; 74176; 82565; 84520

== ENCOUNTER → 2021-08-24 09:23 | Outpatient (CLI) | payer OTHER, SELFPAY ==
[2019-07-09 14:33] VITALS: BMI 40.2
[2021-08-24 10:31] LABS: COVID19 -Nasal RAPID Negative (Negative)
== END ==
PROVIDERS: PCP Family Medicine; Visit Provider Surgery
DX: Z20.822 Contact with and (suspected) exposure to COVID-19 (principal); Z01.812 Encounter for preprocedural laboratory examination
CPT/HCPCS: 87635; C9803

== ENCOUNTER 2021-08-25 09:12 | Inpatient (IN) | payer OTHER, SELFPAY ==
[2019-07-09 14:33] VITALS: BMI 40.2
[2021-08-19 08:40] VITALS: BMI 38.7
[2021-08-25] VITALS (13 sets, daily range): BP systolic 101–138; BP diastolic 53–88; PULSE 62–72; RESP 12–18; TEMP 35.7–36.8; O2SAT 90–98; BMI 38.7
--- NOTE | 2021-08-25 | PATH_ITS ---
[facility] Accession Number: [id number] . 01 Material submitted: . colon - RIGHT COLON . 01 Diagnosis: Right Colon, Right Hemicolectomy: Tubulovillous adenoma transversing the ileocecal valve, 2.3 cm in greatest dimension. Fibrous obliteration of the tip of the appendix. Negative for high-grade dysplasia or malignancy. All margins free of neoplasm. [facility] 08/28/2021 1226 Local . 01 Electronically signed: . Luis Angel Chou MD, PhD, Pathologist NPI- [id number] . 01 Gross description: . Received in formalin labeled with the patient's name and right colon consists of an ileocecectomy specimen with the attached portion of ileum measuring 2.7 cm in length and 1.2 cm in diameter. The proximal stapled margin measures 1.7 cm in length and is inked blue. The section of colon measures 13.3 cm in length and approximately 3.5 cm in average diameter, and is partially opened longitudinally along the taenia coli. The distal margin is stapled and measures 3.8 cm in length, and is inked black. Attached to the cecum is a vermiform appendix measuring 6.5 cm in length and 0.4 cm in average diameter. The serosa is entirely covered by yellow hemorrhagic adipose, and the apparent mesenteric margin is inked green. Opening the specimen reveals a polypoid nodule located on the cusp of the ileocecal valve measuring 2.3 x 1.2 x 1.2 cm, and is grossly free from all margins. Sectioning the polypoid structure shows the lesion apparently confined to the mucosa and is not extending through the wall. The remaining mucosa is chapa to pink, velvety, and has normal appearing folds with a wall thickness ranging from 0.1 to 0.3 cm. No additional polyps or diverticula are identified. Serial sectioning the appendix reveals an unremarkable pinpoint lumen. No lymph nodes are identified upon palpation. . [employer] sections are submitted as follows: A1: Proximal margin en face. A2: Distal margin en face. A3: Manager Talent mesenteric margin en face. A4-A6: Entire polyp. A7: Normal colon and ileum. A8: Appendix, to include entire bisected distal tip and chain sales representative cross-sections A9: Manager Talent adipose for possible lymph nodes. ([id number]) /MRV 08/26/2021 1116 Local . 01 Pathologist provided ICD-10: D12.0 . 01 CPT . 206254 Specimen Comment: A courtesy copy of this report has been sent to [phone] Performed at: 01 [facility] [address] [place] [address], [place], [place] [id number] MD Yariel Houston MD Phone: [phone]
[2021-08-25 09:57] LABS: Hematocrit 34.9 % (36-46); Hemoglobin 12.1 g/dL (12.0-16.0); Mean Corpuscular HGB Conc 34.6 % (30-36); Mean Corpuscular Hemoglobin 30.3 PG (26-34); Mean Corpuscular Volume 87.4 fL (80-100); Platelet Count 209 X10^3/uL (150-400); Red Cell Distribution Width 13.3 % (11.6-14.8); White Blood Cell Count 7.2 X10^3/uL (4.5-11.0)
[2021-08-25] MEDS: ACETAMINOPHEN IV 1,000 MG/100 ML VIAL 400 MG IV (10:00)
--- NOTE | 2021-08-25 10:01 | PM.HP.1 ---
History of Present Illness History of Present Illness Date Patient Seen: 08/25/21 Time Patient Seen: 10:01 Chief complaint: INPT Narrative: Marifer is a 71-year-old woman who had a colonoscopy in July with finding of a large polyp at the ileocecal valve but could not be completely resected. Biopsy specimens taken from the large polyp showed a tubulovillous adenoma with no high-grade dysplasia. See office note from July for details. Patient History Medical History (Updated 08/19/21 @ 09:13 by Gin Barry RN) Ankle pain (2015) Atrial fibrillation Breast cancer (2015) Chicken pox (~1962) Depression (1997) Dyspepsia Foot pain (2015) Hearing loss Hypothyroidism (1997) Idiopathic colitis Liver laceration (2020) Menopause Mitral regurgitation (05/2014) Morbid obesity with body mass index (BMI) of 40.0 to 49.9 Mumps (~1957) Obstructive sleep apnea (~10/27/09) Pulmonary contusion Right adrenal mass Rosacea (2015) Tinnitus Surgical History (Updated 08/19/21 @ 09:09 by Gin Barry RN) Anesthesia H/O cardiac radiofrequency ablation (~2014) History of bilateral salpingo-oophorectomy (BSO) (11/26/16) History of cardiac radiofrequency ablation (RFA) (01/2015) History of knee replacement (10/04/08) History of lumpectomy of left breast (2015) Status post tubal ligation (1979) Family & Social History Family History Brother Tachycardia Hyperlipidemia Alzheimer's dementia Bladder cancer Father CAD (coronary artery disease) Mother Age: 93 Hypothyroidism DDD (degenerative disc disease) Dementia Grandfather Heart disease Grandmother Heart disease Grandfather No problems noted. Grandmother No problems noted. Social History: household members family Prior Living Arrangements House lives independently Yes caregiver/support person No Safety & Behavioral: Feels Safe in Current Yes Environment Been Physically Hurt or No Threatened By a Person Suicidal Ideation Description None Suicide Plan Description No Plan Tobacco & Substance use: Smoking Status Former smoker alcohol intake never Substance Use Type does not use Meds Home Medications and Allergies Home Medications Medication Instructions Recorded Confirmed Type flecainide 100 mg tablet 50 mg PO Q12H 03/22/18 08/25/21 History metronidazole 0.75 % topical gel 1 applic topical BEDTIME PRN 03/22/18 08/19/21 History ROSACIA ResMed AirSense 10 CPAP #1 ea 05/29/18 07/17/21 History cholecalciferol (vitamin D3) 50 2,000 unit PO DAILY 09/28/18 08/25/21 History mcg (2,000 unit) capsule (Vitamin D3) metoprolol succinate 50 mg 50 mg PO DAILY 08/28/19 08/25/21 History tablet,extended release 24 hr aspirin 81 mg tablet,delayed 81 mg PO DAILY 10/30/19 08/25/21 History release (Adult Aspirin Regimen) lisinopril 5 mg tablet 2.5 mg PO DAILY 01/21/21 08/25/21 History tamoxifen 20 mg tablet 20 mg PO DAILY #90 tabs 04/02/21 08/19/21 Rx disabled [address] permit #1 ea 06/01/21 07/17/21 Rx atorvastatin 20 mg tablet See Rx Instructions .Route 06/02/21 08/25/21 Rx .COMPLEX #90 tabs levothyroxine 137 mcg tablet See Rx Instructions .Route 06/25/21 08/25/21 Rx .COMPLEX #90 tabs metronidazole 500 mg tablet 1,000 mg PO BID #6 tabs 08/05/21 08/19/21 Rx neomycin 500 mg tablet 1 g PO TID 3 doses #6 tabs 08/05/21 08/19/21 Rx Allergies Allergy/AdvReac Type Severity Reaction Status Date / Time nickel [NICKEL] Allergy Mild RASH Verified 07/13/21 09:44 Exam Vital Signs (past 8 hours): - 08/25/21 09:29 Temperature 97.9 F Pulse Rate 72 Respiratory Rate 16 Blood Pressure 138/88 Pulse Oximetry 98 Oxygen Delivery Method Room Air Oxygen Delivery Method Room Air Const General: No acute distress Resp Effort & Inspection: normal respiratory effort GI Palpation: soft Objective Labs Result Diagrams: 08/25/21 09:45 08/25/21 09:45 Labs: Laboratory Results - last 24 hr 08/25/21 09:45 WBC 7.2 RBC 4.00 Hgb 12.1 Hct 34.9 L MCV 87.4 MCH 30.3 MCHC 34.6 RDW 13.3 Plt Count 209 Assessment & Plan Assessment and plan (1) Cecal polyp: Status: Acute Plan We reviewed the risks and benefits of laparoscopic assisted right hemicolectomy. I told her she can expect 3-5 days recovery in the hospital waiting for bowel function. She would like to proceed with surgery. COVID-19 COVID-19 status: Negative Result date/Date tested (Pos, Neg/Pending): 08/24/21 Time Spent With Patient Critical Care time: I spent a total of [] minutes of critical care time on this patient's care today; this time is exclusive of procedural time.
[2021-08-25] MEDS: LACTATED RINGERS 1,000 ML 42 ML IV ×2 (10:02→11:59)
[2021-08-25] MEDS: AMPICILLIN/SULBACTAM 3 GM 3 GM in SODIUM CHLORIDE 0.9% 100 ML IV (10:48)
[2021-08-25 11:02] LABS: BUN Creatinine Ratio 10.6 (6-22); Blood Urea Nitrogen 18 mg/dL (7-17); Calcium 8.7 mg/dL (8.4-10.2); Carbon Dioxide 23 mmol/L (22-32); Chloride 105 mmol/L (98-107); Estimated Glomerular Filt Rate 31 mL/min (>60); Glucose 121 mg/dL (80-110); HEMOLYSIS < 15 (0-50); Potassium 3.2 mmol/L (3.4-5.1); Sodium 138 mmol/L (137-145)
--- NOTE | 2021-08-25 11:28 | SUR.OPER ---
Supine on padded OR bed with pink pad underneath patient, head on pillow, right arm secured on padded arm board at <90 degrees abduction, left arm padded and tucked at side, legs uncrossed, safety belt at thigh, tape over blanket over lower legs, foot board in place, gel pad under bilateral heels.
[2021-08-25] MEDS: LIDOCAINE 1% W/EPI 20 ML INJ (11:53)
[2021-08-25] MEDS: BUPIVACAINE 0.5% (PF) VIAL 20 ML INJ (11:54)
[2021-08-25] MEDS: BUPIVACAINE LIPOSOME 266 MG/20 ML VIAL INJ (13:20)
--- NOTE | 2021-08-25 13:50 | P.OP_ITS ---
Operative Date/Time/Diagnoses Date of procedure: 08/25/21 Time of procedure: 13:51 Pre-op diagnosis: Unresectable cecal polyp Post-op diagnosis: same Procedure & Clinicians Procedure: Laparoscopic assisted right hemicolectomy Same procedure as scheduled: Yes Surgeon: Parker Mariee Pharmaceutical Detailer: Aayush Bell Operative Notes Estimated Blood Loss (mL): 50 Procedure in detail: Operation: Laparoscopic assisted right hemicolectomy Surgeon: Kyle OTOOLE Pharmaceutical Detailer: Aayush Bell provided assistance with exposure as well as creation of the anastomosis. Anesthesia: General endotracheal anesthesia The patient is a 71-year-old woman who had an unresectable cecal polyp found on her recent colonoscopy. She was consented for a laparoscopic assisted right hemicolectomy. Unasyn was administered. The patient was brought to the operating room and placed on the table in the supine position. General endotracheal anesthesia was induced. Hayes catheter was placed. The abdomen was prepped and draped in the usual fashion and a time-out was performed. A 1 cm supraumbilical incision was created. Dissection was carried down to the fascia which was scored in the midline with cautery. The peritoneum was pierced with a Peon clamp. A Geovani port was placed and the abdomen was insufflated to 15 mmHg. The camera was inserted and there was no evidence of any injury from the entry. 5 mm ports were placed in the suprapubic position, left lower quadrant, right upper quadrant and subxiphoid position under direct vision. We explored the abdomen. There were no signs cancer in the abdominal cavity. There appeared to be an old tattoo ink spot in the ascending colon. We started by taking down the hepatic flexure using a LigaSure.. We carefully dissected the right transverse mesocolon off of duodenum staying in the natural cleavage plane. We then took down the rest of the right colon in the same plane. We then mobilized the cecum, appendix and the mesentery to the terminal ileum off of the sidewall. Once the bowel was sufficiently mobilized we removed the laparoscopic equipment and created a 6 cm supraumbilical incision. A small Eliu retractor was placed into the wound and the right colon was exteriorized. We then created mesenteric windows along the mesenteric border of terminal ileum and another along the proximal transverse colon just proximal to right branch of the middle colic artery. We then lined up the terminal ileum and transverse colon and a 3-0 silk stitch was placed at the crotch. Laps were placed around the bowel and enterotomies were created. A [id number] functional end-to-end anastomosis was created using the 75 mm linear ITZ stapler with blue loads. The LigaSure was used to take down the mesentery. The ileocolic pedicle was tied with several 0 silk tiesl. Multiple interrupted 3-0 silk sutures were used to imbricate the staple line. The mesenteric defect was closed with a running 2-0 Vicryl. The anastomosis appeared well perfused and patent and allowed to fall back into the right abdomen. We then transition to a clean closure and injected Exparel into the plane above and below the fascia. The fascia was then closed with a running 0 PDS suture. The skin incisions were closed with edgar. EBL: 50 mL Specimen: Terminal ileum and right colon. Post-operative Condition: stable Disposition: PACU
[2021-08-25] MEDS: LACTATED RINGERS 1,000 ML 100 ML IV (17:23)
[2021-08-25] MEDS: POTASSIUM CHLORIDE 20 MEQ TAB 40 MEQ PO (18:09)
[2021-08-25] MEDS: HYDROCODONE/ACET 5/325 TABLET 1 TAB PO (21:56)
[2021-08-25] MEDS: FLECAINIDE 100 MG TABLET 50 MG PO (21:56)
[2021-08-26] VITALS (8 sets, daily range): BP systolic 95–125; BP diastolic 40–61; PULSE 66–74; RESP 16; TEMP 36.4–36.9; O2SAT 93–97
[2021-08-26] MEDS: LACTATED RINGERS 1,000 ML 100 ML IV (03:50)
[2021-08-26] MEDS: HYDROCODONE/ACET 5/325 TABLET 1 TAB PO ×4 (04:41→22:37)
[2021-08-26] MEDS: LEVOTHYROXINE 137 MCG TABLET PO (05:41)
[2021-08-26 06:39] LABS: Add Manual Diff / Slide Review NO; Basophils Absolute Auto 0 /uL (0-100); Basophils Percent Auto 0.2 % (0-2); Eosinophils Absolute Auto 0 /uL (0-450); Hematocrit 30.6 % (36-46); Hemoglobin 10.6 g/dL (12.0-16.0); Lymphocytes Absolute Auto 900 /uL (1100-4500); Lymphocytes Percent Auto 8.3 % (25-40); Mean Corpuscular HGB Conc 34.5 % (30-36); Mean Corpuscular Hemoglobin 30.1 PG (26-34); Mean Corpuscular Volume 87.1 fL (80-100); Monocytes Absolute Auto 500 /uL (0-900); Monocytes Percent Auto 4.8 % (3-14); Neutrophils Absolute Auto 9700 /uL (1500-7000); Neutrophils Percent Auto 86.7 % (50-75); Platelet Count 171 X10^3/uL (150-400); Red Blood Cell Count 3.52 X10^6/uL (4.0-5.2); Red Cell Distribution Width 13.3 % (11.6-14.8); White Blood Cell Count 11.2 X10^3/uL (4.5-11.0)
[2021-08-26 06:50] LABS: BUN Creatinine Ratio 10.1 (6-22); Blood Urea Nitrogen 14 mg/dL (7-17); Calcium 7.8 mg/dL (8.4-10.2); Carbon Dioxide 22 mmol/L (22-32); Chloride 105 mmol/L (98-107); Estimated Glomerular Filt Rate 40 mL/min (>60); Glucose 118 mg/dL (80-110); HEMOLYSIS < 15 (0-50); Potassium 4.5 mmol/L (3.4-5.1); Sodium 135 mmol/L (137-145)
--- NOTE | 2021-08-26 08:57 | P.PN_ITS ---
Subjective Subjective Date Patient Seen: 08/26/21 Time Patient Seen: 08:57 Interval history: No complaints. Tolerating small amounts of clear liquids Exam Vital Signs (past 8 hours): - 08/26/21 04:56 08/26/21 08:00 Temperature 97.5 F L 98.4 F Pulse Rate 66 69 Respiratory Rate 16 16 Blood Pressure 122/60 125/52 L Pulse Oximetry 94 97 Oxygen Delivery Method Nasal Cannula Oxygen Flow Rate 0 Const General: No acute distress Resp Effort & Inspection: normal respiratory effort GI Palpation: soft Objective Labs Result Diagrams: 08/26/21 05:58 08/26/21 05:58 Labs: Laboratory Results - last 24 hr 08/25/21 08/25/21 08/26/21 09:45 09:45 05:58 WBC 7.2 11.2 H D RBC 4.00 3.52 L Hgb 12.1 10.6 L Hct 34.9 L 30.6 L MCV 87.4 87.1 MCH 30.3 30.1 MCHC 34.6 34.5 RDW 13.3 13.3 Plt Count 209 171 Neut % (Auto) 86.7 H Lymph % (Auto) 8.3 L [place] % (Auto) 4.8 Eos % (Auto) 0.0 L Baso % (Auto) 0.2 Neut # (Auto) 9700 H Lymph # (Auto) 900 L [place] # (Auto) 500 Eos # (Auto) 0 Baso # (Auto) 0 Sodium 138 Potassium 3.2 L Chloride 105 Carbon Dioxide 23 BUN 18 H Creatinine 1.70 H Estimated GFR 31 L BUN/Creatinine Ratio 10.6 Glucose 121 H Calcium 8.7 08/26/21 05:58 WBC RBC Hgb Hct MCV MCH MCHC RDW Plt Count Neut % (Auto) Lymph % (Auto) [place] % (Auto) Eos % (Auto) Baso % (Auto) Neut # (Auto) Lymph # (Auto) [place] # (Auto) Eos # (Auto) Baso # (Auto) Sodium 135 L Potassium 4.5 D Chloride 105 Carbon Dioxide 22 BUN 14 Creatinine 1.39 H Estimated GFR 40 L BUN/Creatinine Ratio 10.1 Glucose 118 H Calcium 7.8 L [facility] Medical History (Updated 08/26/21 @ 08:58 by Parker Mariee MD) Ankle pain (2015) Atrial fibrillation Breast cancer (2015) Chicken pox (~1962) Depression (1997) Dyspepsia Foot pain (2015) Hearing loss Hypothyroidism (1997) Idiopathic colitis Liver laceration (2020) Menopause Mitral regurgitation (05/2014) Morbid obesity with body mass index (BMI) of 40.0 to 49.9 Mumps (~1958) Obstructive sleep apnea (~10/27/09) Pulmonary contusion Right adrenal mass Rosacea (2015) Tinnitus Surgical History (Updated 08/19/21 @ 09:09 by Gin Barry RN) Anesthesia H/O cardiac radiofrequency ablation (~2014) History of bilateral salpingo-oophorectomy (BSO) (11/26/16) History of cardiac radiofrequency ablation (RFA) (01/2015) History of knee replacement (10/04/08) History of lumpectomy of left breast (2015) Status post tubal ligation (1979) Family History Brother Tachycardia Hyperlipidemia Alzheimer's dementia Bladder cancer Father CAD (coronary artery disease) Mother Age: 93 Hypothyroidism DDD (degenerative disc disease) Dementia Grandfather Heart disease Grandmother Heart disease Grandfather No problems noted. Grandmother No problems noted. Social History marital status: household members: family lives independently: Yes caregiver/support person: No housing: house Smoking Status: Former smoker second hand exposure: No alcohol intake: never substance use type: does not use Assessment & Plan Assessment and plan (1) Postoperative examination: Status: Acute Plan POD 1 following lap assisted right hemicolectomy DC amaya catheter Out of bed Advance diet to full liq Time Spent With Patient Critical Care time: I spent a total of [] minutes of critical care time on this patient's care today; this time is exclusive of procedural time. Quality VTE Deep Vein Thrombosis/Pulmonary Embolism Present on Admission: No
--- NOTE | 2021-08-26 09:30 | CM.DANOTE ---
JOSE L Note: Payor: [employer] PCP: DREW Belcher Pt is a 71 y.o. F who was admitted to the floor for a right hemicolectomy. Pt had a colonoscopy in July with a large polyp but could not be completely resected. Pt has hx of ankle pain, a fib, breast cancer, and depression. Per MD this morning, pt can have amaya removed and advanced to a full liquid diet. DCP met with pt bedside this morning. Pt sitting up in bed watching TV. DCP introduced herself and role. Per pt, pt lives with her daughter, Shanique, in [place]. Pt states that she is fairly independent prior to hospital admission and uses a cane as needed. Pt states that when she is able to discharge, she will go home and her daughters will be able to take shifts taking care of her. Pt has two other daughters in the area. Pt does not require any needs at this time. White board updated and instructed to call. P: Pt to have amaya removed today and advanced to clear liquid diet. When medically stable, pt to discharge home via daughter POV. Jazmin Alcantara RN/JOSE L Discharge Planning/Care Management CM Discharge Assessment Start: 08/26/21 09:29 Freq: Status: Active Protocol: Document 08/26/21 09:29 AJ (Rec: 08/26/21 09:30 [id number]) Discharge Planning Assessment Assigned Book Jogger Jazmin Alcantara RN/JOSE L Advance Directives? Yes Advance Directives on File Yes History Provided By Patient,Medical Record Prior Living Arrangements House Household Members family Type of transporation used prior to Drives own vehicle admit Independent with ADL's Yes Is patient alert and oriented? Yes Caregiver for Another No DME Already Rented / Owned Cane Barriers to Discharge No Referrals Initiated None needed Additional Comment At this time. Whiteboard Updated in Patient Room with Yes name and ext. # of Book Jogger Comment Instructed to call Review Status In Process Please Provide Date Initial DC 08/26/21 Assessment Was Performed Next Review Type Continued Stay Review Pre-Anesthesia Assessment Start: 08/19/21 08:40 Freq: Status: Active Protocol: Document 08/19/21 08:40 CAB (Rec: 08/19/21 09:29 CAB [id number]) Pre-Anesthesia Assessment PAC Comment Left breast cancer, please do not use for IV, BP. etc Patient Information Reviewed Via Phone Assessment Assessment Completed With Patient Comment COVID screen @ 08/24/21 Primary Care Provider Lily Belcher Seen Specialist in Last 12 Months Yes Specialist Seen General surgeon,Hot Dip Tinning Supervisor, Other Comment Nephrology visit 03/24/21 scanned to record Primary Language Comoran Preferred Language Comoran Fence Maker Required No Height 160.02 cm Weight 99.337 kg Body Mass Index (BMI) 38.7 Hearing Ability Normal Visual Impairment No Limitations Visual Assist None,Magnifying Glass Dentition Type Teeth, Natural Present,Teeth, Broken Hx Anesthesia Reactions No Hx Family Anesthesia Reaction No Hx Malignant Hyperthermia No Hx Blood Transfusions No Hx Blood Transfusion Reaction No Anesthesia Review Requested No Ross Furnace Operator No alcohol intake never Smoking Status Former smoker how long ago did patient quit smoking 1975 Substance Use Type does not use Pain Present Pain Reported Comment Left knee Musculoskeletal Symptoms Abnormal Gait History of Falling (Recent or History of Yes ) Patient is completely paralyzed or No completely immobile Prosthesis or Orthotic Device Cane Mental Status Oriented to own ability Is patient on oxygen? No Does patient have CHILEL/SOB Yes: CHILEL r/t from Afib Hx Sleep Apnea Yes CPAP/BIPAP use prescribed and used routinely Currently Taking a Beta Sacha Yes: Metoprolol Hx Chest Pain Yes: Nothing current Hx SOB Yes: CHILEL r/t from Afib Hx Syncope or Dizziness No Anti-Coagulant Therapy Yes: 81 ASA-pt told ok to continue per surgeon office Has a Commercial Lawn Specialist Yes: Dr. Sterling-last visit 08/28 Cardiac Testing No Hx Pacemaker/ICD No Pacemaker Rep Required? No Comment Cardiac records scanned Diet Type At Home Regular dysphagia No Gastrointestinal Symptoms Reflux Bladder Pattern Urgency Urinary Catheter Present No Hx Urinary Self Catheterization No Diabetes No Patient No Lactating No Hx Drug Resistant Organism No Presence of External or Internal Medical Yes: CPAP, right knee partial Devices prosthesis Have you had any close contact with No someone diagnosed with COVID-19? Received a COVID vaccine? Yes Received all doses? Yes Marital Status / Lives With children Prior Living Arrangements House Number of Floors (Floors) One Floor Support System Child/Children Does the Patient Have Assistance After Yes: Daughter lives w/pt and Surgery can assist with care at DC Patient Discharge Plan Description Return Home Comment Pt advised 2-3 days length of stay per surgeon Feels Safe in Current Environment Yes Been Physically Hurt or Threatened By a No Person in Current Environment Do you have thoughts of harming yourself None or others? Are you currently considering suicide? No Do you have a plan to hurt yourself or No Plan others? Do You Have Any Spiritual Beliefs That No May Affect Your HC Choices? Do You Have Any Cultural Practices That No May Affect Your HC Choices? Comment Adventist Who Can We Speak to About Patient's Care Family, friends Identifying Code for Release of Patient Declines to issue Information Health Care Proxy/Next of Kin Kristin Taveras (daughter) Health Care Proxy Emergency Contact Name Leidy Harris- daughter Emergency Contact Advance Directives? Yes Advance Directives on File Yes Power of Senior Electrical Design Engineer Yes Power of Senior Electrical Design Engineer Name Natalie Taveras- daughter Power of Senior Electrical Design Engineer PAC Instructions Bring CPAP/BIPAP,Durable medical equipment,Medications to take/avoid,Nasal antibiotic ,No ETOH/petroleum product on skin DOS,NPO,Post-op transportation,Sturdy shoes/ comfortable clothes,Do not bring valuables and remove jewelry
[2021-08-26] MEDS: METOPROLOL ER 50 MG TABLET PO (09:49)
[2021-08-26] MEDS: ATORVASTATIN 20 MG TABLET PO (09:50)
[2021-08-26] MEDS: lisinopriL 5 MG TABLET 2.5 MG PO (09:50)
[2021-08-26] MEDS: CHOLECALCIFEROL (VITAMIN D3) 1,000 UNIT TABLET 2000 UNIT PO (09:57)
[2021-08-26] MEDS: FLECAINIDE 100 MG TABLET 50 MG PO ×2 (09:57→21:23)
--- NOTE | 2021-08-26 17:12 | PC.NURSE ---
Satisfactory post op course. Aquacell Dsg to anterior left hip CDI Med x 2 w/ norco for discomfort w/good relief. Ambulated in hallway w/staff w/o incidence. . Call light w/in reach, pt calls appropriately for needs. Continue w\plan of care.
--- NOTE | 2021-08-26 17:25 | PC.NURSE ---
Pt Satisfactory post op course. Lap sites to abdomen w/ small amount shadow drainage. Med x 2 for discomfort w/good relief. Call light w/in reach, pt calls appropriately for needs. Continue w/plan of care.
[2021-08-26] MEDS: SODIUM CHLORIDE 0.9% FLUSH 10 ML IV (22:37)
[2021-08-27] VITALS (9 sets, daily range): BP systolic 100–126; BP diastolic 38–63; PULSE 64–70; RESP 14–18; TEMP 36.3–37; O2SAT 92–96
[2021-08-27] MEDS: LEVOTHYROXINE 137 MCG TABLET PO (06:17)
[2021-08-27] MEDS: lisinopriL 5 MG TABLET 2.5 MG PO (08:58)
[2021-08-27] MEDS: ATORVASTATIN 20 MG TABLET PO (08:59)
[2021-08-27] MEDS: METOPROLOL ER 50 MG TABLET PO (08:59)
[2021-08-27] MEDS: CHOLECALCIFEROL (VITAMIN D3) 1,000 UNIT TABLET 2000 UNIT PO (08:59)
[2021-08-27] MEDS: SODIUM CHLORIDE 0.9% FLUSH 10 ML IV ×2 (09:01→22:01)
--- NOTE | 2021-08-27 09:06 | DIET.CONS2 ---
Dietary Inpatient Consultation Note Admission Date: 08/25/2021 09:12 RD met c pt this am. Pt received [facility] presurgery nutrition visit, has stocked her home with soft protein foods in anticipation of d/c needs. Pt +BM yesterday, little to no nausea, some abd discomfort. Pt walked halls c PT yesterday. Full liquid POs 25% yesterday breakfast and dinner. Pt going slow with PO intake but tolerating. Pt comfortable c nutrition plan for d/c Diet: 08/26/21 Lunch Full Liquid Diet Diet Modifications: Nutrition Percent Meal Consumed 25% 08/26/21 18:21 Percent Meal Consumed 25% 08/26/21 09:14 Electronically Signed by: Graciela Dueñas 08/27/21 09:06 Clinical Dietitian [address] [address]
[2021-08-27] MEDS: FLECAINIDE 100 MG TABLET 50 MG PO ×2 (09:30→20:45)
--- NOTE | 2021-08-27 10:57 | PM.PN.1 ---
Subjective Subjective Date Patient Seen: 08/27/21 Time Patient Seen: 10:57 Interval history: Marifer has passed some gas in the small bowel movement. She has tolerated full liquids and she has been up and walking. Pain is well controlled with oral analgesics. Exam Vital Signs (past 8 hours): - 08/27/21 04:30 08/27/21 07:00 08/27/21 08:58 Temperature 97.4 F L 97.5 F L Pulse Rate 64 68 Respiratory Rate 16 18 Blood Pressure 100/38 L 120/57 L 120/57 L Pulse Oximetry 92 95 Oxygen Flow Rate 0 08/27/21 08:59 08/27/21 10:01 Temperature Pulse Rate Respiratory Rate Blood Pressure 120/57 L 120/57 L Pulse Oximetry Oxygen Flow Rate Oxygen Delivery Method Room Air Oxygen Flow Rate 0 Const General: No acute distress Other: Abdomen is soft Incisions are clean dry and intact Objective Labs Result Diagrams: 08/26/21 05:58 08/26/21 05:58 [facility] Medical History (Updated 08/26/21 @ 08:58 by Parker Mariee MD) Ankle pain (2015) Atrial fibrillation Breast cancer (2015) Chicken pox (~1962) Depression (1997) Dyspepsia Foot pain (2015) Hearing loss Hypothyroidism (1997) Idiopathic colitis Liver laceration (2020) Menopause Mitral regurgitation (05/2014) Morbid obesity with body mass index (BMI) of 40.0 to 49.9 Mumps (~1957) Obstructive sleep apnea (~10/27/09) Pulmonary contusion Right adrenal mass Rosacea (2015) Tinnitus Surgical History (Updated 08/19/21 @ 09:09 by Gin Barry RN) Anesthesia H/O cardiac radiofrequency ablation (~2014) History of bilateral salpingo-oophorectomy (BSO) (11/26/16) History of cardiac radiofrequency ablation (RFA) (01/2015) History of knee replacement (10/04/08) History of lumpectomy of left breast (2015) Status post tubal ligation (1979) Family History Brother Tachycardia Hyperlipidemia Alzheimer's dementia Bladder cancer Father CAD (coronary artery disease) Mother Age: 93 Hypothyroidism DDD (degenerative disc disease) Dementia Grandfather Heart disease Grandmother Heart disease Grandfather No problems noted. Grandmother No problems noted. Social History marital status: household members: family lives independently: Yes caregiver/support person: No housing: house Smoking Status: Former smoker second hand exposure: No alcohol intake: never substance use type: does not use Assessment & Plan Assessment and plan (1) Postoperative examination: Status: Acute Plan Now postoperative day 2 following laparoscopic right hemicolectomy Making good progress and tolerating full liquid diet Advanced to regular diet with anticipation of discharge home tomorrow Time Spent With Patient Critical Care time: I spent a total of [] minutes of critical care time on this patient's care today; this time is exclusive of procedural time. Quality VTE Deep Vein Thrombosis/Pulmonary Embolism Present on Admission: No
[2021-08-27] MEDS: HYDROCODONE/ACET 5/325 TABLET 1 TAB PO ×3 (11:08→20:45)
[2021-08-27] MEDS: ENOXAPARIN 40 MG/0.4 ML SYRINGE SUBCUT (11:50)
--- NOTE | 2021-08-27 11:53 | PC.NURSE ---
Pt having staisfactory post op course. Lap site dsg w/some old drainage noted on middle one Med w/ Reading for discomfort w/good relief. Started Lovenox this afternoon. Call light w/in reach. Pt calls appropriately for needs. Continue w/plan of care.
[2021-08-28] VITALS (7 sets, daily range): BP systolic 101–119; BP diastolic 47–64; PULSE 62–72; RESP 17–18; TEMP 35.9–37.1; O2SAT 94–98
[2021-08-28] MEDS: HYDROCODONE/ACET 5/325 TABLET 1 TAB PO ×2 (00:31→05:09)
[2021-08-28] MEDS: LEVOTHYROXINE 137 MCG TABLET PO (05:14)
--- NOTE | 2021-08-28 07:33 | PC.NURSE ---
Late Entry: Verbal confirmation from JCARLOS Angel, catheter d/c'd on 08/26.
[2021-08-28] MEDS: lisinopriL 5 MG TABLET 2.5 MG PO (08:42)
[2021-08-28] MEDS: METOPROLOL ER 50 MG TABLET PO (08:42)
[2021-08-28] MEDS: ATORVASTATIN 20 MG TABLET PO (08:44)
[2021-08-28] MEDS: CHOLECALCIFEROL (VITAMIN D3) 1,000 UNIT TABLET 2000 UNIT PO (08:44)
[2021-08-28] MEDS: ENOXAPARIN 40 MG/0.4 ML SYRINGE SUBCUT (08:46)
--- NOTE | 2021-08-28 11:25 | PM.PN.1 ---
Subjective Subjective Date Patient Seen: 08/28/21 Time Patient Seen: 11:25 Interval history: Marifer had more abdominal pain last night. No nausea or vomiting. She continues to pass some flatus. Exam Vital Signs (past 8 hours): - 08/28/21 04:10 08/28/21 08:00 08/28/21 08:42 Temperature 97.8 F 97.9 F Pulse Rate 72 67 67 Respiratory Rate 18 18 Blood Pressure 103/64 101/60 101/60 Pulse Oximetry 94 95 Oxygen Flow Rate 0 0 08/28/21 08:42 Temperature Pulse Rate 67 Respiratory Rate Blood Pressure 101/60 Pulse Oximetry Oxygen Flow Rate Oxygen Delivery Method Room Air Oxygen Flow Rate 0 Const General: No acute distress Resp Effort & Inspection: normal respiratory effort GI Palpation: soft Other: Incisions clean dry and intact Objective Labs Result Diagrams: 08/26/21 05:58 08/26/21 05:58 [facility] Medical History (Updated 08/26/21 @ 08:58 by Parker Mariee MD) Ankle pain (2015) Atrial fibrillation Breast cancer (2015) Chicken pox (~1962) Depression (1997) Dyspepsia Foot pain (2015) Hearing loss Hypothyroidism (1997) Idiopathic colitis Liver laceration (2020) Menopause Mitral regurgitation (05/2014) Morbid obesity with body mass index (BMI) of 40.0 to 49.9 Mumps (~1957) Obstructive sleep apnea (~10/27/09) Pulmonary contusion Right adrenal mass Rosacea (2015) Tinnitus Surgical History (Updated 08/19/21 @ 09:09 by Gin Barry RN) Anesthesia H/O cardiac radiofrequency ablation (~2014) History of bilateral salpingo-oophorectomy (BSO) (11/26/16) History of cardiac radiofrequency ablation (RFA) (01/2015) History of knee replacement (10/04/08) History of lumpectomy of left breast (2015) Status post tubal ligation (1979) Family History Brother Tachycardia Hyperlipidemia Alzheimer's dementia Bladder cancer Father CAD (coronary artery disease) Mother Age: 93 Hypothyroidism DDD (degenerative disc disease) Dementia Grandfather Heart disease Grandmother Heart disease Grandfather No problems noted. Grandmother No problems noted. Social History marital status: household members: family lives independently: Yes caregiver/support person: No housing: house Smoking Status: Former smoker second hand exposure: No alcohol intake: never substance use type: does not use Assessment & Plan Assessment and plan (1) Postoperative examination: Status: Acute Plan Suspect her increase in surgical site pain is related to her Exparel wearing off Plan for discharge home tomorrow Time Spent With Patient Critical Care time: I spent a total of [] minutes of critical care time on this patient's care today; this time is exclusive of procedural time. Quality VTE Deep Vein Thrombosis/Pulmonary Embolism Present on Admission: No
[2021-08-28] MEDS: FLECAINIDE 100 MG TABLET 50 MG PO ×2 (12:43→20:11)
[2021-08-28] MEDS: SODIUM CHLORIDE 0.9% FLUSH 10 ML IV ×2 (12:43→20:11)
[2021-08-29] VITALS: BP 108/47; PULSE 69; RESP 18; TEMP 36.7; O2SAT 97
[2021-08-29 03:53] VITALS: BP 110/49; PULSE 63; RESP 18; TEMP 36.7; O2SAT 93
[2021-08-29] MEDS: LEVOTHYROXINE 137 MCG TABLET PO (05:17)
[2021-08-29 08:00] VITALS: BP 111/52; PULSE 64; RESP 16; TEMP 36.9; O2SAT 97
[2021-08-29] MEDS: ATORVASTATIN 20 MG TABLET PO (09:37)
[2021-08-29] MEDS: CHOLECALCIFEROL (VITAMIN D3) 1,000 UNIT TABLET 2000 UNIT PO (09:37)
[2021-08-29] MEDS: lisinopriL 5 MG TABLET 2.5 MG PO (09:38)
[2021-08-29] MEDS: METOPROLOL ER 50 MG TABLET PO (09:38)
[2021-08-29] MEDS: ENOXAPARIN 40 MG/0.4 ML SYRINGE SUBCUT (09:38)
[2021-08-29] MEDS: FLECAINIDE 100 MG TABLET 50 MG PO (09:39)
[2021-08-29] MEDS: SODIUM CHLORIDE 0.9% FLUSH 10 ML IV (09:40)
--- NOTE | 2021-08-29 13:17 | PC.NURSE ---
Discharge: Pt feels ready to d/c to home. D/c instructions reviewed. Rx has been esent. Minimal pain. Incision open to air, no drainage, minimal redness, edgar intact. Questions answered. Pt d/c home via auto with dtr.
--- NOTE | 2021-08-29 18:16 | P.DS_ITS ---
History of Present Illness History of Present Illness Date Patient Seen: 08/29/21 Time Patient Seen: 18:16 Chief complaint: INPT Narrative: 71-year-old woman with an incompletely resected colonic polyp here for elective right hemicolectomy. Discharge Providers Provider Date of admission: 08/25/21 09:12 Discharge Date: 08/29/21 Primary care physician: Lily Belcher MD Consults: 08/25/21 09:53 Consult to Respiratory Therapy Evaluate & Treat Comment: Physician Instructions: Evaluate and treat Discharge provider: Jalen Perales MD Summary Hospital Course Discharge Diagnosis: Status post right hemicolectomy Hospital Course: Patient underwent a laparoscopic assisted right hemicolectomy August 26, 2019 to for a incompletely resected cecal polyp. She did well postoperatively and progressed as expected. At discharge she is afebrile tolerant of a diet and has return of bowel function her pain is well controlled with oral medication. Exam Vital Signs (past 8 hours): Oxygen Delivery Method Room Air Oxygen Flow Rate 0 Narrative Exam Narrative: General adult woman alert oriented no acute distress Chest nonlabored respirations Abdomen soft appropriately tender to palpation. Midline incision is clean dry intact with edgar. Objective Labs Result Diagrams: 08/26/21 05:58 08/26/21 05:58 [facility] Medical History (Updated 08/26/21 @ 08:58 by Parker Mariee MD) Ankle pain (2015) Atrial fibrillation Breast cancer (2015) Chicken pox (~1962) Depression (1997) Dyspepsia Foot pain (2015) Hearing loss Hypothyroidism (1997) Idiopathic colitis Liver laceration (2020) Menopause Mitral regurgitation (05/2014) Morbid obesity with body mass index (BMI) of 40.0 to 49.9 Mumps (~1958) Obstructive sleep apnea (~10/27/09) Pulmonary contusion Right adrenal mass Rosacea (2015) Tinnitus Surgical History (Updated 08/19/21 @ 09:09 by Gin Barry RN) Anesthesia H/O cardiac radiofrequency ablation (~2014) History of bilateral salpingo-oophorectomy (BSO) (11/26/16) History of cardiac radiofrequency ablation (RFA) (01/2015) History of knee replacement (10/04/08) History of lumpectomy of left breast (2015) Status post tubal ligation (1979) Family History Brother Tachycardia Hyperlipidemia Alzheimer's dementia Bladder cancer Father CAD (coronary artery disease) Mother Age: 93 Hypothyroidism DDD (degenerative disc disease) Dementia Grandfather Heart disease Grandmother Heart disease Grandfather No problems noted. Grandmother No problems noted. Social History marital status: household members: family lives independently: Yes caregiver/support person: No housing: house Smoking Status: Former smoker second hand exposure: No alcohol intake: never substance use type: does not use Discharge Plan Discharge Plan Patient Disposition: Home Provider Discharge Comment: No lifting greater than 20 lb for 2 weeks. Leave incisions open to air Discharge orders & Medications Prescriptions: New hydrocodone-acetaminophen 5-325 mg tablet 1 tab PO Q8H PRN (Reason: pain) Qty: 14 0RF Continued metoprolol succinate 50 mg tablet extended release 24 hr 50 mg PO DAILY Label Comments: Takes at bedtime aspirin [Adult Aspirin Regimen] 81 mg tablet,delayed release (DR/EC) 81 mg PO DAILY lisinopril 5 mg tablet 2.5 mg PO DAILY Label Comments: Pt takes at bedtime (DME) disabled parking permit See Rx Instructions .Route .MEDSUPPLY Qty: 1 0RF Rx Instructions: My patient cannot walk 200 feet without stopping to rest or must use assistive device. Walking is severely limited due to arthritic, neurological or orthopedic condition. Uses portable oxygen or walking restricted by lung disease atorvastatin 20 mg tablet See Rx Instructions .ROUTE .COMPLEX Qty: 90 2RF Dose Instruction: Take 1 tablet (20 mg) by mouth every evening Rx Instructions: Take 1 tablet (20 mg) by mouth every evening levothyroxine 137 mcg tablet See Rx Instructions .ROUTE .COMPLEX Qty: 90 2RF Dose Instruction: Take 1 tablet (0.137 mg) by mouth once a day Rx Instructions: Take 1 tablet (0.137 mg) by mouth once a day neomycin 500 mg tablet 1 g PO TID Qty: 6 0RF Rx Instructions: administer at 1 PM, 2 PM, and 11 PM the day prior to surgery metronidazole 500 mg tablet 1,000 mg PO BID Qty: 6 0RF Rx Instructions: Take 2 tabs at 1PM, 2PM and 11PM the day before the surgery tamoxifen 20 mg Tablet 20 mg PO DAILY Qty: 90 3RF flecainide 100 mg tablet 50 mg PO Q12H Label Comments: take 1 tablet by mouth every 12 hours metronidazole 0.75 % Gel 1 applic TOPICAL BEDTIME PRN (Reason: ROSACIA) cholecalciferol (vitamin D3) [Vitamin D3] 2,000 unit Capsule 2,000 unit PO DAILY (DME) ResMed AirSense 10 CPAP Qty: 1 Dose Instruction: As directed Label Comments: Pressure: 9-13 cmH2O DME: [facility] Rx Instructions: As directed Follow up/Referrals: Parker Mariee MD [Physician] - As previously scheduled Diet/Activity/Treatments Diet: Regular Skin/Wound/Dressing Care Report to your healthcare provider any signs of infection, such as:: chills, fever, increased pain, unusual drainage and unusual redness Visit Report/Discharge Packet Instructions: DI for Colectomy, DI for Laparoscopy, How to Prevent Falls, DI for Taking Pain Medication, [facility]: Wound Care Discharge Data Primary Care Provider: Lily Belcher VTE Deep Vein Thrombosis/Pulmonary Embolism Present on Admission: No
== END 2021-08-29 11:30 | disposition home or self-care (01) | DRG 331 ==
PROVIDERS: Anesthesiology; Admitting Provider Surgery; PCP Family Medicine; Referring Provider Surgery; Visit Provider Surgery
PROC: 0DTE0ZZ Resection of Large Intestine, Open Approach (ICD-10-PCS; principal; 2021-08-25 10:15)
DX: D12.0 Benign neoplasm of cecum (principal); I48.0 Paroxysmal atrial fibrillation; E03.9 Hypothyroidism, unspecified; L71.9 Rosacea, unspecified; Z87.891 Personal history of nicotine dependence; Z85.3 Personal history of malignant neoplasm of breast; Z20.822 Contact with and (suspected) exposure to COVID-19
CPT/HCPCS: 36415; 44205; 80048; 85025; 85027; 87635; C9803; C9290; J0131; J0295; J1100; J1170; J1650; J2405; J2704; J3010

== ENCOUNTER → 2021-12-21 08:06 | Outpatient (CLI) | payer OTHER, SELFPAY ==
[2021-08-25 09:16] VITALS: BMI 38.7
--- NOTE | 2021-12-21 08:06 | DI.US.S_ITS ---
PROCEDURE: US THYROID INDICATIONS: FOLLOW UP PET SCAN TECHNIQUE: Real-time scanning was performed of the thyroid gland, with image documentation. COMPARISON: [facility], CT, CT CHEST ABD PEL WO CON, 08/11/2021, 14:00. [facility], NM, NM PET CT FUSION SKULL 2 THIGH, 12/02/2021, 10:08. FINDINGS: Right: Thyroid lobe measures 4.7 x 1.3 x 1.5 cm, and is homogeneous in echotexture. Left: Thyroid lobe measures 5.4 x 1.7 x 1 point cm. Isthmus: 7 mm thick. Nodule number: 1 Location: Left mid thyroid, deep, posteriorly Size: 1.6 x 1.1 x 1.2 cm. Composition: Solid Echogenicity: Hypoechoic Shape: wider than tall. Margins: Smooth Echogenic foci: No definite Total points: 4 ACR TI-RADS category: 4 IMPRESSION: There is a left mid thyroid nodule seen, which corresponds to PET-CT thyroid abnormality. An ultrasound guided thyroid biopsy is recommended, by published criteria. ACR TI-RADS definitions and recommendations: TI-RADS 1 (benign): 0 points. FNA not needed. TI-RADS 2 (not suspicious): 2 points. FNA not needed. TI-RADS 3 (mildly suspicious): 3 points. * FNA if 2.5 cm or larger, follow up if 1.5 cm or larger (at 1, 3, and 5 years). TI-RADS 4 (moderately suspicious): 4-6 points. * FNA if 1.5 cm or larger, follow up if 1 cm or larger (at 1, 2, 3, and 5 years). TI-RADS 5 (highly suspicious): 7 points or more. * FNA if 1 cm or larger, follow up if 0.5 cm or larger (every year for 5 years). Dictated by: Blas Young M.D. on 12/21/2021 at 10:04 Approved by: Blas Young M.D. on 12/21/2021 at 10:06
== END ==
PROVIDERS: PCP Family Medicine; Referring Provider Family Medicine; Visit Provider Family Medicine
DX: E04.1 Nontoxic single thyroid nodule (principal)
CPT/HCPCS: 76536

== ENCOUNTER → 2022-01-07 14:11 | Outpatient (CLI) | payer OTHER, SELFPAY ==
[2021-08-25 09:16] VITALS: BMI 38.7
--- NOTE | 2022-01-07 | PATH_ITS ---
Note [facility] Accession Number: [id number] TESTS RESULT FLAG UNITS REF RANGE LAB Clinician Provided Cytology Information No. of containers..01 Other (Miscellaneous) No. of containers..08 Previously Prepared Cytology Slide Source: LEFT THYROID NODULE MID DIAGNOSIS: LEFT THYROID NODULE MID INCONCLUSIVE. BETHESDA CATEGORY III. ATYPIA OF UNDETERMINED SIGNIFICANCE. MOLECULAR STUDIES PENDING; RESULTS WILL BE REPORTED SEPARATELY. Pathologist ICD10: 01 R89.6 Clinical history: FINDINGS: Right: Thyroid lobe measures 4.7 x 1.3 x 1.5 cm, and is homogeneous in echotexture. Left: Thyroid lobe measures 5.4 x 1.7 x 1 point cm. Isthmus: 7 mm thick. IMPRESSION: There is a left mid thyroid nodule seen, which corresponds to PET-CT thyroid abnormality. An ultrasound guided thyroid biopsy is recommended,by published criteria. Signed out by: Macrina Leon MD, Pathologist NPI- [id number] Performed by: Bridget Fan, Commercial Drone Pilot ([facility]) Gross description: 30 CC, PINK, CLEAR RECIEVED: IN CYTOLYT WITH 9 ALCOHOL FIXED AND 9 QUICK STAINED SLIDES ALSO 1 RNA VIAL WAS RECEIVED. /VDU 01/08/2022 0634 Local FLAG LEGEND: L-Low Normal,H-High Normal,LL-Alert Low,HH-Alert High <-Panic Low,>-Panic High,A-Abnormal,AA-Critical Abnormal Performed at: 01 =[facility] [address] [place] [address], [place] [address] Yariel Houston MD, Performed at: [address] [facility] [address] [place] [address], [place], [place] [id number] MD Yariel Houston MD Phone: [phone]
--- NOTE | 2022-01-07 14:12 | DI.US.S_ITS ---
PROCEDURE: US FINE NEEDLE ASPIRATION INDICATIONS: LEFT MID THYROID NODULE TECHNIQUE: The indications, alternatives, benefits, risks, and complications of the procedure were explained to the patient. Written informed consent was obtained and placed in the chart. The thyroid region was examined sonographically and a site was chosen for ultrasound guided percutaneous sampling. The skin was prepared and draped in the usual fashion, and anesthetized with 1% lidocaine infiltrated from the skin down to the thyroid gland. Multiple passes were then performed, with contents emptied into an appropriate pathology specimen container. A bandage was applied to the area of access at completion of the study. COMPARISON: [facility], US, US THYROID, 12/21/2021, 8:28. FINDINGS: Location(s) of lesion(s) sampled: Left inferior thyroid lobe [place]: 25 gauge hypodermic needles. Number of passes: 9 Medications: 1% lidocaine for local anaesthesia. Complications: None. IMPRESSION: Successful ultrasound-guided thyroid nodule fine needle aspiration, with cytology results pending. Please see chart below for management recommendations based on cytology results. [place] [facility] ReportingRecommendationsNon-diagnostic* Repeat US-guided FNA, with on-site cytology evaluation if possible. * Repeated non-diagnostic nodules without high suspicion US features: close observation vs surgical consult. * Consider surgery if nodule has high suspicion US features, grows >20% in 2 dimensions on followup, or patient has clinical risk factors for malignancy. Benign* If nodule has high suspicion US features: repeat US and FNA within 12 months. * If nodule has low to intermediate suspicion US features: repeat US at 12-24 months. If nodule grows (20% increase in at least 2 dimensions, with minimal increase of 2 mm or >50% change in volume), or development of new suspicious US features, then repeat FNA or continue followup. * If nodule has very low suspicion US features: followup US at >24 months. Atypia of undetermined significance, follicular lesion of undetermined significanceRepeat FNA, molecular testing, followup US, or surgical consult.Follicular neoplasm, suspicious for follicular neoplasmSurgical consult; also consider molecular testing. Suspicious for malignancySurgical consult.MalignantSurgical consult. Dictated by: Ivan Barrow M.D. on 01/07/2022 at 16:56 Approved by: Ivan Barrow M.D. on 01/07/2022 at 16:57
== END ==
PROVIDERS: PCP Family Medicine; Referring Provider Family Medicine; Visit Provider Family Medicine
DX: E04.1 Nontoxic single thyroid nodule (principal)
CPT/HCPCS: 10005

== ENCOUNTER 2022-02-02 05:19 | Observation (INO) | payer OTHER, SELFPAY ==
[2021-08-25 09:16] VITALS: BMI 38.7
[2022-02-02] VITALS (46 sets, daily range): BP systolic 116–168; BP diastolic 60–106; PULSE 65–89; RESP 16–35; TEMP 37–37.2; O2SAT 92–100; BMI 36.1
--- NOTE | 2022-02-02 05:27 | DI.RAD.S_ITS ---
PROCEDURE: XR CHEST 2V INDICATIONS: SOB TECHNIQUE: 2 views of the chest were acquired. COMPARISON: [facility], CR, CHEST 1 VIEW, 09/03/2015, 11:15. [facility], CT, CT CHEST ABD PEL WO CON, 08/11/2021, 14:00. FINDINGS: Surgical changes and devices: None. Lungs and pleura: Lungs are clear. Mild chronic interstitial prominence. No pleural effusions or pneumothorax. Mediastinum: Mediastinal contours are normal. Heart size is normal. Bones and chest wall: No suspicious bony abnormalities. Soft tissues appear unremarkable. IMPRESSION: No acute cardiopulmonary disease. Dictated by: Ivan Barrow M.D. on 02/02/2022 at 8:27 Approved by: Ivan Barrow M.D. on 02/02/2022 at 8:28
--- NOTE | 2022-02-02 05:28 | ED_ITS ---
HPI - SOB/Dyspnea <Jorge L Davila, DO - Last Filed: 02/02/22 22:13> General Chief Complaint: Upper Respiratory Symptoms Stated Complaint: coughing, hard to breath Time Seen by Provider: 02/02/22 05:23 History of Present Illness HPI Narrative: 71-year-old female nonsmoker with history of atrial fibrillation (off anticoagulation for many years), hypertension, cardiac ablation, right lung mass, breast cancer, chronic kidney disease and prior subdural hematoma presents with family in the chief complaint of increasing shortness of breath over the course of the past week. Apparently she was at a family member's birthday green party and multiple people at the green party have fallen ill with cough and fever but most have already improved. She started having increased cough over the past day or 2. She has not had a fever in the past few days. She denies chest pressure or pain. She denies any dizziness, weakness or lightheadedness. She is had no nausea, vomiting or diarrhea but does admittedly have a decreased appetite. She is had no change in urination such as dysuria, frequency or urgency. She denies any new or changed medications. Of note, patient did suffer a traumatic subarachnoid and subdural after a ground level fall initial workup was performed at an outside facility, she did have an MRI to follow-up on its resolution in May of 2020 Related Data Home Medications Medication Instructions Recorded Confirmed flecainide 100 mg tablet 50 mg PO Q12H 03/22/18 02/02/22 metronidazole 0.75 % topical gel 1 applic topical BEDTIME PRN 03/22/18 02/02/22 ROSACIA cholecalciferol (vitamin D3) 50 2,000 unit PO DAILY 09/28/18 02/02/22 mcg (2,000 unit) capsule (Vitamin D3) metoprolol succinate 50 mg 50 mg PO DAILY 08/28/19 02/02/22 tablet,extended release 24 hr aspirin 81 mg tablet,delayed 81 mg PO DAILY 10/30/19 02/02/22 release (Adult Aspirin Regimen) [employer]Med AirSense 10 CPAP #1 ea 10/13/21 Previous Rx's Medication Instructions Recorded tamoxifen 20 mg tablet 20 mg PO DAILY #90 tabs 04/02/[address] #1 ea 06/01/21 atorvastatin 20 mg tablet See Rx Instructions .Route 06/02/21 .COMPLEX #90 tabs lisinopril 5 mg tablet 2.5 mg PO DAILY #45 tabs 09/09/21 levothyroxine 125 mcg tablet 125 mcg PO DAILY #90 tabs 01/19/22 Allergies Allergy/AdvReac Type Severity Reaction Status Date / Time nickel [NICKEL] Allergy Mild RASH Verified 09/30/21 11:48 Review of Systems <Jorge L Davila DO - Last Filed: 02/02/22 22:13> Review of Systems Narrative: GENERAL: See HPI HEENT: Denies sinus pain, ear pain, sore throat, difficulty swallowing, dizzin ess. RESPIRATORY: See HPI CARDIOVASCULAR: Denies chest pain, palpitations, orthopnea, edema, GASTROINTESTINAL: See HPI : Denies dysuria, frequency, incontinence, hematuria, urinary retention. MUSCULOSKELETAL: denies weakness, joint pain, or bony pain SKIN: Denies rash, skin lesions, or other NEUROLOGIC: Denies weakness, headache, numbness, change in speech, confusion, seizures, incoordination. PSYCHIATRIC: No concerning psychosocial issues. 12 point review of systems is negative except for those stated above Patient History <Jorge L Davila DO - Last Filed: 02/02/22 22:13> Medical History Ankle pain (2015) Atrial fibrillation Breast cancer (2015) Chicken pox (~1962) Depression (1997) Dyspepsia Foot pain (2015) Hearing loss Hypothyroidism (1997) Idiopathic colitis Liver laceration (2020) Menopause Mitral regurgitation (05/2014) Morbid obesity with body mass index (BMI) of 40.0 to 49.9 Mumps (~1958) Obstructive sleep apnea (~10/27/09) Pulmonary contusion Right adrenal mass Rosacea (2015) Tinnitus Surgical History Anesthesia H/O cardiac radiofrequency ablation (~2014) History of bilateral salpingo-oophorectomy (BSO) (11/26/16) History of cardiac radiofrequency ablation (RFA) (01/2015) History of knee replacement (10/04/08) History of lumpectomy of left breast (2015) Status post tubal ligation (1979) Family History Brother Tachycardia Hyperlipidemia Alzheimer's dementia Bladder cancer Father CAD (coronary artery disease) Mother Age: 94 Hypothyroidism DDD (degenerative disc disease) Dementia Grandfather Heart disease Grandmother Heart disease Grandfather No problems noted. Grandmother No problems noted. Social History marital status: household members: family lives independently: Yes caregiver/support person: No housing: house Smoking Status: Former smoker second hand exposure: No alcohol intake: never substance use type: does not use Smoking Status: Former smoker Substance Use Type: does not use Exam <Jorge L Davila DO - Last Filed: 02/02/22 22:13> Narrative Exam Narrative: GENERAL: [71] year old patient appears stated age. Well-developed patient, in mild distress. Increased work of breathing, 5 word sentences HEAD: Atraumatic. Normocephalic. EYES: Pupils equal round and reactive. Extraocular motions intact. No scleral icterus. No injection or drainage. ENT: Nose without bleeding, purulent drainage. Throat without erythema, tonsillar hypertrophy or exudate. Airway patent. NECK: Trachea midline. Non tender CARDIOVASCULAR: Regular rate and rhythm without murmurs, gallops, or rubs. RESPIRATORY: Shallow, rapid respirations with coarse lung sounds and expiratory wheeze throughout GASTROINTESTINAL: Abdomen soft, non-tender, nondistended. EXTREMITIES: No edema or joint tenderness. BACK: Nontender without deformity or crepitance. No flank tenderness. NEURO: AOx3. SKIN: No rash or erythema of visible areas Initial Vital Signs Initial Vital Signs: Vital Signs Temperature 98.6 F 02/02/22 05:25 Pulse Rate 80 02/02/22 05:25 Respiratory Rate 27 H 02/02/22 05:25 Blood Pressure 148/81 H 02/02/22 05:25 Pulse Oximetry 94 02/02/22 05:25 Oxygen Delivery Method 02/02/22 05:25 <Jacoby Cristina DO - Last Filed: 02/02/22 15:59> Initial Vital Signs Initial Vital Signs: Vital Signs Temperature 98.6 F 02/02/22 05:25 Pulse Rate 80 02/02/22 05:25 Respiratory Rate 27 H 02/02/22 05:25 Blood Pressure 148/81 H 02/02/22 05:25 Pulse Oximetry 94 02/02/22 05:25 Oxygen Delivery Method 02/02/22 05:25 Course <Jorge L Davila, DO - Last Filed: 02/02/22 22:13> Orders Ordered: Acetaminophen (Acetaminophen 325 Mg Tablet) 650 mg PO Q6H PRN PRN Reason: Fever/Mild Pain (1-3) Last Admin: 02/02/22 17:44 Dose: 650 mg Documented By: CHARLY Apixaban (Apixaban 5 Mg Tablet) 10 mg PO BID [facility] Stop: 02/09/22 09:01 Last Admin: 02/02/22 20:59 Dose: 10 mg Documented By: CHANDLER Aspirin (Aspirin Ec 81 Mg Tablet) 81 mg PO DAILY [facility] Atorvastatin Calcium (Atorvastatin 20 Mg Tablet) 20 mg PO BEDTIME [facility] Last Admin: 02/02/22 20:59 Dose: 20 mg Documented By: CHANDLER Benzonatate (Benzonatate 100 Mg Capsule) 100 mg PO TID PRN PRN Reason: Cough Last Admin: 02/02/22 17:44 Dose: 100 mg Documented By: CHARLY Cyclobenzaprine HCl (Cyclobenzaprine 10 Mg Tablet) 5 mg PO Q8HR PRN PRN Reason: chest wall pain Flecainide Acetate (Flecainide 100 Mg Tablet) 50 mg PO Q12H [facility] Last Admin: 02/02/22 17:44 Dose: 50 mg Documented By: CHARLY Guaifenesin (Guaifenesin Solution 100 Mg/5 Ml Udc) 100 mg PO Q4HR PRN PRN Reason: Cough Last Admin: 02/02/22 17:45 Dose: 100 mg Documented By: CHARLY Sodium Chloride (Normal Saline 0.9%) 1,000 mls @ 100 mls/hr IV CONT [facility] Last Admin: 02/02/22 17:44 Dose: 100 mls/hr Documented By: CHARLY Levothyroxine Sodium (Levothyroxine 125 Mcg Tablet) 125 mcg PO DAILY@0600 [facility] Lisinopril (Lisinopril 5 Mg Tablet) 2.5 mg PO DAILY [facility] Metoprolol Succinate (Metoprolol Er 50 Mg Tablet) 50 mg PO DAILY [facility] Last Admin: 02/02/22 20:59 Dose: 50 mg Documented By: CHANDLER Naloxone HCl (Naloxone 0.4 Mg/Ml Vial) 0.2 mg IV Q2MIN PRN PRN Reason: Opiate Reversal Tamoxifen Citrate (Tamoxifen 10 Mg Tablet) 20 mg PO DAILY [facility] Discontinued Medications Albuterol (Albuterol 2.5 Mg/3 Ml Neb (Adult)) 2.5 mg INH NOW ONE Stop: 02/02/22 10:36 Last Admin: 02/02/22 10:56 Dose: 2.5 mg Documented By: EDITH Apixaban (Apixaban 5 Mg Tablet) 10 mg PO NOW ONE Stop: 02/02/22 13:36 Last Admin: 02/02/22 14:25 Dose: 10 mg Documented By: RB Sodium Chloride (Normal Saline 0.9%) 1,000 mls @ 1,000 mls/hr IV BOLUS ONE Stop: 02/02/22 07:04 Last Infusion: 02/02/22 08:20 Dose: 0 mls/hr Documented By: Admin: 02/02/22 06:19 Dose: 1,000 mls/hr Documented By: MLM Sodium Chloride (Normal Saline 0.9%) 1,000 mls @ 1,000 mls/hr IV BOLUS ONE Stop: 02/02/22 10:07 Last Infusion: 02/02/22 11:19 Dose: 0 mls/hr Documented By: Admin: 02/02/22 09:16 Dose: 1,000 mls/hr Documented By: ABBEY Vital Signs Vital signs: Vital Signs - 8 hr 02/02/22 08:00 02/02/22 08:00 02/02/22 08:30 Temperature Pulse Rate 68 66 Respiratory Rate 21 20 Blood Pressure 124/60 Pulse Oximetry 96 95 Oxygen Delivery Method 02/02/22 08:31 02/02/22 08:31 02/02/22 09:00 Temperature Pulse Rate 66 Respiratory Rate 23 Blood Pressure 125/80 133/68 Pulse Oximetry 95 Oxygen Delivery Method 02/02/22 09:00 02/02/22 09:30 02/02/22 09:30 Temperature Pulse Rate 65 66 Respiratory Rate 19 21 Blood Pressure 137/104 H Pulse Oximetry 93 97 Oxygen Delivery Method 02/02/22 09:45 02/02/22 09:45 02/02/22 10:00 Temperature Pulse Rate 67 Respiratory Rate 22 Blood Pressure 137/95 H 138/81 Pulse Oximetry 96 Oxygen Delivery Method 02/02/22 10:00 02/02/22 10:15 02/02/22 10:15 Temperature Pulse Rate 67 68 Respiratory Rate 22 22 Blood Pressure 132/80 Pulse Oximetry 97 97 Oxygen Delivery Method 02/02/22 10:30 02/02/22 10:31 02/02/22 10:31 Temperature Pulse Rate 89 Respiratory Rate 22 Blood Pressure 140/90 Pulse Oximetry 94 Oxygen Delivery Method 02/02/22 10:45 02/02/22 10:45 02/02/22 11:00 Temperature Pulse Rate 74 80 Respiratory Rate Blood Pressure 155/70 H Pulse Oximetry 97 100 Oxygen Delivery Method 02/02/22 11:01 02/02/22 11:01 02/02/22 11:16 Temperature Pulse Rate 81 80 Respiratory Rate Blood Pressure 166/96 H Pulse Oximetry 100 98 Oxygen Delivery Method 02/02/22 11:16 02/02/22 11:30 02/02/22 11:30 Temperature Pulse Rate 81 Respiratory Rate Blood Pressure 151/74 H 153/76 H Pulse Oximetry 97 Oxygen Delivery Method 02/02/22 11:45 02/02/22 11:45 02/02/22 12:00 Temperature Pulse Rate 80 Respiratory Rate 20 Blood Pressure 139/64 145/71 H Pulse Oximetry 97 Oxygen Delivery Method 02/02/22 12:00 02/02/22 12:15 02/02/22 12:15 Temperature Pulse Rate 82 79 Respiratory Rate Blood Pressure 147/75 H Pulse Oximetry 95 95 Oxygen Delivery Method 02/02/22 12:39 02/02/22 12:40 02/02/22 12:40 Temperature Pulse Rate 87 85 Respiratory Rate 22 Blood Pressure 157/72 H Pulse Oximetry 96 96 Oxygen Delivery Method Room Air 02/02/22 12:45 02/02/22 12:45 02/02/22 13:00 Temperature Pulse Rate 82 Respiratory Rate Blood Pressure 135/66 140/75 Pulse Oximetry 97 Oxygen Delivery Method 02/02/22 13:00 02/02/22 13:24 02/02/22 13:24 Temperature 98.9 F Pulse Rate 79 84 Respiratory Rate 33 H 33 H Blood Pressure 161/75 H Pulse Oximetry 97 97 Oxygen Delivery Method 02/02/22 13:30 02/02/22 13:30 Temperature Pulse Rate 79 Respiratory Rate 29 H Blood Pressure 147/67 H Pulse Oximetry 96 Oxygen Delivery Method <Jacoby Cristina DO - Last Filed: 02/02/22 15:59> Orders Ordered: Acetaminophen (Acetaminophen 325 Mg Tablet) 650 mg PO Q6H PRN PRN Reason: Fever/Mild Pain (1-3) Last Admin: 02/02/22 17:44 Dose: 650 mg Documented By: CHARLY Apixaban (Apixaban 5 Mg Tablet) 10 mg PO BID [facility] Stop: 02/09/22 09:01 Last Admin: 02/02/22 20:59 Dose: 10 mg Documented By: CHANDLER Aspirin (Aspirin Ec 81 Mg Tablet) 81 mg PO DAILY [facility] Atorvastatin Calcium (Atorvastatin 20 Mg Tablet) 20 mg PO BEDTIME [facility] Last Admin: 02/02/22 20:59 Dose: 20 mg Documented By: CHANDLER Benzonatate (Benzonatate 100 Mg Capsule) 100 mg PO TID PRN PRN Reason: Cough Last Admin: 02/02/22 17:44 Dose: 100 mg Documented By: CHARLY Cyclobenzaprine HCl (Cyclobenzaprine 10 Mg Tablet) 5 mg PO Q8HR PRN PRN Reason: chest wall pain Flecainide Acetate (Flecainide 100 Mg Tablet) 50 mg PO Q12H [facility] Last Admin: 02/02/22 17:44 Dose: 50 mg Documented By: CHARLY Guaifenesin (Guaifenesin Solution 100 Mg/5 Ml Udc) 100 mg PO Q4HR PRN PRN Reason: Cough Last Admin: 02/02/22 17:45 Dose: 100 mg Documented By: CHARLY Sodium Chloride (Normal Saline 0.9%) 1,000 mls @ 100 mls/hr IV CONT [facility] Last Admin: 02/02/22 17:44 Dose: 100 mls/hr Documented By: CHARLY Levothyroxine Sodium (Levothyroxine 125 Mcg Tablet) 125 mcg PO DAILY@0600 [facility] Lisinopril (Lisinopril 5 Mg Tablet) 2.5 mg PO DAILY [facility] Metoprolol Succinate (Metoprolol Er 50 Mg Tablet) 50 mg PO DAILY [facility] Last Admin: 02/02/22 20:59 Dose: 50 mg Documented By: CHADNLER Naloxone HCl (Naloxone 0.4 Mg/Ml Vial) 0.2 mg IV Q2MIN PRN PRN Reason: Opiate Reversal Tamoxifen Citrate (Tamoxifen 10 Mg Tablet) 20 mg PO DAILY [facility] Discontinued Medications Albuterol (Albuterol 2.5 Mg/3 Ml Neb (Adult)) 2.5 mg INH NOW ONE Stop: 02/02/22 10:36 Last Admin: 11/29/22 10:56 Dose: 2.5 mg Documented By: EDITH Apixaban (Apixaban 5 Mg Tablet) 10 mg PO NOW ONE Stop: 02/02/22 13:36 Last Admin: 02/02/22 14:25 Dose: 10 mg Documented By: RB Sodium Chloride (Normal Saline 0.9%) 1,000 mls @ 1,000 mls/hr IV BOLUS ONE Stop: 02/02/22 07:04 Last Infusion: 02/02/22 08:20 Dose: 0 mls/hr Documented By: Admin: 02/02/22 06:19 Dose: 1,000 mls/hr Documented By: MLM Sodium Chloride (Normal Saline 0.9%) 1,000 mls @ 1,000 mls/hr IV BOLUS ONE Stop: 02/02/22 10:07 Last Infusion: 02/02/22 11:19 Dose: 0 mls/hr Documented By: Admin: 02/02/22 09:16 Dose: 1,000 mls/hr Documented By: ABBEY Vital Signs Vital signs: Vital Signs - 8 hr 02/02/22 08:00 02/02/22 08:00 02/02/22 08:30 Temperature Pulse Rate 68 66 Respiratory Rate 21 20 Blood Pressure 124/60 Pulse Oximetry 96 95 Oxygen Delivery Method 02/02/22 08:31 02/02/22 08:31 02/02/22 09:00 Temperature Pulse Rate 66 Respiratory Rate 23 Blood Pressure 125/80 133/68 Pulse Oximetry 95 Oxygen Delivery Method 02/02/22 09:00 02/02/22 09:30 02/02/22 09:30 Temperature Pulse Rate 65 66 Respiratory Rate 19 21 Blood Pressure 137/104 H Pulse Oximetry 93 97 Oxygen Delivery Method 02/02/22 09:45 02/02/22 09:45 02/02/22 10:00 Temperature Pulse Rate 67 Respiratory Rate 22 Blood Pressure 137/95 H 138/81 Pulse Oximetry 96 Oxygen Delivery Method 02/02/22 10:00 02/02/22 10:15 02/02/22 10:15 Temperature Pulse Rate 67 68 Respiratory Rate 22 22 Blood Pressure 132/80 Pulse Oximetry 97 97 Oxygen Delivery Method 02/02/22 10:30 02/02/22 10:31 02/02/22 10:31 Temperature Pulse Rate 89 Respiratory Rate 22 Blood Pressure 140/90 Pulse Oximetry 94 Oxygen Delivery Method 02/02/22 10:45 02/02/22 10:45 02/02/22 11:00 Temperature Pulse Rate 74 80 Respiratory Rate Blood Pressure 155/70 H Pulse Oximetry 97 100 Oxygen Delivery Method 02/02/22 11:01 02/02/22 11:01 02/02/22 11:16 Temperature Pulse Rate 81 80 Respiratory Rate Blood Pressure 166/96 H Pulse Oximetry 100 98 Oxygen Delivery Method 02/02/22 11:16 02/02/22 11:30 02/02/22 11:30 Temperature Pulse Rate 81 Respiratory Rate Blood Pressure 151/74 H 153/76 H Pulse Oximetry 97 Oxygen Delivery Method 02/02/22 11:45 02/02/22 11:45 02/02/22 12:00 Temperature Pulse Rate 80 Respiratory Rate 20 Blood Pressure 139/64 145/71 H Pulse Oximetry 97 Oxygen Delivery Method 02/02/22 12:00 02/02/22 12:15 02/02/22 12:15 Temperature Pulse Rate 82 79 Respiratory Rate Blood Pressure 147/75 H Pulse Oximetry 95 95 Oxygen Delivery Method 02/02/22 12:39 02/02/22 12:40 02/02/22 12:40 Temperature Pulse Rate 87 85 Respiratory Rate 22 Blood Pressure 157/72 H Pulse Oximetry 96 96 Oxygen Delivery Method Room Air 02/02/22 12:45 02/02/22 12:45 02/02/22 13:00 Temperature Pulse Rate 82 Respiratory Rate Blood Pressure 135/66 140/75 Pulse Oximetry 97 Oxygen Delivery Method 02/02/22 13:00 02/02/22 13:24 02/02/22 13:24 Temperature 98.9 F Pulse Rate 79 84 Respiratory Rate 33 H 33 H Blood Pressure 161/75 H Pulse Oximetry 97 97 Oxygen Delivery Method 02/02/22 13:30 02/02/22 13:30 Temperature Pulse Rate 79 Respiratory Rate 29 H Blood Pressure 147/67 H Pulse Oximetry 96 Oxygen Delivery Method MDM - SOB/Dyspnea <Jorge L Davila, DO - Last Filed: 02/02/22 22:13> Lab Data Result diagrams: 02/02/22 05:30 02/02/22 11:37 Labs: Lab Results 02/02/22 02/02/22 02/02/22 Range/Units 05:25 05:30 05:30 WBC 9.3 (4.5-11.0) X10^3/uL RBC 4.15 (4.0-5.2) X10^6/uL Hgb 12.3 (12.0-16.0) g/dL Hct 36.3 (36-46) % MCV 87.4 (80-100) fL MCH 29.7 (26-34) PG MCHC 33.9 (30-36) % RDW 13.1 (11.6-14.8) % Plt Count 190 (150-400) X10^3/uL Neut % (Auto) 71.5 (50-75) % Lymph % (Auto) 20.2 L (25-40) % Valley % (Auto) 6.5 (3-14) % Eos % (Auto) 0.3 L (2-4) % Baso % (Auto) 1.5 (0-2) % Neut # (Auto) 6600 (5251-9947) /uL Lymph # (Auto) 1900 (7799-4054) /uL [place] # (Auto) 600 (0-900) /uL Eos # (Auto) 0 (0-450) /uL Baso # (Auto) 100 (0-100) /uL PT (10.1-12.7) SECONDS INR (0.9-1.3) D-Dimer (<500) ng/ml Sodium (137-145) mmol/L Potassium (3.4-5.1) mmol/L Chloride (98-107) mmol/L Carbon Dioxide (22-32) mmol/L BUN (7-17) mg/dL Creatinine (0.52-1.04) mg/dL Estimated GFR (>60) mL/min BUN/Creatinine Ratio (6-22) Glucose (80-110) mg/dL Lactate (0.7-2.1) mmol/L Calcium (8.4-10.2) mg/dL Magnesium (1.6-2.3) mg/dL Total Bilirubin (0.2-1.3) mg/dL AST (14-36) IU/L ALT (<35) IU/L Alkaline Phosphatase (38-126) U/L Total Creatine Kinase (30-135) U/L CK-MB (CK-2) CK-MB (CK-2) Rel Index Troponin I (0.01-0.034) ng/mL NT-Pro-B Natriuret Pep (<125) pg/mL Total Protein (6.3-8.2) g/dL Albumin (3.5-5.0) g/dL Globulin (1.7-4.1) g/dL Albumin/Globulin Ratio (1.0-2.8) Procalcitonin 0.06 (<0.5) ng/mL Urine RBC (0-5/HPF) Urine WBC (0-5/HPF) Ur Squamous Epith Cells (0-5/HPF) Urine Bacteria (None) Urine Yeast (None) Ur Culture Indicated? SARS-CoV-2 (PCR) Negative (Negative) Influenza A (RT-PCR) Flu a positive H (NEGATIVE) Influenza B (RT-PCR) Flu b negative (NEGATIVE) RSV (PCR) Negative (Negative) 02/02/22 02/02/22 02/02/22 Range/Units 05:30 05:30 05:30 WBC (4.5-11.0) X10^3/uL RBC (4.0-5.2) X10^6/uL Hgb (12.0-16.0) g/dL Hct (36-46) % MCV (80-100) fL MCH (26-34) PG MCHC (30-36) % RDW (11.6-14.8) % Plt Count (150-400) X10^3/uL Neut % (Auto) (50-75) % Lymph % (Auto) (25-40) % Valley % (Auto) (3-14) % Eos % (Auto) (2-4) % Baso % (Auto) (0-2) % Neut # (Auto) (3059-7743) /uL Lymph # (Auto) (3967-7893) /uL Valley # (Auto) (0-900) /uL Eos # (Auto) (0-450) /uL Baso # (Auto) (0-100) /uL PT 12.2 (10.1-12.7) SECONDS INR 1.1 (0.9-1.3) D-Dimer 4997 H (<500) ng/ml Sodium 136 L (137-145) mmol/L Potassium 4.1 (3.4-5.1) mmol/L Chloride 103 (98-107) mmol/L Carbon Dioxide 23 (22-32) mmol/L BUN 18 H (7-17) mg/dL Creatinine 1.92 H (0.52-1.04) mg/dL Estimated GFR 27 L (>60) mL/min BUN/Creatinine Ratio 9.4 (6-22) Glucose 124 H (80-110) mg/dL Lactate 0.9 (0.7-2.1) mmol/L Calcium 8.6 (8.4-10.2) mg/dL Magnesium 2.0 (1.6-2.3) mg/dL Total Bilirubin 0.7 (0.2-1.3) mg/dL AST 17 (14-36) IU/L ALT 14 (<35) IU/L Alkaline Phosphatase 65 (38-126) U/L Total Creatine Kinase 21 L (30-135) U/L CK-MB (CK-2) TNP CK-MB (CK-2) Rel Index TNP Troponin I < 0.012 (0.01-0.034) ng/mL NT-Pro-B Natriuret Pep 804 H (<125) pg/mL Total Protein 7.5 (6.3-8.2) g/dL Albumin 3.7 (3.5-5.0) g/dL Globulin 3.8 (1.7-4.1) g/dL Albumin/Globulin Ratio 1.0 (1.0-2.8) Procalcitonin (<0.5) ng/mL Urine RBC (0-5/HPF) Urine WBC (0-5/HPF) Ur Squamous Epith Cells (0-5/HPF) Urine Bacteria (None) Urine Yeast (None) Ur Culture Indicated? SARS-CoV-2 (PCR) (Negative) Influenza A (RT-PCR) (NEGATIVE) Influenza B (RT-PCR) (NEGATIVE) RSV (PCR) (Negative) 02/02/22 02/02/22 02/02/22 Range/Units 08:17 10:30 11:37 WBC (4.5-11.0) X10^3/uL RBC (4.0-5.2) X10^6/uL Hgb (12.0-16.0) g/dL Hct (36-46) % MCV (80-100) fL MCH (26-34) PG MCHC (30-36) % RDW (11.6-14.8) % Plt Count (150-400) X10^3/uL Neut % (Auto) (50-75) % Lymph % (Auto) (25-40) % Valley % (Auto) (3-14) % Eos % (Auto) (2-4) % Baso % (Auto) (0-2) % Neut # (Auto) (5938-9612) /uL Lymph # (Auto) (8967-9096) /uL [place] # (Auto) (0-900) /uL Eos # (Auto) (0-450) /uL Baso # (Auto) (0-100) /uL PT (10.1-12.7) SECONDS INR (0.9-1.3) D-Dimer (<500) ng/ml Sodium 135 L 138 (137-145) mmol/L Potassium 4.3 4.5 (3.4-5.1) mmol/L Chloride 106 107 (98-107) mmol/L Carbon Dioxide 23 22 (22-32) mmol/L BUN 19 H 18 H (7-17) mg/dL Creatinine 1.80 H 1.69 H (0.52-1.04) mg/dL Estimated GFR 29 L 32 L (>60) mL/min BUN/Creatinine Ratio 10.6 10.7 (6-22) Glucose 116 H 111 H (80-110) mg/dL Lactate (0.7-2.1) mmol/L Calcium 7.9 L 7.9 L (8.4-10.2) mg/dL Magnesium (1.6-2.3) mg/dL Total Bilirubin (0.2-1.3) mg/dL AST (14-36) IU/L ALT (<35) IU/L Alkaline Phosphatase (38-126) U/L Total Creatine Kinase (30-135) U/L CK-MB (CK-2) CK-MB (CK-2) Rel Index Troponin I (0.01-0.034) ng/mL NT-Pro-B Natriuret Pep (<125) pg/mL Total Protein (6.3-8.2) g/dL Albumin (3.5-5.0) g/dL Globulin (1.7-4.1) g/dL Albumin/Globulin Ratio (1.0-2.8) Procalcitonin (<0.5) ng/mL Urine RBC 1-5/hpf D (0-5/HPF) Urine WBC 1-5/hpf (0-5/HPF) Ur Squamous Epith Cells 5-10 /hpf H (0-5/HPF) Urine Bacteria Few (2-10) H (None) Urine Yeast 1-5/hpf H (None) Ur Culture Indicated? Specimen cultured SARS-CoV-2 (PCR) (Negative) Influenza A (RT-PCR) (NEGATIVE) Influenza B (RT-PCR) (NEGATIVE) RSV (PCR) (Negative) Urine Dip Bedside Urine Glucose Negative Bedside Urine Bilirubin - Negative Bedside Urine Ketone - Negative Urine Specific [place] 1.025 Bedside Urine Occult Blood +++ Bedside Urine pH 6.0 Bedside Urine Protein + 30 Bedside Urine Urobilinogen - Negative Bedside Urine Nitrite - Negative Bedside Urine Leukocytes + 70 Esterase <Jacoby Cristina DO - Last Filed: 02/02/22 15:59> Medical Records Attestation: I reviewed the patient's medical records. Lab Data Attestation: I reviewed the patient's lab results. Labs: Lab Results 02/02/22 02/02/22 02/02/22 Range/Units 05:25 05:30 05:30 WBC 9.3 (4.5-11.0) X10^3/uL RBC 4.15 (4.0-5.2) X10^6/uL Hgb 12.3 (12.0-16.0) g/dL Hct 36.3 (36-46) % MCV 87.4 (80-100) fL MCH 29.7 (26-34) PG MCHC 33.9 (30-36) % RDW 13.1 (11.6-14.8) % Plt Count 190 (150-400) X10^3/uL Neut % (Auto) 71.5 (50-75) % Lymph % (Auto) 20.2 L (25-40) % Valley % (Auto) 6.5 (3-14) % Eos % (Auto) 0.3 L (2-4) % Baso % (Auto) 1.5 (0-2) % Neut # (Auto) 6600 (7475-9947) /uL Lymph # (Auto) 1900 (3857-5249) /uL Valley # (Auto) 600 (0-900) /uL Eos # (Auto) 0 (0-450) /uL Baso # (Auto) 100 (0-100) /uL PT (10.1-12.7) SECONDS INR (0.9-1.3) D-Dimer (<500) ng/ml Sodium (137-145) mmol/L Potassium (3.4-5.1) mmol/L Chloride (98-107) mmol/L Carbon Dioxide (22-32) mmol/L BUN (7-17) mg/dL Creatinine (0.52-1.04) mg/dL Estimated GFR (>60) mL/min BUN/Creatinine Ratio (6-22) Glucose (80-110) mg/dL Lactate (0.7-2.1) mmol/L Calcium (8.4-10.2) mg/dL Magnesium (1.6-2.3) mg/dL Total Bilirubin (0.2-1.3) mg/dL AST (14-36) IU/L ALT (<35) IU/L Alkaline Phosphatase (38-126) U/L Total Creatine Kinase (30-135) U/L CK-MB (CK-2) CK-MB (CK-2) Rel Index Troponin I (0.01-0.034) ng/mL NT-Pro-B Natriuret Pep (<125) pg/mL Total Protein (6.3-8.2) g/dL Albumin (3.5-5.0) g/dL Globulin (1.7-4.1) g/dL Albumin/Globulin Ratio (1.0-2.8) Procalcitonin 0.06 (<0.5) ng/mL Urine RBC (0-5/HPF) Urine WBC (0-5/HPF) Ur Squamous Epith Cells (0-5/HPF) Urine Bacteria (None) Urine Yeast (None) Ur Culture Indicated? SARS-CoV-2 (PCR) Negative (Negative) Influenza A (RT-PCR) Flu a positive H (NEGATIVE) Influenza B (RT-PCR) Flu b negative (NEGATIVE) RSV (PCR) Negative (Negative) 02/02/22 02/02/22 02/02/22 Range/Units 05:30 05:30 05:30 WBC (4.5-11.0) X10^3/uL RBC (4.0-5.2) X10^6/uL Hgb (12.0-16.0) g/dL Hct (36-46) % MCV (80-100) fL MCH (26-34) PG MCHC (30-36) % RDW (11.6-14.8) % Plt Count (150-400) X10^3/uL Neut % (Auto) (50-75) % Lymph % (Auto) (25-40) % Valley % (Auto) (3-14) % Eos % (Auto) (2-4) % Baso % (Auto) (0-2) % Neut # (Auto) (3908-2611) /uL Lymph # (Auto) (1521-1705) /uL Valley # (Auto) (0-900) /uL Eos # (Auto) (0-450) /uL Baso # (Auto) (0-100) /uL PT 12.2 (10.1-12.7) SECONDS INR 1.1 (0.9-1.3) D-Dimer 4997 H (<500) ng/ml Sodium 136 L (137-145) mmol/L Potassium 4.1 (3.4-5.1) mmol/L Chloride 103 (98-107) mmol/L Carbon Dioxide 23 (22-32) mmol/L BUN 18 H (7-17) mg/dL Creatinine 1.92 H (0.52-1.04) mg/dL Estimated GFR 27 L (>60) mL/min BUN/Creatinine Ratio 9.4 (6-22) Glucose 124 H (80-110) mg/dL Lactate 0.9 (0.7-2.1) mmol/L Calcium 8.6 (8.4-10.2) mg/dL Magnesium 2.0 (1.6-2.3) mg/dL Total Bilirubin 0.7 (0.2-1.3) mg/dL AST 17 (14-36) IU/L ALT 14 (<35) IU/L Alkaline Phosphatase 65 (38-126) U/L Total Creatine Kinase 21 L (30-135) U/L CK-MB (CK-2) TNP CK-MB (CK-2) Rel Index TNP Troponin I < 0.012 (0.01-0.034) ng/mL NT-Pro-B Natriuret Pep 804 H (<125) pg/mL Total Protein 7.5 (6.3-8.2) g/dL Albumin 3.7 (3.5-5.0) g/dL Globulin 3.8 (1.7-4.1) g/dL Albumin/Globulin Ratio 1.0 (1.0-2.8) Procalcitonin (<0.5) ng/mL Urine RBC (0-5/HPF) Urine WBC (0-5/HPF) Ur Squamous Epith Cells (0-5/HPF) Urine Bacteria (None) Urine Yeast (None) Ur Culture Indicated? SARS-CoV-2 (PCR) (Negative) Influenza A (RT-PCR) (NEGATIVE) Influenza B (RT-PCR) (NEGATIVE) RSV (PCR) (Negative) 02/02/22 02/02/22 02/02/22 Range/Units 08:17 10:30 11:37 WBC (4.5-11.0) X10^3/uL RBC (4.0-5.2) X10^6/uL Hgb (12.0-16.0) g/dL Hct (36-46) % MCV (80-100) fL MCH (26-34) PG MCHC (30-36) % RDW (11.6-14.8) % Plt Count (150-400) X10^3/uL Neut % (Auto) (50-75) % Lymph % (Auto) (25-40) % [place] % (Auto) (3-14) % Eos % (Auto) (2-4) % Baso % (Auto) (0-2) % Neut # (Auto) (6622-9528) /uL Lymph # (Auto) (0174-1989) /uL [place] # (Auto) (0-900) /uL Eos # (Auto) (0-450) /uL Baso # (Auto) (0-100) /uL PT (10.1-12.7) SECONDS INR (0.9-1.3) D-Dimer (<500) ng/ml Sodium 135 L 138 (137-145) mmol/L Potassium 4.3 4.5 (3.4-5.1) mmol/L Chloride 106 107 (98-107) mmol/L Carbon Dioxide 23 22 (22-32) mmol/L BUN 19 H 18 H (7-17) mg/dL Creatinine 1.80 H 1.69 H (0.52-1.04) mg/dL Estimated GFR 29 L 32 L (>60) mL/min BUN/Creatinine Ratio 10.6 10.7 (6-22) Glucose 116 H 111 H (80-110) mg/dL Lactate (0.7-2.1) mmol/L Calcium 7.9 L 7.9 L (8.4-10.2) mg/dL Magnesium (1.6-2.3) mg/dL Total Bilirubin (0.2-1.3) mg/dL AST (14-36) IU/L ALT (<35) IU/L Alkaline Phosphatase (38-126) U/L Total Creatine Kinase (30-135) U/L CK-MB (CK-2) CK-MB (CK-2) Rel Index Troponin I (0.01-0.034) ng/mL NT-Pro-B Natriuret Pep (<125) pg/mL Total Protein (6.3-8.2) g/dL Albumin (3.5-5.0) g/dL Globulin (1.7-4.1) g/dL Albumin/Globulin Ratio (1.0-2.8) Procalcitonin (<0.5) ng/mL Urine RBC 1-5/hpf D (0-5/HPF) Urine WBC 1-5/hpf (0-5/HPF) Ur Squamous Epith Cells 5-10 /hpf H (0-5/HPF) Urine Bacteria Few (2-10) H (None) Urine Yeast 1-5/hpf H (None) Ur Culture Indicated? Specimen cultured SARS-CoV-2 (PCR) (Negative) Influenza A (RT-PCR) (NEGATIVE) Influenza B (RT-PCR) (NEGATIVE) RSV (PCR) (Negative) Urine Dip Bedside Urine Glucose Negative Bedside Urine Bilirubin - Negative Bedside Urine Ketone - Negative Urine Specific [place] 1.025 Bedside Urine Occult Blood +++ Bedside Urine pH 6.0 Bedside Urine Protein + 30 Bedside Urine Urobilinogen - Negative Bedside Urine Nitrite - Negative Bedside Urine Leukocytes + [address] scan - head: Radiologist's Impression: [address] [address] [address] Scan Report Signed Patient: Marifer Harris MR#: [id number] : 1950 Acct:[id number] Age/Sex: 71 / F Date of Service: 02/02/22 Loc: ED Accession Number: [id number] ?? Procedure: CT head/brain wo con Ordering Provider: Jorge L Davila D.O. PROCEDURE:? CT HEAD/BRAIN WO CON ? INDICATIONS:? prior SAH/SDH, anticoagulation candidate ? TECHNIQUE:? Noncontrast 4.5 mm thick angled axial sections acquired from the foramen magnum to the vertex, with coronal and sagittal reformats.? For radiation dose reduction, the following was used:? automated exposure control, adjustment of mA and/or kV according to patient size.? ? COMPARISON:? [facility], CT, HEAD WITHOUT CONTRAST, 05/20/2017, 16:38. ? FINDINGS:? Image quality:? Excellent.? ? CSF spaces:? Basal cisterns are patent.? No extra-axial fluid collections.? The ventricles are symmetric in size and shape.? ? Brain:? No intracranial bleeds or masses.? There is mild cerebral volume loss for age, with resultant ventricular and sulcal prominence.? There are moderate periventricular and deep white matter chronic small vessel ischemic changes.? There is intracranial internal carotid artery atherosclerosis.? ? Skull and face:? Calvarium and visualized facial bones appear intact, without suspicious lesions.? ? Sinuses:? Visualized sinuses and mastoids are clear.? ? IMPRESSION:? Macro old ? 1. No acute intracranial abnormalities. ? 2. Cerebral volume loss and chronic microvascular ischemic changes. ? ? No significant discrepancy with the mold shifter radiology preliminary report. ? ? ? Dictated by: Ivan Barrow M.D. on 02/02/2022 at 7:53 ? ? Approved by: Ivan Barrow M.D. on 02/02/2022 at 7:55 US - DVT: Radiologist's Impression: [address] [address] Ultrasound Report Signed Patient: Marifer Harris MR#: [id number] : 1950 Acct:[id number] Age/Sex: 71 / F Date of Service: 02/02/22 Loc: ED Accession Number: [id number] ?? Procedure: US periph venous low extrem bi Ordering Provider: Jorge L Davila D.O. PROCEDURE:? US PERIPH VENOUS LOW EXTREM BI ? INDICATIONS:? lower extremity swelling, critical dimer, SOB ? TECHNIQUE:? Real-time imaging, as well as color and pulse Doppler interrogation, were performed of the deep veins of both legs from the inguinal ligament to the popliteal fossa.? ? COMPARISON:? [facility], , PERIPH.ADDIE EXT BILAT, 05/22/2014, 11:11. ? FINDINGS:? ? Right: The common femoral, femoral and popliteal veins are normally compressible, and free of intraluminal thrombus.? Color and pulse Doppler demonstrate normal phasic intravascular flow.? There is normal augmentation response to distal compression maneuver.? ? Left: The common femoral, femoral and popliteal veins are normally compressible, and free of intraluminal thrombus.? Color and pulse Doppler demonstrate normal phasic intravascular flow.? There is normal augmentation response to distal compression maneuver.? ? ? IMPRESSION:? No DVT in lower extremities. ? ? Dictated by: Ivan Barrow M.D. on 02/02/2022 at 8:19 ? ? Approved by: Ivan Barrow M.D. on 02/02/2022 at 8:20 Chest x-ray: Radiologist's Impression: [place] [address] XRay Report Signed Patient: Marifer Harris MR#: [id number] : 1950 Acct:[id number] Age/Sex: 71 / F Date of Service: 02/02/22 Loc: ED Accession Number: [id number] ?? Procedure: XR chest 2V Ordering Provider: Jorge L Davila D.O. PROCEDURE:? XR CHEST 2V ? INDICATIONS:? SOB ? TECHNIQUE:? 2 views of the chest were acquired.? ? COMPARISON:? [facility], CR, CHEST 1 VIEW, 09/03/2015, 11:15.? [facility], CT, CT CHEST ABD PEL WO CON, 08/11/2021, 14:00. ? FINDINGS:? ? Surgical changes and devices:? None.? ? Lungs and pleura:? Lungs are clear.? Mild chronic interstitial prominence.? No pleural effusions or pneumothorax.? ? Mediastinum:? Mediastinal contours are normal.? Heart size is normal.? ? Bones and chest wall:? No suspicious bony abnormalities.? Soft tissues appear unremarkable.? ? IMPRESSION:? No acute cardiopulmonary disease. ? ? Dictated by: Ivan Barrow M.D. on 02/02/2022 at 8:27 ? ? Approved by: Ivan Barrow M.D. on 02/02/2022 at 8:28 CT scan - chest: Radiologist's Impression: [address] [address] [address] Scan Report Signed Patient: Marifer Harris MR#: [id number] : 1950 Acct:[id number] Age/Sex: 71 / F Date of Service: 02/02/22 Loc: ED Accession Number: [id number] ?? Procedure: CT angio chest PE protocol Ordering Provider: Jacoby Cristina D.O. PROCEDURE:? CT ANGIO CHEST PE PROTOCOL ? INDICATIONS:? Chest pain, shortness of breath, tachycardia ? TECHNIQUE:? After the administration of intravenous contrast, 2 mm thick sections acquired from the pulmonary apices to the posterior costophrenic angles.? 3-dimensional maximum intensity projection (MIP) coronal and sagittal reformats were then acquired through the thorax.? For radiation dose reduction, the following was used:? automated exposure control, adjustment of mA and/or kV according to patient size.? ? COMPARISON:? None. ? FINDINGS:? Image quality:? Excellent.? ? Pulmonary arteries:? There is occlusive expansile embolus in the posterior basal segment right lower lobe pulmonary artery and lateral basal segment right lower lobe pulmonary artery. ? Lungs and pleura:? Question small area of infarct, posterior basal segment right lower lobe.? Patchy atelectasis, right lower lobe.? No pleural effusions or pneumothorax.? Central and peripheral airways are patent.? ? Mediastinum:? Heart size is normal, without pericardial effusion.? No media stinal or hilar adenopathy.? Thoracic aorta is normal in caliber and enhancement.? Esophagus is normal in caliber, without hiatal hernia.? ? Bones and chest wall:? No suspicious bony lesions.? Ribs and thoracic spine appear intact throughout.? Thyroid gland is grossly unremarkable.? No axillary or s upraclavicular adenopathy.? ? Abdomen:? Visualized upper abdominal solid organs appear normal in the early arterial phase of enhancement.? ? IMPRESSION:? ? 1. Acute occlusive pulmonary embolus to posterior basal segment and lateral basal segment right lower lobe pulmonary artery. ? 2. Possible small basilar right pulmonary infarct.? Patchy right basilar atelectasis. ? ? Dictated by: Lasha Looney M.D. on 02/02/2022 at 12:52 ? ? Approved by: Lasha Looney M.D. on 02/02/2022 at 12:55? ECG Data Interpretation: Dr cristina: Received turned over. Reviewed patient's history and physical labs performed up to this point. Patient not hypoxic but is somewhat tachypneic. She is influenza A positive. After 2 L of fluid her GFR improved. We were able to obtain a CT scan which did show right-sided pulmonary embolism. She is intermediate risk on the PESI score. She has had a head bleed in the past but this was a traumatic head bleed. Her CT scan today shows no signs of bleeding. I did discuss the case with Dr. Gomez who is her oncologist who did recommend anticoagulation. Ambulated the patient. She became tachypneic. Oxygen saturations dropped to the low 90s. She became tachycardic and very short of breath. This improved with lying back in bed. Discussed the case with Dr. Belcher who is the patient's primary doctor who will admit for further evaluation and treatment. I did discuss all this with the patient. She expressed understanding and agreement as well. Discharge Plan Departure Patient Disposition: Admitted As Inpatient Clinical Impression: Pulmonary embolism, Influenza A, Dyspnea on exertion, Breast cancer Admit Date/Time: 02/02/22 13:40 Admit Provider: Lily Belcher
[2022-02-02 05:53] LABS: Add Manual Diff / Slide Review NO; Basophils Absolute Auto 100 /uL (0-100); Basophils Percent Auto 1.5 % (0-2); Eosinophils Absolute Auto 0 /uL (0-450); Eosinophils Percent Auto 0.3 % (2-4); Hematocrit 36.3 % (36-46); Hemoglobin 12.3 g/dL (12.0-16.0); Lymphocytes Absolute Auto 1900 /uL (1100-4500); Lymphocytes Percent Auto 20.2 % (25-40); Mean Corpuscular HGB Conc 33.9 % (30-36); Mean Corpuscular Hemoglobin 29.7 PG (26-34); Mean Corpuscular Volume 87.4 fL (80-100); Monocytes Absolute Auto 600 /uL (0-900); Monocytes Percent Auto 6.5 % (3-14); Neutrophils Absolute Auto 6600 /uL (1500-7000); Neutrophils Percent Auto 71.5 % (50-75); Platelet Count 190 X10^3/uL (150-400); Red Blood Cell Count 4.15 X10^6/uL (4.0-5.2); Red Cell Distribution Width 13.1 % (11.6-14.8); White Blood Cell Count 9.3 X10^3/uL (4.5-11.0)
[2022-02-02 05:56] LABS: INR 1.1 (0.9-1.3); Prothrombin Time 12.2 SECONDS (10.1-12.7)
[2022-02-02 05:58] LABS: D Dimer 4997 ng/ml (<500)
[2022-02-02 06:02] LABS: Alanine Aminotransferase 14 IU/L (<35); Albumin 3.7 g/dL (3.5-5.0); Alkaline Phosphatase 65 U/L (38-126); Aspartate Aminotransferase 17 IU/L (14-36); BUN Creatinine Ratio 9.4 (6-22); Bilirubin Total 0.7 mg/dL (0.2-1.3); Blood Urea Nitrogen 18 mg/dL (7-17); Calcium 8.6 mg/dL (8.4-10.2); Carbon Dioxide 23 mmol/L (22-32); Chloride 103 mmol/L (98-107); Creatine Kinase 21 U/L (30-135); Estimated Glomerular Filt Rate 27 mL/min (>60); Globulin 3.8 g/dL (1.7-4.1); Glucose 124 mg/dL (80-110); HEMOLYSIS < 15 (0-50); Potassium 4.1 mmol/L (3.4-5.1); Sodium 136 mmol/L (137-145); Total Protein 7.5 g/dL (6.3-8.2)
[2022-02-02 06:03] LABS: Lactate (Lactic Acid) 0.9 mmol/L (0.7-2.1)
--- NOTE | 2022-02-02 06:06 | DI.US.S_ITS ---
PROCEDURE: US PERIPH VENOUS LOW EXTREM BI INDICATIONS: lower extremity swelling, critical dimer, SOB TECHNIQUE: Real-time imaging, as well as color and pulse Doppler interrogation, were performed of the deep veins of both legs from the inguinal ligament to the popliteal fossa. COMPARISON: [facility], , PERIPH.ADDIE EXT BILAT, 05/22/2014, 11:11. FINDINGS: Right: The common femoral, femoral and popliteal veins are normally compressible, and free of intraluminal thrombus. Color and pulse Doppler demonstrate normal phasic intravascular flow. There is normal augmentation response to distal compression maneuver. Left: The common femoral, femoral and popliteal veins are normally compressible, and free of intraluminal thrombus. Color and pulse Doppler demonstrate normal phasic intravascular flow. There is normal augmentation response to distal compression maneuver. IMPRESSION: No DVT in lower extremities. Dictated by: Ivan Barrow M.D. on 02/02/2022 at 8:19 Approved by: Ivan Barrow M.D. on 02/02/2022 at 8:20
[2022-02-02 06:12] LABS: Influenza A - CEPHEID Flu A POSITIVE (NEGATIVE); Influenza B - CEPHEID Flu B NEGATIVE (NEGATIVE); Respiratory Syncytial Virus Negative (Negative)
--- NOTE | 2022-02-02 06:13 | DI.CT.S_ITS ---
PROCEDURE: CT HEAD/BRAIN WO CON INDICATIONS: prior SAH/SDH, anticoagulation candidate TECHNIQUE: Noncontrast 4.5 mm thick angled axial sections acquired from the foramen magnum to the vertex, with coronal and sagittal reformats. For radiation dose reduction, the following was used: automated exposure control, adjustment of mA and/or kV according to patient size. COMPARISON: [facility], CT, HEAD WITHOUT CONTRAST, 05/20/2017, 16:38. FINDINGS: Image quality: Excellent. CSF spaces: Basal cisterns are patent. No extra-axial fluid collections. The ventricles are symmetric in size and shape. Brain: No intracranial bleeds or masses. There is mild cerebral volume loss for age, with resultant ventricular and sulcal prominence. There are moderate periventricular and deep white matter chronic small vessel ischemic changes. There is intracranial internal carotid artery atherosclerosis. Skull and face: Calvarium and visualized facial bones appear intact, without suspicious lesions. Sinuses: Visualized sinuses and mastoids are clear. IMPRESSION: Macro old 1. No acute intracranial abnormalities. 2. Cerebral volume loss and chronic microvascular ischemic changes. No significant discrepancy with the evening or night nurse supervisor radiology preliminary report. Dictated by: Ivan Barrow M.D. on 02/02/2022 at 7:53 Approved by: Ivan Barrow M.D. on 02/02/2022 at 7:55
[2022-02-02 06:14] LABS: NT-proBNP (BNP-Adult 18+) 804 pg/mL (<125); Troponin I < 0.012 ng/mL (0.01-0.034)
[2022-02-02 06:17] LABS: COVID-19 CEPHEID 4-PLEX PCR Negative (Negative)
[2022-02-02 06:19] LABS: Procalcitonin 0.06 ng/mL (<0.5)
[2022-02-02] MEDS: SODIUM CHLORIDE 0.9% 1,000 ML 1000 ML IV ×2 (06:19→09:16)
--- NOTE | 2022-02-02 07:28 | PC.NURSE ---
This RN's first interaction with pt. Given warm blankets, fluids running, VSS, in no apparent distress.
[2022-02-02 08:53] LABS: BUN Creatinine Ratio 10.6 (6-22); Blood Urea Nitrogen 19 mg/dL (7-17); Calcium 7.9 mg/dL (8.4-10.2); Carbon Dioxide 23 mmol/L (22-32); Chloride 106 mmol/L (98-107); Estimated Glomerular Filt Rate 29 mL/min (>60); Glucose 116 mg/dL (80-110); HEMOLYSIS < 15 (0-50); Potassium 4.3 mmol/L (3.4-5.1); Sodium 135 mmol/L (137-145)
[2022-02-02] MEDS: ALBUTEROL 2.5 MG/3 ML NEB (ADULT) INH (10:56)
[2022-02-02 11:21] LABS: Squamous Epithelial Cell Urine 5-10 /HPF (0-5/HPF)
[2022-02-02 11:22] LABS: WBC Urine 1-5/HPF (0-5/HPF)
[2022-02-02 11:23] LABS: Bacteria Urine Few (2-10); Culture Indicated Urine Specimen Cultured; RBC Urine 1-5/HPF (0-5/HPF)
[2022-02-02 12:04] LABS: BUN Creatinine Ratio 10.7 (6-22); Blood Urea Nitrogen 18 mg/dL (7-17); Calcium 7.9 mg/dL (8.4-10.2); Carbon Dioxide 22 mmol/L (22-32); Chloride 107 mmol/L (98-107); Estimated Glomerular Filt Rate 32 mL/min (>60); Glucose 111 mg/dL (80-110); HEMOLYSIS < 15 (0-50); Potassium 4.5 mmol/L (3.4-5.1); Sodium 138 mmol/L (137-145)
--- NOTE | 2022-02-02 12:28 | DI.CT.S_ITS ---
PROCEDURE: CT ANGIO CHEST PE PROTOCOL INDICATIONS: Chest pain, shortness of breath, tachycardia TECHNIQUE: After the administration of intravenous contrast, 2 mm thick sections acquired from the pulmonary apices to the posterior costophrenic angles. 3-dimensional maximum intensity projection (MIP) coronal and sagittal reformats were then acquired through the thorax. For radiation dose reduction, the following was used: automated exposure control, adjustment of mA and/or kV according to patient size. COMPARISON: None. FINDINGS: Image quality: Excellent. Pulmonary arteries: There is occlusive expansile embolus in the posterior basal segment right lower lobe pulmonary artery and lateral basal segment right lower lobe pulmonary artery. Lungs and pleura: Question small area of infarct, posterior basal segment right lower lobe. Patchy atelectasis, right lower lobe. No pleural effusions or pneumothorax. Central and peripheral airways are patent. Mediastinum: Heart size is normal, without pericardial effusion. No mediastinal or hilar adenopathy. Thoracic aorta is normal in caliber and enhancement. Esophagus is normal in caliber, without hiatal hernia. Bones and chest wall: No suspicious bony lesions. Ribs and thoracic spine appear intact throughout. Thyroid gland is grossly unremarkable. No axillary or supraclavicular adenopathy. Abdomen: Visualized upper abdominal solid organs appear normal in the early arterial phase of enhancement. IMPRESSION: 1. Acute occlusive pulmonary embolus to posterior basal segment and lateral basal segment right lower lobe pulmonary artery. 2. Possible small basilar right pulmonary infarct. Patchy right basilar atelectasis. Dictated by: Lasha Looney M.D. on 02/02/2022 at 12:52 Approved by: Lasha Looney M.D. on 02/02/2022 at 12:55
--- NOTE | 2022-02-02 13:35 | PM.HP.1 ---
History of Present Illness History of Present Illness Chief complaint: coughing, hard to breath Narrative: Pt is a 71yo woman with HTN, hypothyroidism, right sided lung mass, thyroid nodule, hx of atrial fibrillation s/p ablation (not on anticoagulation), hx of breast cancer, CKD, and subdural hematoma in 2020 who presented with increasing SOB. The pt reports that approximately one week ago she began feeling ill. She felt feverish with a cough. She had mild nasal congestion. The fever resolved after 2-3 days, but cough and general fatigue persisted. Around 3 days ago she started to feel SOB, and this has progressively worsened since then. She became significantly SOB yesterday, and came to the ED for evaluation. The pt states it feels like she pulled a muscle in her right side, making it harder for her to take a deep breath. She denies any other chest pain or palpitations. She denies any abdominal pain, diarrhea, constipation, dysuria, ear pain, sore throat. She has been trying to stay hydrated, but knows she isn't drinking as much as usual. She reports that she was feeling well prior to one week ago. In the ER, lab work was completed that showed she was Influenza A positive. WBC count was not significantly elevated. D-dimer was high. Her creatinine was elevated above baseline, and BNP was slightly elevated as well. Chest XR was normal as was lower extremity doppler. Head CT was negative. Chest CT showed pulmonary embolism. The pt was noted to be hemodynamically stable, but tachypneic without significant hypoxia. Patient History Medical History Ankle pain (2015) Atrial fibrillation Breast cancer (2015) Chicken pox (~1962) Depression (1997) Dyspepsia Foot pain (2015) Hearing loss Hypothyroidism (1997) Idiopathic colitis Liver laceration (2020) Menopause Mitral regurgitation (05/2014) Morbid obesity with body mass index (BMI) of 40.0 to 49.9 Mumps (~1957) Obstructive sleep apnea (~10/27/09) Pulmonary contusion Right adrenal mass Rosacea (2015) Tinnitus Surgical History Anesthesia H/O cardiac radiofrequency ablation (~2014) History of bilateral salpingo-oophorectomy (BSO) (11/26/16) History of cardiac radiofrequency ablation (RFA) (01/2015) History of knee replacement (10/04/08) History of lumpectomy of left breast (2015) Status post tubal ligation (1979) Family & Social History Family History Brother Tachycardia Hyperlipidemia Alzheimer's dementia Bladder cancer Father CAD (coronary artery disease) Mother Age: 94 Hypothyroidism DDD (degenerative disc disease) Dementia Grandfather Heart disease Grandmother Heart disease Grandfather No problems noted. Grandmother No problems noted. Social History: household members family lives independently Yes caregiver/support person No Safety & Behavioral: Feels Safe in Current Yes Environment Tobacco & Substance use: Smoking Status Former smoker alcohol intake never Substance Use Type does not use Meds Home Medications and Allergies Home Medications Medication Instructions Recorded Confirmed Type flecainide 100 mg tablet 50 mg PO Q12H 03/22/18 01/05/22 History metronidazole 0.75 % topical gel 1 applic topical BEDTIME PRN 03/22/18 01/05/22 History ROSACIA cholecalciferol (vitamin D3) 50 2,000 unit PO DAILY 09/28/18 01/05/22 History mcg (2,000 unit) capsule (Vitamin D3) metoprolol succinate 50 mg 50 mg PO DAILY 08/28/19 01/05/22 History tablet,extended release 24 hr aspirin 81 mg tablet,delayed 81 mg PO DAILY 10/30/19 01/05/22 History release (Adult Aspirin Regimen) tamoxifen 20 mg tablet 20 mg PO DAILY #90 tabs 04/02/21 01/05/[address] permit #1 ea 06/01/21 09/30/21 Rx atorvastatin 20 mg tablet See Rx Instructions .Route 06/02/21 01/05/22 Rx .COMPLEX #90 tabs lisinopril 5 mg tablet 2.5 mg PO DAILY #45 tabs 09/09/21 01/05/22 Rx ResMed AirSense 10 CPAP #1 ea 10/13/21 History levothyroxine 125 mcg tablet 125 mcg PO DAILY #90 tabs 01/19/22 Rx Allergies Allergy/AdvReac Type Severity Reaction Status Date / Time nickel [NICKEL] Allergy Mild RASH Verified 09/30/21 11:48 Exam Vital Signs (past 8 hours): - 02/02/22 06:00 02/02/22 06:30 02/02/22 07:00 Temperature Pulse Rate 70 71 69 Respiratory Rate 21 22 20 Blood Pressure Pulse Oximetry 94 95 96 Oxygen Delivery Method 02/02/22 07:18 02/02/22 07:18 02/02/22 07:30 Temperature Pulse Rate 88 67 Respiratory Rate 21 22 Blood Pressure 134/80 Pulse Oximetry 95 96 Oxygen Delivery Method 02/02/22 07:31 02/02/22 07:31 02/02/22 08:00 Temperature Pulse Rate 68 Respiratory Rate 19 Blood Pressure 120/71 124/60 Pulse Oximetry 95 Oxygen Delivery Method 02/02/22 08:00 02/02/22 08:30 02/02/22 08:31 Temperature Pulse Rate 68 66 66 Respiratory Rate 21 20 23 Blood Pressure Pulse Oximetry 96 95 95 Oxygen Delivery Method 02/02/22 08:31 02/02/22 09:00 02/02/22 09:00 Temperature Pulse Rate 65 Respiratory Rate 19 Blood Pressure 125/80 133/68 Pulse Oximetry 93 Oxygen Delivery Method 02/02/22 09:30 02/02/22 09:30 02/02/22 09:45 Temperature Pulse Rate 66 Respiratory Rate 21 Blood Pressure 137/104 H 137/95 H Pulse Oximetry 97 Oxygen Delivery Method 02/02/22 09:45 02/02/22 10:00 02/02/22 10:00 Temperature Pulse Rate 67 67 Respiratory Rate 22 22 Blood Pressure 138/81 Pulse Oximetry 96 97 Oxygen Delivery Method 02/02/22 10:15 02/02/22 10:15 02/02/22 10:30 Temperature Pulse Rate 68 Respiratory Rate 22 22 Blood Pressure 132/80 Pulse Oximetry 97 Oxygen Delivery Method 02/02/22 10:31 02/02/22 10:31 02/02/22 10:45 Temperature Pulse Rate 89 74 Respiratory Rate Blood Pressure 140/90 Pulse Oximetry 94 97 Oxygen Delivery Method 02/02/22 10:45 02/02/22 11:00 02/02/22 11:01 Temperature Pulse Rate 80 81 Respiratory Rate Blood Pressure 155/70 H Pulse Oximetry 100 100 Oxygen Delivery Method 02/02/22 11:01 02/02/22 11:16 02/02/22 11:16 Temperature Pulse Rate 80 Respiratory Rate Blood Pressure 166/96 H 151/74 H Pulse Oximetry 98 Oxygen Delivery Method 02/02/22 11:30 02/02/22 11:30 02/02/22 11:45 Temperature Pulse Rate 81 80 Respiratory Rate Blood Pressure 153/76 H Pulse Oximetry 97 97 Oxygen Delivery Method 02/02/22 11:45 02/02/22 12:00 02/02/22 12:00 Temperature Pulse Rate 82 Respiratory Rate 20 Blood Pressure 139/64 145/71 H Pulse Oximetry 95 Oxygen Delivery Method 02/02/22 12:15 02/02/22 12:15 02/02/22 12:39 Temperature Pulse Rate 79 87 Respiratory Rate Blood Pressure 147/75 H Pulse Oximetry 95 96 Oxygen Delivery Method 02/02/22 12:40 02/02/22 12:40 02/02/22 12:45 Temperature Pulse Rate 85 82 Respiratory Rate 22 Blood Pressure 157/72 H Pulse Oximetry 96 97 Oxygen Delivery Method Room Air 02/02/22 12:45 02/02/22 13:00 02/02/22 13:00 Temperature Pulse Rate 79 Respiratory Rate 33 H Blood Pressure 135/66 140/75 Pulse Oximetry 97 Oxygen Delivery Method 02/02/22 13:24 02/02/22 13:24 Temperature 98.9 F Pulse Rate 84 Respiratory Rate 33 H Blood Pressure 161/75 H Pulse Oximetry 97 Oxygen Delivery Method Oxygen Delivery Method Room Air Narrative Exam Narrative: GEN - alert, cooperative and no distress, appears uncomfortably with deep breaths HEENT - normocephalic and atraumatic, sclera white, moist mucus membranes NECK - FROM, no adenopathy HEART - RRR, S1, S2 normal, no S3 or S4, no murmurs LUNGS - symmetric chest rise, no accessory muscles, clear to auscultation bilaterally, poor inspiratory effort secondary to pain CHEST - mild chest wall tenderness over right side ABD - flat, nondistended, normal bowel sounds, soft, nontender and no hepatomegaly, splenomegaly or masses EXT - no cyanosis, clubbing or edema SKIN - no rashes or suspicious lesions NEURO - no gross deficits Objective Labs Result Diagrams: 02/02/22 05:30 02/02/22 11:37 Labs: Laboratory Results - last 24 hr 02/02/22 02/02/22 02/02/22 05:25 05:30 05:30 WBC 9.3 RBC 4.15 Hgb 12.3 Hct 36.3 MCV 87.4 MCH 29.7 MCHC 33.9 RDW 13.1 Plt Count 190 Neut % (Auto) 71.5 Lymph % (Auto) 20.2 L [place] % (Auto) 6.5 Eos % (Auto) 0.3 L Baso % (Auto) 1.5 Neut # (Auto) 6600 Lymph # (Auto) 1900 [place] # (Auto) 600 Eos # (Auto) 0 Baso # (Auto) 100 PT INR D-Dimer Sodium Potassium Chloride Carbon Dioxide BUN Creatinine Estimated GFR BUN/Creatinine Ratio Glucose Lactate Calcium Magnesium Total Bilirubin AST ALT Alkaline Phosphatase Total Creatine Kinase CK-MB (CK-2) CK-MB (CK-2) Rel Index Troponin I NT-Pro-B Natriuret Pep Total Protein Albumin Globulin Albumin/Globulin Ratio Procalcitonin 0.06 Urine RBC Urine WBC Ur Squamous Epith Cells Urine Bacteria Urine Yeast Ur Culture Indicated? SARS-CoV-2 (PCR) Negative Influenza A (RT-PCR) Flu a positive H Influenza B (RT-PCR) Flu b negative RSV (PCR) Negative 02/02/22 02/02/22 02/02/22 05:30 05:30 05:30 WBC RBC Hgb Hct MCV MCH MCHC RDW Plt Count Neut % (Auto) Lymph % (Auto) [place] % (Auto) Eos % (Auto) Baso % (Auto) Neut # (Auto) Lymph # (Auto) [place] # (Auto) Eos # (Auto) Baso # (Auto) PT 12.2 INR 1.1 D-Dimer 4997 H Sodium 136 L Potassium 4.1 Chloride 103 Carbon Dioxide 23 BUN 18 H Creatinine 1.92 H Estimated GFR 27 L BUN/Creatinine Ratio 9.4 Glucose 124 H Lactate 0.9 Calcium 8.6 Magnesium 2.0 Total Bilirubin 0.7 AST 17 ALT 14 Alkaline Phosphatase 65 Total Creatine Kinase 21 L CK-MB (CK-2) TNP CK-MB (CK-2) Rel Index TNP Troponin I < 0.012 NT-Pro-B Natriuret Pep 804 H Total Protein 7.5 Albumin 3.7 Globulin 3.8 Albumin/Globulin Ratio 1.0 Procalcitonin Urine RBC Urine WBC Ur Squamous Epith Cells Urine Bacteria Urine Yeast Ur Culture Indicated? SARS-CoV-2 (PCR) Influenza A (RT-PCR) Influenza B (RT-PCR) RSV (PCR) 1102/02/22 02/02/22 08:17 10:30 11:37 WBC RBC Hgb Hct MCV MCH MCHC RDW Plt Count Neut % (Auto) Lymph % (Auto) [place] % (Auto) Eos % (Auto) Baso % (Auto) Neut # (Auto) Lymph # (Auto) [place] # (Auto) Eos # (Auto) Baso # (Auto) PT INR D-Dimer Sodium 135 L 138 Potassium 4.3 4.5 Chloride 106 107 Carbon Dioxide 23 22 BUN 19 H 18 H Creatinine 1.80 H 1.69 H Estimated GFR 29 L 32 L BUN/Creatinine Ratio 10.6 10.7 Glucose 116 H 111 H Lactate Calcium 7.9 L 7.9 L Magnesium Total Bilirubin AST ALT Alkaline Phosphatase Total Creatine Kinase CK-MB (CK-2) CK-MB (CK-2) Rel Index Troponin I NT-Pro-B Natriuret Pep Total Protein Albumin Globulin Albumin/Globulin Ratio Procalcitonin Urine RBC 1-5/hpf D Urine WBC 1-5/hpf Ur Squamous Epith Cells 5-10 /hpf H Urine Bacteria Few (2-10) H Urine Yeast 1-5/hpf H Ur Culture Indicated? Specimen cultured SARS-CoV-2 (PCR) Influenza A (RT-PCR) Influenza B (RT-PCR) RSV (PCR) Assessment & Plan Assessment & Plan narrative: Pt is a 71yo woman with HTN, hypothyroidism, right sided lung mass, thyroid nodule, hx of atrial fibrillation s/p ablation (not on anticoagulation), hx of breast cancer, CKD, and subdural hematoma in 2020 who presented with increasing SOB. Pt found to have Influenza A as well as a right-sided PE. 1) Pulmonary embolism: No significant hypoxia, no evidence significant heart strain on CT however BNP is slightly elevated. Hemodynamically stable at this time. Possibly a result of Tamoxifen use. - Eliquis started in the ED, will continue for anticoagulation - Echo ordered due to elevated BNP - Monitor status closely for evidence of worsening respiratory status and hemodynamic compromise 2) Influenza A: Pt on approximately day 7 of illness, outside window for Tamiflu. - Cough suppressants - Muscle relaxer prescribe to help with intercostal muscle spasm 3) MAGGY on CKD: Did improve slightly with hydration in the ED - Continue mIVF - Daily BMP 4) HTN: BP slightly elevated, but not to concerning level - Continue Lisinopril, Metoprolol, Atorvastatin 5) Hx of Atrial fibrillation: Currently in sinus rhythm - Continue Flecainide, Aspirin 6) Hx of breast cancer: Dr Gomez aware of admission. Agrees with anticoagulation with hx of subdural hematoma. FEN: Cardiac diet Code: Full DVT ppx: On Eliquis as above Dispo: Pending improvement in respiratory status, completion of work-up as above. Potentially ready for d/c tomorrow but more likely 2 midnights. Time Spent With Patient Critical Care time: I spent a total of [] minutes of critical care time on this patient's care today; this time is exclusive of procedural time.
[2022-02-02] MEDS: APIXABAN 5 MG TABLET 10 MG PO ×2 (14:25→20:59)
--- NOTE | 2022-02-02 16:04 | DI.ECHO.S_ITS ---
[facility] +---------+ [facility] +---------+ : : [address] : : : : [id number] : : : : Phone: [phone]+ Echocardiogram Report + + :Name: YASMEEN LESTER Study Date: 02/02/2022 Height: 63 in : :[facility] ReadingLocation: Weight: 204 lb : : Gender: Female BSA: 2.0 m2 : :: 1950 Age: 71 yrs BP: 168/88 mmHg: :Reason For Study: PULMONARY EMBOLISM : :Ordering Physician: ERIK, : :SAMANTA Performed By: Junie Newby : :Referring: SAMANTA VALENCIA : + + Interpretation Summary 1) Normal left ventricular thickness, size, wall motion, and systolic function (EF 60-65%). 2) Grossly, normal right ventricular size and function. 3) Very mild aortic stenosis (valve area 1.7cm2, mean gradient 7mmHg, severity ratio 0.56). 4) The right ventricular systolic pressure is estimated to be at least 35 mmHg based on an estimated right atrial pressure of 3 mm Hg. 5) Compared to the Echo done 03/24/2016, very mild aortic stenosis is present on this study. Consider repeat echo in 3 years for serial monitor (earlier if otherwise clinically indicated). Procedure: A two-dimensional transthoracic echocardiogram with color flow and Doppler was performed. Comparison is made with the echocardiogram of 03/24/2016. The study quality was technically difficult. A contrast injection of Definity was performed to improve assessment of LV function. Contrast was injected into an intravenous site in the right arm. A total of 2 cc of contrast was given. Parasternal short axis images limited. Patient had difficult taking deep breaths in due to right side pain. The patient was in sinus rhythm with heart rates between 78-103 bpm during the exam. Left Ventricle: The left ventricle is normal in size and wall thickness. The ejection fraction is estimated to be 60-65%. Left ventricular systolic function appears normal without focal wall motion abnormalities. Diastolic parameters suggest a relaxation abnormality of the left ventricle, consistent with probable normal filling pressures. Right Ventricle: The right ventricle is not well visualized. The right ventricle is grossly normal size. The right ventricular systolic function is normal. Atria: The left atrial size is normal. Right atrial size is normal. There is no Doppler evidence for an interatrial shunt. Mitral Valve: The mitral valve is normal in structure and function. There is mild mitral annular calcification. There is trace mitral regurgitation. Aortic Valve: The aortic valve is not well visualized. Very mild aortic stenosis (valve area 1.7cm2, mean gradient 7mmHg, severity ratio 0.56). No aortic regurgitation is present. Tricuspid Valve: The tricuspid valve is normal in structure and function. There is mild tricuspid regurgitation. The right ventricular systolic pressure is estimated to be at least 35 mmHg based on an estimated right atrial pressure of 3 mm Hg. Pulmonic Valve: The pulmonic valve is not well visualized. Great Vessels: The aortic root is normal size. The dimensions of the ascending aorta are normal. The IVC is of normal diameter and collapses greater than 50% with a sniff. This suggests a low right atrial pressure of 3 mm Hg. Pericardium/ Pleura There is no pericardial effusion. There is no pleural effusion. MMode/2D Measurements & Calculations LVIDd: 4.3 cm LVOT diam: 2.0 cm LVIDs: 2.7 cm Ao root diam: 3.0 cm FS: 37.5 % asc Aorta Diam: 3.3 cm IVSd: 0.73 cm LVPWd: 0.90 cm LV stafford. diameter/BSA (cm/m^2): 2.2 LV sys. diameter/BSA (cm/m^2): 1.4 LA A2 area: 19.4 cm2 RA long axis: 4.7 cm LA A4 area: 15.2 cm2 RA area: 15.1 cm2 LA length (vol): 5.5 cm RA vol: 41.2 ml LA vol: 45.7 ml RA : 21.1 ml/m2 LA vol index: 23.5 ml/m2 IVC diam: 1.4 cm RVD1 (basal): 4.2 cm TAPSE: 2.1 cm Doppler Measurements & Calculations Ao V2 max: 169.0 cm/sec LVOT Max Jose: 89.5 cm/sec Ao V2 mean: 130.6 cm/sec LV V1 max P.2 mmHg Ao max P.4 mmHg LV V1 VTI: 18.3 cm Ao mean P.3 mmHg RONN(I,D): 1.8 cm2 Ao V2 VTI: 32.8 cm RONN(V,D): 1.7 cm2 sev ratio: 0.56 RONN indexed to BSA (cm^2/m^2): 0.95 MV E max jose: 79.6 cm/sec TR max jose: 282.6 cm/sec MV A max jose: 82.8 cm/sec TR max P.9 mmHg MV E/A: 0.96 Med Peak E' Jose: 7.1 cm/sec E/E' med: 11.3 Lat Peak E' Jose: 7.9 cm/sec E/E' lat: 10.1 E/e' average: 10.7 MV dec time: 0.22 sec SV(LVOT): 60.5 ml Reading Physician:05:41 PM
[2022-02-02] MEDS: FLECAINIDE 100 MG TABLET 50 MG PO (17:44)
[2022-02-02] MEDS: BENZONATATE 100 MG CAPSULE PO (17:44)
[2022-02-02] MEDS: ACETAMINOPHEN 325 MG TABLET 650 MG PO (17:44)
[2022-02-02] MEDS: SODIUM CHLORIDE 0.9% 1,000 ML 100 ML IV (17:44)
[2022-02-02] MEDS: guaiFENesin Solution 100 MG/5 ML UDC PO (17:45)
[2022-02-02] MEDS: ATORVASTATIN 20 MG TABLET PO (20:59)
[2022-02-02] MEDS: METOPROLOL ER 50 MG TABLET PO (20:59)
[2022-02-03] MEDS: CYCLOBENZAPRINE 10 MG TABLET 5 MG PO (00:43)
[2022-02-03] MEDS: ACETAMINOPHEN 325 MG TABLET 650 MG PO ×2 (00:44→17:23)
[2022-02-03 04:00] VITALS: BP 120/58; PULSE 68; RESP 18; TEMP 36.4; O2SAT 95
[2022-02-03 04:53] LABS: Add Manual Diff / Slide Review NO; Basophils Absolute Auto 0 /uL (0-100); Basophils Percent Auto 0.5 % (0-2); Eosinophils Absolute Auto 0 /uL (0-450); Eosinophils Percent Auto 0.5 % (2-4); Hematocrit 29.9 % (36-46); Hemoglobin 10.2 g/dL (12.0-16.0); Lymphocytes Absolute Auto 1100 /uL (1100-4500); Mean Corpuscular Hemoglobin 29.9 PG (26-34); Monocytes Absolute Auto 500 /uL (0-900); Monocytes Percent Auto 6.8 % (3-14); Neutrophils Absolute Auto 6100 /uL (1500-7000); Neutrophils Percent Auto 78.2 % (50-75); Platelet Count 147 X10^3/uL (150-400); Red Cell Distribution Width 13.5 % (11.6-14.8); White Blood Cell Count 7.8 X10^3/uL (4.5-11.0)
[2022-02-03 05:04] LABS: BUN Creatinine Ratio 9.4 (6-22); Blood Urea Nitrogen 15 mg/dL (7-17); Calcium 7.6 mg/dL (8.4-10.2); Carbon Dioxide 21 mmol/L (22-32); Chloride 109 mmol/L (98-107); Estimated Glomerular Filt Rate 34 mL/min (>60); Glucose 94 mg/dL (80-110); HEMOLYSIS < 15 (0-50); Sodium 135 mmol/L (137-145)
[2022-02-03] MEDS: FLECAINIDE 100 MG TABLET 50 MG PO ×2 (05:25→17:18)
[2022-02-03] MEDS: LEVOTHYROXINE 125 MCG TABLET PO (05:26)
--- NOTE | 2022-02-03 08:28 | P.PN_ITS ---
Subjective Subjective Date Patient Seen: 02/03/22 Interval history: The pt reports that her breathing is only minimally improved. She continues to cough frequently, and still has right sided chest wall pain. She is very fatigued. Exam Vital Signs (past 8 hours): - 02/03/22 04:00 Temperature 97.6 F Pulse Rate 68 Respiratory Rate 18 Blood Pressure 120/58 L Pulse Oximetry 95 Oxygen Delivery Method Room Air Narrative Exam Narrative: Gen: NAD, sitting comfortably in chair, appears fatigued CV: RRR, no murmurs Resp: clear to auscultation bilaterally, no wheezes or crackles Abd: soft, nontender, nondistended Ext: trace edema Objective Labs Result Diagrams: 02/03/22 04:40 02/03/22 04:40 Labs: Laboratory Results - last 24 hr 02/02/22 02/02/22 02/02/22 08:17 10:30 11:37 WBC RBC Hgb Hct MCV MCH MCHC RDW Plt Count Neut % (Auto) Lymph % (Auto) [place] % (Auto) Eos % (Auto) Baso % (Auto) Neut # (Auto) Lymph # (Auto) [place] # (Auto) Eos # (Auto) Baso # (Auto) Sodium 135 L 138 Potassium 4.3 4.5 Chloride 106 107 Carbon Dioxide 23 22 BUN 19 H 18 H Creatinine 1.80 H 1.69 H Estimated GFR 29 L 32 L BUN/Creatinine Ratio 10.6 10.7 Glucose 116 H 111 H Calcium 7.9 L 7.9 L Urine RBC 1-5/hpf D Urine WBC 1-5/hpf Ur Squamous Epith Cells 5-10 /hpf H Urine Bacteria Few (2-10) H Urine Yeast 1-5/hpf H Ur Culture Indicated? Specimen cultured 02/03/22 02/03/22 04:40 04:40 WBC 7.8 RBC 3.40 L Hgb 10.2 L Hct 29.9 L MCV 88.0 MCH 29.9 MCHC 34.0 RDW 13.5 Plt Count 147 L Neut % (Auto) 78.2 H Lymph % (Auto) 14.0 L [place] % (Auto) 6.8 Eos % (Auto) 0.5 L Baso % (Auto) 0.5 Neut # (Auto) 6100 Lymph # (Auto) 1100 [place] # (Auto) 500 Eos # (Auto) 0 Baso # (Auto) 0 Sodium 135 L Potassium 4.0 Chloride 109 H Carbon Dioxide 21 L BUN 15 Creatinine 1.59 H Estimated GFR 34 L BUN/Creatinine Ratio 9.4 Glucose 94 Calcium 7.6 L Urine RBC Urine WBC Ur Squamous Epith Cells Urine Bacteria Urine Yeast Ur Culture Indicated? [facility] Medical History Ankle pain (2015) Atrial fibrillation Breast cancer (2015) Chicken pox (~1962) Depression (1997) Dyspepsia Foot pain (2015) Hearing loss Hypothyroidism (1997) Idiopathic colitis Liver laceration (2020) Menopause Mitral regurgitation (05/2014) Morbid obesity with body mass index (BMI) of 40.0 to 49.9 Mumps (~1957) Obstructive sleep apnea (~10/27/09) Pulmonary contusion Right adrenal mass Rosacea (2015) Tinnitus Surgical History Anesthesia H/O cardiac radiofrequency ablation (~2014) History of bilateral salpingo-oophorectomy (BSO) (11/26/16) History of cardiac radiofrequency ablation (RFA) (01/2015) History of knee replacement (10/04/08) History of lumpectomy of left breast (2015) Status post tubal ligation (1979) Family History Brother Tachycardia Hyperlipidemia Alzheimer's dementia Bladder cancer Father CAD (coronary artery disease) Mother Age: 94 Hypothyroidism DDD (degenerative disc disease) Dementia Grandfather Heart disease Grandmother Heart disease Grandfather No problems noted. Grandmother No problems noted. Social History marital status: household members: family lives independently: Yes caregiver/support person: No housing: house Smoking Status: Former smoker second hand exposure: No alcohol intake: never substance use type: does not use Assessment & Plan Assessment & Plan narrative: Pt is a 71yo woman with HTN, hypothyroidism, right sided lung mass, thyroid nodule, hx of atrial fibrillation s/p ablation (not on anticoagulation), hx of breast cancer, CKD, and subdural hematoma in 2020 who presented with increasing SOB.? Pt found to have Influenza A as well as a right-sided PE. 1)? Pulmonary embolism:? No significant hypoxia, no evidence significant heart strain on CT and echo reassuring. Hemodynamically stable.? Possibly a result of Tamoxifen use. - Eliquis started in the ED, will continue for anticoagulation - Continue to monitor status for evidence of worsening respiratory status and hemodynamic compromise 2)? Influenza A:? Pt on approximately day 8 of illness, outside window for Tamiflu. - Cough suppressants - Muscle relaxer prescribe to help with intercostal muscle spasm 3)? MAGGY on CKD:? Did improve, but still not at baseline. - Continue mIVF - Daily BMP 4)? HTN:? BP stable - Continue Lisinopril, Metoprolol, Atorvastatin 5)? Hx of Atrial fibrillation:? Currently in sinus rhythm - Continue Flecainide, Aspirin 6)? Hx of breast cancer:? Dr Gomez aware of admission.? Agrees with anticoagulation with hx of subdural hematoma. FEN:? Cardiac diet Code:? Full DVT ppx:? On Eliquis as above Dispo:? Pending improvement in respiratory status, stabilization kidney function. Should be ready to d/c home tomorrow. Time Spent With Patient Critical Care time: I spent a total of [] minutes of critical care time on this patient's care today; this time is exclusive of procedural time.
--- NOTE | 2022-02-03 09:07 | PC.NURSE ---
Addendum entered by Shelia Conklin R.N. 02/03/22 13:59: Patient is visiting with her Daughter. called to check up on patient, she will be discharged tomorrow. Original Note: Patient up to the bathroom, she is a sba with iv pole. LS are clear, she is on RA and eating breakfast up in the chair. She has intermittant dry cough, no sputum production. Dr. parisi see patient this morning.
[2022-02-03] MEDS: TAMOXIFEN 10 MG TABLET 20 MG PO (09:16)
[2022-02-03] MEDS: lisinopriL 5 MG TABLET 2.5 MG PO (09:16)
[2022-02-03] MEDS: METOPROLOL ER 50 MG TABLET PO (09:16)
[2022-02-03] MEDS: APIXABAN 5 MG TABLET 10 MG PO ×2 (09:18→21:25)
[2022-02-03] MEDS: ASPIRIN EC 81 MG TABLET PO (09:18)
[2022-02-03 09:21] VITALS: BP 135/70; PULSE 71; RESP 20; O2SAT 95
[2022-02-03 10:21] VITALS: BP 107/72; PULSE 91
--- NOTE | 2022-02-03 11:46 | DIET.CONS2 ---
Dietary Inpatient Consultation Note Admission Date: 02/02/2022 13:40 RD consulted for pt with Influenza A reporting poor appetite. RD met with pt at bedside. Pt reports poor appetite x1-2w but tolerating PO intake while hospitalized, POs 25% this morning. RD to send ONS Ensure Max with meals to support protein and micronutrient needs. Diet: 02/02/22 Dinner Heart Healthy Diet Diet Modifications: Nutrition Percent Meal Consumed 25% 02/03/22 10:02 Electronically Signed by: Graciela Dueñas 02/03/22 11:46 Clinical Dietitian [address] [id number]
--- NOTE | 2022-02-03 11:48 | CM.DANOTE ---
DCP: Case received, EMR reviewed. Unable to meet with patient, for she is in isolation secondary to Influenza A. Attempted to call patient's room with no answer. Completed DCP assessment based upon information currently available. Patient is a 71 year old female who admitted yesterday afternoon to the care of the hospitalist team. PCP: Dr. Belcher. Payer: confirmed: [facility] Advantage. Patient came to the hospital via private vehicle secondary to having increased shortness of breath. Notes indicate that patient was at a family's birthday democrat, and multiple people at the democrat had been ill with coughs and fevers. Patient was diagnosed with Influenza A, and pulmonary embolisim. Have not been able to meet with patient, but notes indicate that patient was with family. She resides here in [place], and daughter, Christine Estrada is main contact. Notes indicate that patient is alert and oriented. P: DCP to continue to follow for any needs. Patient should be able to go home when deemed medically stable. Patito Monroy RN/Granulating Machine Operator Discharge Planning/Care Management CM Discharge Assessment Start: 02/03/22 11:45 Freq: Status: Active Protocol: Document 02/03/22 11:45 (Rec: 02/03/22 11:48 [id number]) Discharge Planning Assessment Assigned Sales Communications Manager Patito Monroy RN/Granulating Machine Operator Advance Directives? Yes Advance Directives on File Yes History Provided By Patient,Medical Record Prior Living Arrangements House Household Members family Type of transporation used prior to Drives own vehicle admit Independent with ADL's Yes Is patient alert and oriented? Yes Caregiver for Another No Barriers to Discharge No Discharge Plan Home Transportation Arrangement Family Referrals Initiated None needed Additional Comment At this time. Whiteboard Updated in Patient Room with No name and ext. # of Sales Communications Manager Comment Patient is in isolation secondary to Influenza A. Review Status In Process Next Review Type Continued Stay Review
[2022-02-03 11:52] VITALS: BP 147/69; PULSE 70; RESP 18; O2SAT 97
[2022-02-03] MEDS: SODIUM CHLORIDE 0.9% 1,000 ML 100 ML IV ×2 (14:12→23:49)
[2022-02-03 17:22] VITALS: BP 136/68; PULSE 73; RESP 20; O2SAT 93
[2022-02-03 20:00] VITALS: BP 124/63; PULSE 67; RESP 14; TEMP 36.7; O2SAT 94
[2022-02-03] MEDS: ATORVASTATIN 20 MG TABLET PO (21:25)
[2022-02-04] MEDS: FLECAINIDE 100 MG TABLET 50 MG PO (04:34)
[2022-02-04] MEDS: LEVOTHYROXINE 125 MCG TABLET PO (04:34)
[2022-02-04 04:45] VITALS: BP 145/74; PULSE 68; RESP 18; TEMP 36.6; O2SAT 95
[2022-02-04 04:48] LABS: Add Manual Diff / Slide Review NO; Basophils Absolute Auto 0 /uL (0-100); Basophils Percent Auto 0.7 % (0-2); Eosinophils Absolute Auto 100 /uL (0-450); Eosinophils Percent Auto 1.6 % (2-4); Hematocrit 30.7 % (36-46); Hemoglobin 10.4 g/dL (12.0-16.0); Lymphocytes Absolute Auto 1200 /uL (1100-4500); Lymphocytes Percent Auto 18.3 % (25-40); Mean Corpuscular HGB Conc 33.8 % (30-36); Mean Corpuscular Hemoglobin 29.7 PG (26-34); Mean Corpuscular Volume 87.9 fL (80-100); Monocytes Absolute Auto 500 /uL (0-900); Monocytes Percent Auto 7.1 % (3-14); Neutrophils Absolute Auto 4700 /uL (1500-7000); Neutrophils Percent Auto 72.3 % (50-75); Platelet Count 178 X10^3/uL (150-400); Red Cell Distribution Width 13.2 % (11.6-14.8); White Blood Cell Count 6.5 X10^3/uL (4.5-11.0)
[2022-02-04 05:00] LABS: BUN Creatinine Ratio 8.7 (6-22); Blood Urea Nitrogen 13 mg/dL (7-17); Calcium 7.6 mg/dL (8.4-10.2); Carbon Dioxide 20 mmol/L (22-32); Chloride 111 mmol/L (98-107); Estimated Glomerular Filt Rate 37 mL/min (>60); Glucose 85 mg/dL (80-110); HEMOLYSIS < 15 (0-50); Potassium 3.9 mmol/L (3.4-5.1); Sodium 135 mmol/L (137-145)
--- NOTE | 2022-02-04 07:43 | P.DS_ITS ---
History of Present Illness History of Present Illness Chief complaint: coughing, hard to breath Discharge Providers Provider Date of admission: 02/02/22 13:40 Discharge Date: 02/04/22 Primary care physician: Lily Belcher MD Consults: 02/02/22 17:24 Consult to Dietitian, Adult Routine Comment: Reason For Exam: pt. states she has lost ~ 30lbs over last 6 months Discharge provider: David Stephen MD Summary Hospital Course Discharge Diagnosis: Acute pulmonary emboli Acute influenza A Acute kidney injury on chronic kidney disease Hypertension History of atrial fibrillation History of breast cancer Remote history of subdural hematoma Hospital Course: Patient was admitted to the hospital with weakness shortness of breath cough and chest wall pain. She is having difficulty with breathing and poor p.o. intake. On evaluation and workup in the emergency department she was found to have influenza a and a pulmonary emboli. She was admitted to the hospital for further workup and management. Patient had a CT angiogram echocardiogram frequent laboratory tests. Patient was started on oral Eliquis. Her BNP was elevated her echocardiogram showed no signs of right-sided heart failure. Patient's vital signs remained stable and she was not requiring oxygen. Patient was quite weak. And unable to eat due to her influenza virus. This improved over her hospitalization. Patient has a history of atrial fibrillation she is not on anticoagulation as she had an ablation procedure. Remote history of subdural hematoma. Patient was elected to be safe to be on anticoagulation considering the new diagnosis of pulmonary emboli. Patient is on tamoxifen for breast cancer which may or may not have contributed to her pulmonary emboli. At the time of discharge patient was hemodynamically stable she was not hypoxic she says she is ambulating eating well. And is ready for discharge. We reviewed risks and complications of being on oral blood thinners. She will pick 1 up at [facility] and patient will follow-up with Dr. Mayen in 7-10 days Exam Vital Signs (past 8 hours): - 02/04/22 04:45 Temperature 97.8 F Pulse Rate 68 Respiratory Rate 18 Blood Pressure 145/74 H Pulse Oximetry 95 Oxygen Flow Rate 0 Oxygen Delivery Method Room Air Oxygen Flow Rate 0 Objective Labs Result Diagrams: 02/04/22 04:14 02/04/22 04:14 Labs: Laboratory Results - last 24 hr 02/04/22 02/04/22 04:14 04:14 WBC 6.5 RBC 3.50 L Hgb 10.4 L Hct 30.7 L MCV 87.9 MCH 29.7 MCHC 33.8 RDW 13.2 Plt Count 178 Neut % (Auto) 72.3 Lymph % (Auto) 18.3 L [place] % (Auto) 7.1 Eos % (Auto) 1.6 L Baso % (Auto) 0.7 Neut # (Auto) 4700 Lymph # (Auto) 1200 [place] # (Auto) 500 Eos # (Auto) 100 Baso # (Auto) 0 Sodium 135 L Potassium 3.9 Chloride 111 H Carbon Dioxide 20 L BUN 13 Creatinine 1.50 H Estimated GFR 37 L BUN/Creatinine Ratio 8.7 Glucose 85 Calcium 7.6 L [facility] Medical History Ankle pain (2015) Atrial fibrillation Breast cancer (2015) Chicken pox (~1962) Depression (1997) Dyspepsia Foot pain (2015) Hearing loss Hypothyroidism (1997) Idiopathic colitis Liver laceration (2020) Menopause Mitral regurgitation (05/2014) Morbid obesity with body mass index (BMI) of 40.0 to 49.9 Mumps (~1958) Obstructive sleep apnea (~10/27/09) Pulmonary contusion Right adrenal mass Rosacea (2015) Tinnitus Surgical History Anesthesia H/O cardiac radiofrequency ablation (~2014) History of bilateral salpingo-oophorectomy (BSO) (11/26/16) History of cardiac radiofrequency ablation (RFA) (01/2015) History of knee replacement (10/04/08) History of lumpectomy of left breast (2015) Status post tubal ligation (1979) Family History Brother Tachycardia Hyperlipidemia Alzheimer's dementia Bladder cancer Father CAD (coronary artery disease) Mother Age: 94 Hypothyroidism DDD (degenerative disc disease) Dementia Grandfather Heart disease Grandmother Heart disease Grandfather No problems noted. Grandmother No problems noted. Social History marital status: household members: family lives independently: Yes caregiver/support person: No housing: house Smoking Status: Former smoker second hand exposure: No alcohol intake: never substance use type: does not use Discharge Plan Discharge Plan Patient Disposition: Home Discharge orders & Medications Prescriptions: New Eliquis 5 mg tablet 10 mg PO BID Qty: 60 0RF Rx Instructions: take two tabs twice a day for 5 days then one tab twice a day Continued metoprolol succinate 50 mg tablet extended release 24 hr 50 mg PO DAILY Label Comments: Takes at bedtime atorvastatin 20 mg tablet See Rx Instructions .ROUTE .COMPLEX Qty: 90 2RF Dose Instruction: Take 1 tablet (20 mg) by mouth every evening Rx Instructions: Take 1 tablet (20 mg) by mouth every evening lisinopril 5 mg tablet 2.5 mg PO DAILY Qty: 45 3RF Rx Instructions: patient takes at night levothyroxine 125 mcg tablet 125 mcg PO DAILY Qty: 90 2RF tamoxifen 20 mg Tablet 20 mg PO DAILY Qty: 90 3RF flecainide 100 mg tablet 50 mg PO Q12H Label Comments: take 1 tablet by mouth every 12 hours metronidazole 0.75 % Gel 1 applic TOPICAL BEDTIME PRN (Reason: ROSACIA) cholecalciferol (vitamin D3) [Vitamin D3] 2,000 unit Capsule 2,000 unit PO DAILY Discontinued aspirin [Adult Aspirin Regimen] 81 mg tablet,delayed release (DR/EC) 81 mg PO DAILY No Action (DME) disabled parking permit See Rx Instructions .Route .MEDSUPPLY Qty: 1 0RF Rx Instructions: My patient cannot walk 200 feet without stopping to rest or must use assistive device. Walking is severely limited due to arthritic, neurological or orthopedic condition. Uses portable oxygen or walking restricted by lung disease (DME) ResMed AirSense 10 CPAP Qty: 1 Dose Instruction: As directed Label Comments: Pressure: 9-13 cmH2O DME: [employer] [facility]: Rx Instructions: As directed Follow up/Referrals: Lily Belcher MD [Primary Care Provider] - Discharge Data Primary Care Provider: Lily Belcher
[2022-02-04 08:42] VITALS: BP 140/67; PULSE 67
[2022-02-04] MEDS: METOPROLOL ER 50 MG TABLET PO (08:42)
[2022-02-04] MEDS: ASPIRIN EC 81 MG TABLET PO (08:42)
[2022-02-04] MEDS: APIXABAN 5 MG TABLET 10 MG PO (08:42)
[2022-02-04] MEDS: TAMOXIFEN 10 MG TABLET 20 MG PO (08:42)
[2022-02-04 08:43] VITALS: BP 140/67; PULSE 67
[2022-02-04] MEDS: lisinopriL 5 MG TABLET 2.5 MG PO (08:43)
--- NOTE | 2022-02-04 09:33 | CM.DPC ---
DCP Cont: Per MD, pt medically stable for discharge. Pt to discharge home via personal POV. No further needs identified. Jazmin Alcantara, RN/DCP
== END 2022-02-04 09:10 | disposition home or self-care (01) ==
LOC: ED 13:37 → AC 14:19
PROVIDERS: Admitting Provider Family Medicine; Emergency Provider Emergency Medicine; PCP Family Medicine; Referring Provider Emergency Medicine; Visit Provider Family Medicine
DX: I26.99 Other pulmonary embolism without acute cor pulmonale (principal); N17.9 Acute kidney failure, unspecified; J10.1 Influenza due to other identified influenza virus with other respiratory manifestations; I12.9 Hypertensive chronic kidney disease with stage 1 through stage 4 chronic kidney disease, or unspecified chronic kidney disease; N18.9 Chronic kidney disease, unspecified; Z20.822 Contact with and (suspected) exposure to COVID-19
CPT/HCPCS: 0241U; 36415; 70450; 71046; 71275; 80048; 80053; 81003; 81015; 82550; 83605; 83735; 83880; 84145; 84484; 85025; 85379; 85610; 87040; 87086; 93005; 93970; 96360; 96361; 99217; 99218; 99224; 99285; G0378; C8929; J7613; Q9957

== ENCOUNTER → 2022-03-12 13:51 | Outpatient (CLI) | payer OTHER, SELFPAY ==
[2022-02-02 17:16] VITALS: BMI 36.1
[2022-03-12 15:14] LABS: Prothrombin Time 74.9 SECONDS (10.1-12.7)
[2022-03-12 15:19] LABS: INR 6.4 (0.9-1.3)
== END ==
PROVIDERS: PCP Family Medicine; Referring Provider Family Medicine; Visit Provider Family Medicine
DX: R79.1 Abnormal coagulation profile (principal)
CPT/HCPCS: 36415; 85610

== ENCOUNTER → 2022-05-17 11:40 | Outpatient (CLI) | payer OTHER, SELFPAY ==
[2022-02-02 17:16] VITALS: BMI 36.1
[2022-05-17 13:17] LABS: TSH w/ Reflex to FT4 1.29 uIU/mL (0.47-4.68)
== END ==
PROVIDERS: PCP Family Medicine; Referring Provider Family Medicine; Visit Provider Family Medicine
DX: E03.9 Hypothyroidism, unspecified (principal); E04.1 Nontoxic single thyroid nodule
CPT/HCPCS: 36415; 84443

== ENCOUNTER → 2022-08-12 13:57 | Outpatient (CLI) | payer OTHER, SELFPAY ==
[2022-02-02 17:16] VITALS: BMI 36.1
--- NOTE | 2022-08-12 13:58 | DI.CT.S_ITS ---
PROCEDURE: CT CHEST WO CON INDICATIONS: mass of lower lobe of right lung TECHNIQUE: Noncontrast 2.0-2.5 mm thick sections acquired from the pulmonary apices to the posterior costophrenic angles. 7 mm thick axial MIP, and 5 mm coronal and sagittal reformats were then acquired. A low radiation dose technique was utilized. COMPARISON: [facility], CT, CT CHEST ABD PEL WO CON, 08/11/2021, 14:00. [facility], CT, CT ANGIO CHEST PE PROTOCOL, 02/02/2022, 12:26. [facility], CT, CT CHEST WO CON, 04/30/2019, 13:28. FINDINGS: Image quality: Diagnostic, given the low radiation dose technique. Lungs and pleura: The patchy ground-glass airspace opacities previously visualized in the dependent right lung base on the comparison CT dated February 02, 2022 have resolved. A spiculated mass remains within the right lung base which measures 1.5 x 1.0 x 0.9 cm. This is unchanged from the comparison CT dated February 02, [address] of the chest dated August 11, 2021 focal cystic bronchiectasis is also present in this region, as before.. No new acute airspace opacities or new pulmonary nodules. Mediastinum: Heart size is normal. No pericardial effusion. No mediastinal adenopathy by size criteria. Thoracic aorta and central pulmonary arteries are normal in size. Esophagus is normal in caliber. No hiatal hernia. Bones and chest wall: No suspicious bony lesions. No vertebral body compression fractures. No axillary or supraclavicular adenopathy by size criteria. Thyroid gland is unremarkable. Abdomen: Visualized upper abdomen solid organs and bowel loops appear normal in the absence of contrast. IMPRESSION: 1. Stable appearance of a spiculated nodule within the right lower lobe when compared with the study dated August 11, 2021 and the study dated February 02, 2022. Although this may represent a benign process, indolent neoplasm cannot be excluded. If clinically indicated, this lesion is likely amenable to CT-guided percutaneous biopsy. Alternatively, six-month follow-up is recommended. LUNG-RADS 3; 6 month follow up Dictated by: Radha Sharma M.D. on 08/12/2022 at 16:30 Approved by: Radha Sharma M.D. on 08/12/2022 at 16:39
== END ==
PROVIDERS: PCP Family Medicine; Referring Provider Internal Medicine Hematology & Oncology; Visit Provider Internal Medicine Hematology & Oncology
DX: E04.1 Nontoxic single thyroid nodule (principal); R91.8 Other nonspecific abnormal finding of lung field
CPT/HCPCS: 71250

== ENCOUNTER → 2022-08-23 09:08 | Outpatient (CLI) | payer OTHER, SELFPAY ==
[2022-02-02 17:16] VITALS: BMI 36.1
--- NOTE | 2022-08-23 09:09 | DI.US.S_ITS ---
PROCEDURE: US THYROID INDICATIONS: LEFT THYROID NODULE TECHNIQUE: Real-time scanning was performed of the thyroid gland, with image documentation. COMPARISON: [facility], [place], US THYROID, 12/21/2021, 8:28. FINDINGS: Right: Thyroid lobe measures 4.9 x 1.6 x 1.8 cm, and is homogeneous in echotexture. Left: Thyroid lobe measures 5.0 x 1.6 x 1.8 cm, and is homogenous in echotexture. Isthmus: 0.5 cm thick. Nodule number: 1 Location: Left mid posterior Size: 1.7 x 1.0 x 1.2 cm, not significantly changed Composition: Solid Echogenicity: Isoechoic Shape: Wider than tall Margins: Smooth Echogenic foci: None Total points: 3 ACR TI-RADS category: Mildly suspicious A 0.9 cm hyperechoic focus is seen inferior to the right thyroid lobe that may represent a normal lymph node versus focal fat or possibly a parathyroid gland. IMPRESSION: Stable left thyroid nodule. Recommend continued imaging follow-up. ACR TI-RADS definitions and recommendations: TI-RADS 1 (benign): 0 points. FNA not needed. TI-RADS 2 (not suspicious): 2 points. FNA not needed. TI-RADS 3 (mildly suspicious): 3 points. * FNA if 2.5 cm or larger, follow up if 1.5 cm or larger (at 1, 3, and 5 years). TI-RADS 4 (moderately suspicious): 4-6 points. * FNA if 1.5 cm or larger, follow up if 1 cm or larger (at 1, 2, 3, and 5 years). TI-RADS 5 (highly suspicious): 7 points or more. * FNA if 1 cm or larger, follow up if 0.5 cm or larger (every year for 5 years). Approved by: Bill Goncalves M.D. on 08/23/2022 at 12:57
== END ==
PROVIDERS: PCP Family Medicine; Referring Provider Internal Medicine Hematology & Oncology; Visit Provider Internal Medicine Hematology & Oncology
DX: E04.1 Nontoxic single thyroid nodule (principal); R91.8 Other nonspecific abnormal finding of lung field
CPT/HCPCS: 76536

== ENCOUNTER → 2023-07-06 07:07 | Outpatient (CLI) | payer OTHER, SELFPAY ==
[2022-02-02 17:16] VITALS: BMI 36.1
--- NOTE | 2023-07-06 07:09 | DI.US.S_ITS ---
PROCEDURE: US ABDOMEN LIMITED INDICATIONS: abdominal wall u/s TECHNIQUE: Real-time focused scanning was performed of the abdomen, with image documentation. COMPARISON: [facility], , US ABDOMEN COMPLETE, 04/10/2018, 9:35. FINDINGS: Periumbilical hernia containing fat. The sac measures approximately 6.2 x 2.1 cm and the neck measures 2.3 cm. This is nearly completely reducible. IMPRESSION: Wide-mouth, periumbilical hernia containing fat. Dictated by: Papo Navarro M.D. on 07/06/2023 at 9:42 Approved by: Papo Navarro M.D. on 07/06/2023 at 9:43
== END ==
PROVIDERS: PCP Family Medicine; Referring Provider Family Medicine; Visit Provider Family Medicine
DX: K42.9 Umbilical hernia without obstruction or gangrene (principal)
CPT/HCPCS: 76705

== ENCOUNTER 2023-08-30 09:50 | Day surgery (SDC) | payer OTHER, SELFPAY ==
[2022-02-02 17:16] VITALS: BMI 36.1
[2023-08-25 08:52] VITALS: BMI 38.4
[2023-08-30] VITALS (8 sets, daily range): BP systolic 125–138; BP diastolic 61–79; PULSE 59–66; RESP 12–19; TEMP 36.5–37.2; O2SAT 90–100; BMI 38.0
[2023-08-30] MEDS: LACTATED RINGERS 1,000 ML 42 ML IV (10:10)
--- NOTE | 2023-08-30 10:19 | PM.HP.1 ---
History of Present Illness History of Present Illness Date Patient Seen: 08/30/23 Chief complaint: Open incisional hernia repair w/mesh Narrative: Marifer is a 73-year-old woman with a ventral incisional hernia at the extraction site from her laparoscopic-assisted right hemicolectomy scar. Her surgery was about 2 years ago. See office note from July for details. [facility] Medical History (Updated 07/27/23 @ 13:09 by Parker Mariee MD) Idiopathic colitis Breast cancer (2015) Right adrenal mass Pulmonary contusion Subarachnoid hemorrhage Subdural hematoma Liver laceration (2020) Tinnitus Hearing loss Obstructive sleep apnea (~10/27/09) Morbid obesity with body mass index (BMI) of 40.0 to 49.9 Menopause Dyspepsia Mitral regurgitation (05/2014) Foot pain (2015) Chicken pox (~1962) Depression (1997) Hypothyroidism (1997) Mumps (~1957) Rosacea (2015) Atrial fibrillation Ankle pain (2015) Surgical History (Updated 08/25/23 @ 08:54 by Gin Barry RN) Hx of right hemicolectomy (08/25/21) History of lumpectomy of left breast (2015) H/O cardiac radiofrequency ablation (~2014) History of cardiac radiofrequency ablation (RFA) (01/2015) Anesthesia History of bilateral salpingo-oophorectomy (BSO) (11/26/16) Status post tubal ligation (1979) History of knee replacement (10/04/08) Family History Brother Tachycardia Hyperlipidemia Alzheimer's dementia Bladder cancer Father CAD (coronary artery disease) Mother Age: 95 Hypothyroidism DDD (degenerative disc disease) Dementia Grandfather Heart disease Grandmother Heart disease Grandfather No problems noted. Grandmother No problems noted. Social History marital status: household members: family lives independently: Yes caregiver/support person: No housing: house Smoking Status: Former smoker second hand exposure: No alcohol intake: never substance use type: does not use Meds Home Medications and Allergies Home Medications Medication Instructions Recorded Confirmed Type flecainide 100 mg tablet 50 mg PO Q12H 03/22/18 07/27/23 History metronidazole 0.75 % topical gel 1 applic topical BEDTIME PRN 03/22/18 07/27/23 History ROSACIA cholecalciferol (vitamin D3) 50 2,000 unit PO DAILY 09/28/18 07/27/23 History mcg (2,000 unit) capsule (Vitamin D3) metoprolol succinate 50 mg 50 mg PO DAILY 08/28/19 07/27/23 History tablet,extended release 24 [address] permit #1 ea 06/01/21 07/27/23 Rx lisinopril 5 mg tablet 2.5 mg (1/2 x 5 mg) PO DAILY #45 09/09/21 07/27/23 Rx tabs ResMed AirSense 10 CPAP #1 ea 10/13/21 07/27/23 History aspirin 81 mg tablet,delayed 81 mg PO DAILY 05/21/22 07/27/23 History release (Adult Low Dose Aspirin) atorvastatin 20 mg tablet 20 mg PO QPM #90 tabs 05/10/23 07/27/23 Rx levothyroxine 125 mcg tablet 125 mcg PO DAILY #90 tabs 08/02/23 Rx Allergies Allergy/AdvReac Type Severity Reaction Status Date / Time nickel [NICKEL] Allergy Mild RASH Verified 08/30/23 10:13 Exam Narrative Exam Narrative: Supraumbilical ventral incisional hernia Fascial defect is roughly 3 cm Assessment & Plan Assessment and plan (1) Ventral incisional hernia: Status: Acute Plan We reviewed the risks and benefits of open ventral incisional hernia repair with mesh and she would like to proceed.
[2023-08-30] MEDS: CEFAZOLIN 2 GM/100 ML PREMIX 100 ML IV (11:09)
--- NOTE | 2023-08-30 11:18 | SUR.OPER ---
Supine on padded OR bed, head on pillow, arms secured on padded arm boards at <90 degrees abduction, legs uncrossed, safety belt at thigh, tape over blanket over lower legs.
[2023-08-30] MEDS: BUPIVACAINE 0.5% (PF) 30 ML, EPINEPHrine 0.15 MG INJ (11:23)
--- NOTE | 2023-09-14 17:38 | PM.OP.1 ---
Operative Date/Time/Diagnoses Date of procedure: 08/30/23 Time of procedure: 13:00 Pre-op diagnosis: Ventral incisional hernia Post-op diagnosis: same Procedure & Clinicians Procedure: Open ventral incisional hernia repair with mesh Same procedure as scheduled: Yes Surgeon: Parker Mariee Handbag Frames Inspector: Maik Bowman Anesthesia Type: General Operative Notes Procedure in detail: Ancef was administered. The patient was brought to the operating room, placed on the table in the supine position and general anesthesia was induced. The abdomen was prepped and draped in the usual fashion. A time-out was performed. A 6 cm incision was made in the upper midline over the bulge. Dissection was carried down to the hernia sac. The hernia sac was freed from the fascial ring and the peritoneal cavity was entered. There was no bowel or omentum adherent to the sac. The fascial defect was approximately 6 cm in diameter and was closed with multiple interrupted 0 Ethibond sutures. The subcutaneous adipose tissue was cleared off of the anterior sheath circumferentially about 2 cm in each direction. A piece of polypropylene mesh was trimmed to fit over the fascial closure and secured with Tisseel. Once the Tisseel was dried the subcutaneous adipose tissue was closed with interrupted 3-0 Vicryl sutures. The skin was closed with multiple interrupted 3-0 Vicryl dermal sutures followed by a running 4 Monocryl subcuticular closure. Steri-Strips were applied and an abdominal binder was applied. EBL: 10 mL Maik CAMEJO provided assistance with exposure, retraction and closure of incisions. Post-operative Condition: stable Disposition: PACU
== END 2023-08-30 13:16 | disposition home or self-care (01) ==
PROVIDERS: PCP Family Medicine; Referring Provider Surgery; Visit Provider Surgery
PROC: (CPT 49593; principal; 2023-08-30 11:30)
DX: K43.2 Incisional hernia without obstruction or gangrene (principal)
CPT/HCPCS: 49593; C1781; J0171; J0690; J1100; J2250; J2405; J2704; J3010; J3490